=== PATIENT | female | born 1965 | race Caucasian/White ===

== ENCOUNTER 2017-01-28 21:10 | Emergency (ER) | payer BC, MEDICAID ==
--- NOTE | 2017-01-29 01:15 | EDM.PDOC ---
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 The pain radiated through to her left scapular area. It was not modifiable with breathing or position. She had no associated symptoms, such as dyspnea, nausea, diaphoresis, or sense of impending doom. The symptoms resolved on their own, without treatment, about 5 or 10 minutes later. They have not recurred. No prior similar symptoms. The patient's PCP is Dr. Moreau. Left Upper Arm Pain Score (Numeric/FACES): 5 - Related Data Allergies Allergy/AdvReac Type Severity Reaction Status Date / Time Tetanus Vaccines and Toxoid Allergy Cannot Verified 01/28/17 21:37 [Tetanus Vaccines & Toxoid] Remember Home Meds: Home Meds Gemfibrozil 600 mg PO BID 01/28/17 [History] Hydrochlorothiazide 25 mg PO DAILY 01/28/17 [History] Levothyroxine Sodium [Levoxyl] 137 mcg PO DAILY 01/28/17 [History] glipiZIDE [Glucotrol XL] 5 mg PO BID 01/28/17 [History] metFORMIN [Glucophage XR] 1,000 mg PO BID 01/28/17 [History] Past Medical History Cardiovascular History: Reports: Blood Clots/VTE/DVT, High Cholesterol, Hypertension Gastrointestinal History: Reports: Cholelithiasis Musculoskeletal History: Reports: Arthritis (neck) Endocrine/Metabolic History: Reports: Diabetes, Type II, Hypothyroidism, Obesity /BMI 30+ - Past Surgical History HEENT Surgical History: Reports: Adenoidectomy, Tonsillectomy GI Surgical History: Reports: Cholecystectomy Social & Family History - Tobacco Use Smoking Status *Q: Current Every Day Smoker Years of Tobacco use: 25 Packs/Tins Daily: 1 - Caffeine Use Caffeine Use: Reports: Tea - Alcohol Use Alcohol Use History: Yes Alcohol Use Frequency: Rarely - Recreational Drug Use Recreational Drug Use: No - Living Situation & Occupation Living situation: Reports: Single, Other (Roommate) 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[employer]) ED ROS GENERAL - Review of Systems Review Of Systems: See Below Constitutional: Reports: No Symptoms HEENT: Reports: No Symptoms Respiratory: Reports: No Symptoms Cardiovascular: Reports: No Symptoms Endocrine: Reports: No Symptoms GI/Abdominal: Reports: No Symptoms : Reports: No Symptoms Musculoskeletal: Reports: No Symptoms Skin: Reports: No Symptoms Neurological: Reports: No Symptoms Psychiatric: Reports: No Symptoms Hematologic/Lymphatic: Reports: No Symptoms Immunologic: Reports: No Symptoms ED EXAM, GENERAL - Physical Exam Exam: See Below Exam Limited By: No Limitations General Appearance: Alert, WD/WN, No Apparent Distress Eye Exam: Bilateral Eye: Normal Inspection Ears: Normal External Exam, Hearing Grossly Normal Nose: Normal Inspection, No Blood Throat/Mouth: Normal Inspection, Normal Lips, Normal Voice, No Airway Compromise Head: Atraumatic, Normocephalic Neck: Normal Inspection, Full Range of Motion Respiratory/Chest: No Respiratory Distress, Lungs Clear, Normal Breath Sounds, No Accessory Muscle Use, Chest Non-Tender Cardiovascular: Normal Peripheral Pulses, Regular Rate, Rhythm, No Gallop, No JVD, No Murmur, No Rub Peripheral Pulses: 4+: Radial (L), Radial (R) GI/Abdominal: Normal Bowel Sounds, Soft, Non-Tender, No Organomegaly, No Distention, No Abnormal Bruit, No Mass, Other (Obese) (Female) Exam: Deferred Rectal (Female) Exam: Deferred Back Exam: Normal Inspection, Full Range of Motion, Other (No tenderness to palpation of the left parascapular area, where the patient indicates that she had pain earlier) Extremities: Normal Inspection, Normal Range of Motion, No Pedal Edema, Normal Capillary Refill Neurological: Alert, Oriented, Normal Cognition, No Motor/Sensory Deficits Psychiatric: Normal Affect Skin Exam: Warm, Dry, Intact, Normal Color, No Rash Lymphatic: No Adenopathy Course - Vital Signs Last Recorded V/S: Last Vital Signs Temp 35.9 C 01/28/17 21:32 Pulse 80 01/29/17 01:29 Resp 18 01/29/17 01:29 BP 128/79 01/29/17 01:29 Pulse Ox 98 01/29/17 01:29 - Orders/Labs/Meds Orders: Active Orders 24 hr Category Date Time Status Chest 2V [CR] Stat Exams 01/29/17 00:20 Taken Labs: Laboratory Tests 01/29/17 01/29/17 Range/Units 00:33 00:33 D-Dimer, Quantitative 0.38 (0.19-0.59) mg/L Sodium 139 (136-145) mEq/L Potassium 4.3 (3.5-5.1) mEq/L Chloride 103 (98-107) mEq/L Carbon Dioxide 29 (21-32) mEq/L Anion Gap 11.3 (5-15) BUN 27 H (7-18) mg/dL Creatinine 1.6 H (0.55-1.02) mg/dL Est Cr Clr Drug Dosing 39.82 mL/min Estimated GFR (MDRD) 34 (>60) mL/min BUN/Creatinine Ratio 16.9 (14-18) Glucose 162 H (74-106) mg/dL Calcium 9.9 (8.5-10.1) mg/dL - Re-Assessments/Exams Free Text/Narrative Re-Assessment/Exam: 01/29/17 01:14 Two-view chest radiograph appears to be grossly normal. Cardiac silhouette is within normal limits. No pulmonary vascular congestion. No pleural effusions. No focal infiltrate. No pneumothorax. Formal read per the Radiologist pending. The patient's BMP reveals an elevated BUN/Cr of 27/1.6, along with modest hyperglycemia 162. No prior labs available for comparison. Tonight's workup essentially excludes a pulmonary embolus, pneumothorax, and pneumonia. The patient's pain was most likely caused by muscle spasm. Departure - Departure Time of Disposition: 01:20 Disposition: Home, Self-Care 01 Condition: Good Clinical Impression: Muscle spasm, Renal insufficiency, Hyperglycemia due to type 2 diabetes mellitus - Discharge Information Instructions: Muscle Cramps and Spasms, [id number] Referrals: John Moreau MD [Primary Care Provider] - Forms: ED Department Discharge Additional Instructions: You were seen in the emergency room for left-sided chest pain that radiated through to your left back. Workup in the ER included blood work and a chest x-ray. Your workup showed that you do not have a blood clot in your lungs, a collapsed lung, or pneumonia. Your workup showed that your kidneys are not functioning optimally. Your BUN/Cr were 27/1.6, and your blood sugar was modestly elevated at 162. We do not have prior labs to compare, therefore we cannot say if your kidney dysfunction is a new or chronic problem. We recommend you follow-up with Dr. Moreau in this regard. Your chest pain was MOST LIKELY due to a muscle spasm. If any other problems, please do not hesitate to return to the ER. - My Orders Last 24 Hours: My Active Orders 01/29/17 00:20 Chest 2V [CR] Stat - Assessment/Plan Last 24 Hours: My Active Orders 01/29/17 00:20 Chest 2V [CR] Stat
[2017-01-29 01:52] VITALS: BP 128/79
--- NOTE | 2017-01-29 10:41 | CR ---
Chest: Two views of the chest were obtained. Comparison: No previous chest x-ray. Heart size and mediastinum are normal. Lungs are clear. Slight degenerative change is scattered within the spine. Minimal scoliosis is noted. Impression: 1. Incidental findings. Nothing acute is identified on two-view chest x-ray. Diagnostic code #2
== END 2017-01-29 01:29 | disposition home or self-care (01) ==
LOC: JD.ED 21:10
DX: M62.838 Other muscle spasm (principal); N28.9 Disorder of kidney and ureter, unspecified; E11.65 Type 2 diabetes mellitus with hyperglycemia; E78.00 Pure hypercholesterolemia, unspecified; I10 Essential (primary) hypertension; E03.9 Hypothyroidism, unspecified; F17.210 Nicotine dependence, cigarettes, uncomplicated; E66.9 Obesity, unspecified; Z68.41 Body mass index [BMI] 40.0-44.9, adult; Z90.49 Acquired absence of other specified parts of digestive tract; Z98.890 Other specified postprocedural states; Z86.718 Personal history of other venous thrombosis and embolism; Z79.84 Long term (current) use of oral hypoglycemic drugs; Z79.899 Other long term (current) drug therapy; Z88.8 Allergy status to other drugs, medicaments and biological substances
CPT/HCPCS: 36415; 71020; 71020-26; 80048; 85379; 99283; 99284

== ENCOUNTER 2017-07-20 09:59 | Inpatient (IN) | payer MEDICAID ==
[2017-07-20] MEDS ORDERED: Ampicillin/Sulbactam Na 3 GM in Sodium Chloride 0.9% 100 ML IV ONE (10:44)
--- NOTE | 2017-07-20 10:51 | EDM.PDOC ---
ED HPI GENERAL MEDICAL PROBLEM - General Chief Complaint: Lower Extremity Injury/Pain Stated Complaint: LEFT LEG SWELLING Time Seen by Provider: 07/20/17 10:07 Source of Information: Reports: Patient, Family, RN Notes Reviewed History Limitations: Reports: No Limitations - History of Present Illness INITIAL COMMENTS - FREE TEXT/NARRATIVE: The patient states she has had swelling, erythema, and pain to her left leg for the past 2-3 days. No recent fever. The patient is diabetic, but has not checked her sugar in about one month. The patient denies prior similar symptoms. She states that she has a history of pulmonary embolus about 20 years ago, but was told at the time that the blood clots formed in her lungs. There are ulcerations on the dorsal aspect of her left second and fourth toes - the patient states that these are about 2 years old. The patient states that she uses antibacterial soap at home. The patient's PCP is Dr. Moreau. Left Lower Leg Pain Score (Numeric/FACES): 9 - Related Data Allergies Allergy/AdvReac Type Severity Reaction Status Date / Time Tetanus Vaccines and Toxoid Allergy Cannot Verified 01/28/17 21:37 [Tetanus Vaccines & Toxoid] Remember Home Meds: Home Meds Gemfibrozil 600 mg PO BID 01/28/17 [History] Hydrochlorothiazide 25 mg PO DAILY 01/28/17 [History] Levothyroxine Sodium [Levoxyl] 137 mcg PO DAILY 01/28/17 [History] glipiZIDE [Glucotrol XL] 5 mg PO BID 01/28/17 [History] metFORMIN [Glucophage XR] 1,000 mg PO BID 01/28/17 [History] Aspirin 325 mg PO DAILY 07/20/17 [History] Past Medical History Cardiovascular History: Reports: Blood Clots/VTE/DVT, High Cholesterol, Hypertension Gastrointestinal History: Reports: Cholelithiasis Musculoskeletal History: Reports: Arthritis Endocrine/Metabolic History: Reports: Diabetes, Type II, Hypothyroidism, Obesity /BMI 30+ - Past Surgical History HEENT Surgical History: Reports: Adenoidectomy, Tonsillectomy GI Surgical History: Reports: Cholecystectomy Social & Family History - Tobacco Use Smoking Status *Q: Current Every Day Smoker Years of Tobacco use: 30 Packs/Tins Daily: 0.5 - Caffeine Use Caffeine Use: Reports: Soda - Recreational Drug Use Recreational Drug Use: No - Living Situation & Occupation Living situation: Reports: Single, Other (Roommate) 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 ED EXAM, GENERAL - Physical Exam Exam: See Below Exam Limited By: No Limitations General Appearance: Alert, WD/WN, No Apparent Distress Eye Exam: Bilateral Eye: Normal Inspection Ears: Normal External Exam, Hearing Grossly Normal Nose: Normal Inspection, No Blood Throat/Mouth: Normal Inspection, Normal Lips, Normal Voice, No Airway Compromise Head: Atraumatic, Normocephalic Neck: Normal Inspection, Full Range of Motion Respiratory/Chest: No Respiratory Distress, Lungs Clear, Normal Breath Sounds, No Accessory Muscle Use Cardiovascular: Normal Peripheral Pulses, Regular Rate, Rhythm, No Gallop, No JVD, No Murmur, No Rub Peripheral Pulses: 4+: Radial (L), Radial (R) GI/Abdominal: Normal Bowel Sounds, Soft, Non-Tender, No Organomegaly, No Distention, No Abnormal Bruit, No Mass, Other (Obese) (Female) Exam: Deferred Rectal (Female) Exam: Deferred Extremities: Other (There is significant swelling and erythema to the left leg, up to the knee. The skin is dry and flaky. The patient reports tenderness to palpation. There is calor to palpation.) Neurological: Alert, Oriented, Normal Cognition, No Motor/Sensory Deficits Psychiatric: Normal Affect Skin Exam: Warm, Dry, Intact, Normal Color, No Rash Course - Vital Signs Last Recorded V/S: Last Vital Signs Temp 36.3 C 07/20/17 10:07 Pulse 92 07/20/17 10:07 Resp 20 07/20/17 10:07 BP 104/65 07/20/17 10:07 Pulse Ox 99 07/20/17 10:07 - Orders/Labs/Meds Orders: Active Orders 24 hr Category Date Time Status Accu Check [Blood Glucose Check, Bedside] [RC] ONETIME Care 07/20/17 10:46 Active Labs: Laboratory Tests 07/20/17 07/20/17 07/20/17 Range/Units 10:44 10:44 10:44 WBC 14.10 H (3.98-10.04) K/mm3 RBC 4.02 (3.98-5.22) M/mm3 Hgb 12.8 (11.2-15.7) gm/L Hct 37.9 (34.1-44.9) % MCV 94.3 (79.4-94.8) fl MCH 31.8 (25.6-32.2) pg MCHC 33.8 (32.2-35.5) g/dl RDW Std Deviation 53.5 H (36.4-46.3) fL Plt Count 183 (182-369) K/mm3 MPV 11.2 (9.4-12.3) fl Neutrophils % (Manual) 85 H (40-60) % Band Neutrophils % 0 (0-10) % Lymphocytes % (Manual) 10 L (20-40) % Atypical Lymphs % 0 % Monocytes % (Manual) 4 (2-10) % Eosinophils % (Manual) 1 (0.7-5.8) % Basophils % (Manual) 0 L (0.1-1.2) Platelet Estimate Adequate Microcytosis 1+ slight RBC Morph Comment abnormal PT 12.7 (8.0-13.0) SECONDS INR 1.15 APTT 30 (22-36) SECONDS Sodium 130 L (136-145) mEq/L Potassium 4.0 (3.5-5.1) mEq/L Chloride 95 L (98-107) mEq/L Carbon Dioxide 22 (21-32) mEq/L Anion Gap 17.0 H (5-15) BUN 50 H (7-18) mg/dL Creatinine 2.0 H (0.55-1.02) mg/dL Est Cr Clr Drug Dosing 31.50 mL/min Estimated GFR (MDRD) 26 (>60) mL/min BUN/Creatinine Ratio 25.0 H (14-18) Glucose 108 H (74-106) mg/dL POC Glucose (70-105) mg/dL Calcium 9.6 (8.5-10.1) mg/dL Magnesium 1.8 (1.8-2.4) mg/dl Total Bilirubin 0.4 (0.2-1.0) mg/dL AST 37 (15-37) U/L ALT 25 (14-59) U/L Alkaline Phosphatase 82 (46-116) U/L Total Protein 8.3 H (6.4-8.2) g/dl Albumin 2.8 L (3.4-5.0) g/dl Globulin 5.5 gm/dL Albumin/Globulin Ratio 0.5 L (1-2) MRSA (PCR) 07/20/17 07/20/17 Range/Units 10:45 10:49 WBC (3.98-10.04) K/mm3 RBC (3.98-5.22) M/mm3 Hgb (11.2-15.7) gm/L Hct (34.1-44.9) % MCV (79.4-94.8) fl MCH (25.6-32.2) pg MCHC (32.2-35.5) g/dl RDW Std Deviation (36.4-46.3) fL Plt Count (182-369) K/mm3 MPV (9.4-12.3) fl Neutrophils % (Manual) (40-60) % Band Neutrophils % (0-10) % Lymphocytes % (Manual) (20-40) % Atypical Lymphs % % Monocytes % (Manual) (2-10) % Eosinophils % (Manual) (0.7-5.8) % Basophils % (Manual) (0.1-1.2) Platelet Estimate Microcytosis RBC Morph Comment PT (8.0-13.0) SECONDS INR APTT (22-36) SECONDS Sodium (136-145) mEq/L Potassium (3.5-5.1) mEq/L Chloride (98-107) mEq/L Carbon Dioxide (21-32) mEq/L Anion Gap (5-15) BUN (7-18) mg/dL Creatinine (0.55-1.02) mg/dL Est Cr Clr Drug Dosing mL/min Estimated GFR (MDRD) (>60) mL/min BUN/Creatinine Ratio (14-18) Glucose (74-106) mg/dL POC Glucose 115 H (70-105) mg/dL Calcium (8.5-10.1) mg/dL Magnesium (1.8-2.4) mg/dl Total Bilirubin (0.2-1.0) mg/dL AST (15-37) U/L ALT (14-59) U/L Alkaline Phosphatase (46-116) U/L Total Protein (6.4-8.2) g/dl Albumin (3.4-5.0) g/dl Globulin gm/dL Albumin/Globulin Ratio (1-2) MRSA (PCR) Negative Meds: Medications Discontinued Medications Generic Name Dose Route Start Last Admin Trade Name Meng PRN Reason Stop Dose Admin Hydromorphone HCl 1 mg 07/20/17 12:33 07/20/17 12:39 Dilaudid IVPUSH 07/20/17 12:34 1 mg ONETIME ONE Administration Ampicillin Sodium/Sulbactam 100 mls @ 200 mls/hr 07/20/17 10:44 07/20/17 12: 22 Sodium 3 gm/ Sodium Chloride IV 07/20/17 11:13 200 mls/hr ONETIME ONE Administration Vancomycin HCl 2 gm/ Sodium 250 mls @ 250 mls/hr 07/20/17 10:44 07/20/17 11: 02 Chloride IV 07/20/17 11:43 250 mls/hr ONETIME STA Administration - Re-Assessments/Exams Free Text/Narrative Re-Assessment/Exam: 07/20/17 10:46 The patient appears to have significant cellulitis involving her entire left leg. The source could be one of the lesions on the dorsal aspect of her second or fourth toe, although she states that these are about 2 years old. I will order blood work, including an Accu-Chek, as the patient acknowledges that she has not checked her blood sugar in about one month, and an ultrasound of the left lower extremity to evaluate for a DVT. I will start the patient on empiric Unasyn and vancomycin, and I have ordered a MRSA screen. A pen demarcation of the superior aspect of the erythema on the left leg, just distal to the left knee, has been made. The patient will need to be hospitalized for IV antibiotics until improvement of her cellulitis is demonstrated, at which time she can be switched to oral antibiotics. 07/20/17 10:55 The patient's Accu-Chek returned 115. No immediate treatment is required. 07/20/17 13:00 Notified by the laboratory that the patient's MRSA screen has returned negative. 07/20/17 13:45 Venous Doppler of the left lower extremity is read by Dr. Horan as: 1. Popliteal cyst. Subcutaneous edema. 2. No definite findings of deep venous thrombosis seen within the left lower extremity right common femoral vein. 3. Slightly limited study as noted above. 07/20/17 13:[address] Lewis at 13:46. She agrees to admit the patient to Med Surg. The patient meets full admission criterion. Departure - Departure Time of Disposition: 13:51 Disposition: Admitted As Inpatient 68 Condition: Fair Clinical Impression: Cellulitis of left leg, Chronic kidney disease - Discharge Information - My Orders Last 24 Hours: My Active Orders 07/20/17 10:46 Accu Check [Blood Glucose Check, Bedside] [RC] ONETIME - Assessment/Plan Last 24 Hours: My Active Orders 07/20/17 10:46 Accu Check [Blood Glucose Check, Bedside] [RC] ONETIME
[2017-07-20] MEDS ORDERED: HYDROmorphone 1 MG/ML Syringe IVPUSH ONE (12:33)
--- NOTE | 2017-07-20 13:40 | US ---
No diagnostic code was given for this report. Following is the corrected diagnostic code: Diagnostic code #2 --- Addendum1 above dictated on [07/28/2017 10:11] by [Pastora Horan Hilton J.] --- --- Addendum1 above signed on [07/28/2017 10:13] by [Pastora Horan Hilton J.] --- --- Original report below dictated on [07/20/2017 13:36] by [Pastora Horan Hilton J.] --- --- Original report below signed on [07/20/2017 13:37] by [Pastora Horan Hilton J.] --- Left lower extremity deep venous ultrasound: Duplex and color flow imaging was obtained of the left common femoral, proximal greater saphenous, superficial femoral, popliteal, posterior tibial and peroneal veins. Technologist's note: Limited below-knee due to large body habitus and swelling Popliteal cyst is identified. Subcutaneous edema is noted within the lower extremity. No definite findings of deep venous thrombosis is seen. Impression: 1. Popliteal cyst. Subcutaneous edema. 2. No definite findings of deep venous thrombosis seen within the left lower extremity right common femoral vein. 3. Slightly limited study as noted above. If patient continues to be symptomatic recommend follow-up venous ultrasound and 48 hours. --- Addendum1 signed ---
[2017-07-20] MEDS: Sodium Chloride 0.45% 1,000 ML IV SCH (16:04)
[2017-07-20] MEDS: Insulin Aspart 100 Units/ML 3 ML Pen SUBCUT SCH ×2 (17:01→23:42)
[2017-07-20] MEDS ORDERED: Ibuprofen 600 MG Tab PO PRN (17:03)
[2017-07-20] MEDS ORDERED: 50% Dextrose in Water 50 ML Syringe IVPUSH PRN (17:12)
--- NOTE | 2017-07-20 17:15 | PCM.HP ---
H&P History of Present Illness - General Date of Service: 07/20/17 Admit Problem/Dx: Admission Diagnosis/Problem Admission Diagnosis/Problem Cellulitis Source of Information: Family, Provider History Limitations: Reports: No Limitations - History of Present Illness Initial Comments - Free Text/Narative: The patient is a 52 year old middle aged diabetic who has not checked her bloood sugar in at least a month. She states that it normally runs less than 180. She reports persistent foot ulcerations on the dorsum of each foot involving the 2 and 4 metatarsals. She stated that her feet have had ulcers for at least a year because of her shoes. The LE requiring attention on this admission is the left, the erythema extends to the knee. The leg is swollen and painful. The patient has received Unasyn, and Vancomycin in the ED. The patient reports a history of PE reportedly over 20 years ago. She has not had any recent change in her medication. She does not wish to use insulin if needed for BS control. The patient will be admitted to [facility] telemetry. Onset of Symptoms: Reports: Gradual Symptom Onset Date: 07/17/17 Duration of Symptoms: Reports: Day(s):, Getting Worse Location: Reports: Lower Extremity, Left Quality: Reports: Same as Previous Episode Improves with: Reports: Medication Worsens with: Reports: None Associated Symptoms: Reports: No Other Symptoms Left Lower Leg Pain Score (Numeric/FACES): 9 - Related Data Allergies/Adverse Reactions: Allergies Allergy/AdvReac Type Severity Reaction Status Date / Time Tetanus Vaccines and Toxoid Allergy Cannot Verified 07/20/17 15:25 [Tetanus Vaccines & Toxoid] Remember Home Medications: Home Meds Gemfibrozil 600 mg PO BID 01/28/17 [History] Hydrochlorothiazide 25 mg PO DAILY 01/28/17 [History] Levothyroxine Sodium [Levoxyl] 137 mcg PO DAILY 01/28/17 [History] glipiZIDE [Glucotrol XL] 5 mg PO BID 01/28/17 [History] metFORMIN [Glucophage XR] 1,000 mg PO BID 01/28/17 [History] Aspirin 325 mg PO DAILY 07/20/17 [History] Past Medical History Cardiovascular History: Reports: Blood Clots/VTE/DVT, High Cholesterol, Hypertension Gastrointestinal History: Reports: Cholelithiasis Musculoskeletal History: Reports: Arthritis Endocrine/Metabolic History: Reports: Diabetes, Type II, Hypothyroidism, Obesity /BMI 30+ Dermatologic History: Reports: Cellulitis - Past Surgical History HEENT Surgical History: Reports: Adenoidectomy, Tonsillectomy GI Surgical History: Reports: Cholecystectomy Social & Family History - Tobacco Use Smoking Status *Q: Current Every Day Smoker Years of Tobacco use: 30 Packs/Tins Daily: 1 - Caffeine Use Caffeine Use: Reports: Soda - Recreational Drug Use Recreational Drug Use: No - Living Situation & Occupation Living situation: Reports: Single, Other (Roommate) 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[employer]) H&P Review of Systems - Review of Systems: Review Of Systems: See Below General: Reports: Malaise, Weakness HEENT: Reports: No Symptoms Pulmonary: Reports: No Symptoms Cardiovascular: Reports: No Symptoms Gastrointestinal: Reports: No Symptoms Genitourinary: Reports: No Symptoms Musculoskeletal: Reports: Leg Pain Psychiatric: Reports: No Symptoms Neurological: Reports: No Symptoms Hematologic/Lymphatic: Reports: No Symptoms Immunologic: Reports: No Symptoms Exam - Exam Exam: See Below - Vital Signs Vital Signs: Last Vital Signs Temp 36.6 C 07/20/17 14:52 Pulse 88 07/20/17 14:52 Resp 20 07/20/17 14:52 BP 91/54 L 07/20/17 14:52 Pulse Ox 96 07/20/17 14:52 Weight: 136.123 kg - Exam Quality Assessment: DVT Prophylaxis General: Alert, Oriented, Cooperative HEENT: Pupils Equal, Pupils Reactive, PERRLA Neck: Trachea Midline Lungs: Normal Respiratory Effort, Decreased Breath Sounds Cardiovascular: Regular Rate, Regular Rhythm GI/Abdominal Exam: Normal Bowel Sounds, Soft, Non-Tender, No Organomegaly, No Distention (Female) Exam: Deferred Rectal (Female) Exam: Deferred Back Exam: Normal Inspection Extremities: Pedal Edema, Increased Warmth, Redness Skin: Warm Neurological: Cranial Nerves Intact, Normal Speech Neuro Extensive - Mental Status: Alert, Oriented x3, Normal Mood/Affect, Normal Cognition, Memory Intact Neuro Extensive - Motor, Sensory, Reflexes: CN II-XII Intact Psychiatric: Alert, Normal Affect, Normal Mood - Patient Data Lab Results Last 24 hrs: Laboratory Results - last 24 hr 07/20/17 Range/Units 16:45 POC Glucose 248 H (70-105) mg/dL Result Diagrams: 07/20/17 10:44 07/20/17 10:44 *Q Meaningful Use (ADM) - VTE *Q VTE Criteria *Q: - Stroke *Q Stroke Criteria *Q: - AMI *Q AMI Criteria *Q: Problem List Initiated/Reviewed/Updated: Yes Orders Last 24hrs: Active Orders 24 hr Category Date Time Status Activity as Tolerated [RC] .Routine Care 07/20/17 17:04 Ordered Blood Glucose Check, Bedside [RC] QIDACANDBED Care 07/20/17 17:00 Active Notify Provider Consults [RC] ASDIRECTED Care 07/20/17 17:01 Ordered Consult to Case Management [CONS] Routine Cons 07/20/17 17:02 Ordered Consult to Dietary Service Aide [Consult to Diabetic Nurse Cons 07/20/17 15:59 Active Specialist] [CONS] Routine Consult to Dietary [Consult to Slip Operator] [CONS] Cons 07/20/17 16:00 Active Routine Consult to Occupational Therapy [OT Evaluation and Cons 07/21/17 10:00 Ordered Treatment] [CONS] Routine Consult to Physical Therapy [PT Evaluation and Cons 07/21/17 10:00 Ordered Treatment] [CONS] Routine Consult to Physician [CONS] Routine Cons 07/20/17 17:00 Ordered ADA Diabetic [[employer] Diet] [DIET Diet 07/20/17 Dinner Active ] Heart Healthy Diet [DIET] Diet 07/20/17 Dinner Active CV Lower Ext Arterial Duplex [US] Routine Exams 07/21/17 16:00 Ordered Foot w wo Cont Lt [MR] Routine Exams 07/21/17 13:00 Ordered CBC W/O DIFF,HEMOGRAM [HEME] MOTH@0700 Lab 07/21/17 07:00 Ordered CBC W/O DIFF,HEMOGRAM [HEME] MOTH@0700 Lab 07/24/17 07:00 Ordered CBC W/O DIFF,HEMOGRAM [HEME] MOTH@0700 Lab 07/28/17 07:00 Ordered CBC W/O DIFF,HEMOGRAM [HEME] MOTH@0700 Lab 07/31/17 07:00 Ordered CBC W/O DIFF,HEMOGRAM [HEME] MOTH@0700 Lab 08/04/17 07:00 Ordered CBC W/O DIFF,HEMOGRAM [HEME] MOTH@0700 Lab 08/07/17 07:00 Ordered GLYCOSYLATED HEMOGLOBIN,HGBA1C [CHEM] Routine Lab 07/21/17 05:00 Ordered LIPID PANEL [CHEM] Routine Lab 07/21/17 05:00 Ordered VANCOMYCIN TROUGH [CHEM] Timed Lab 07/23/17 10:30 Ordered Ampicillin/Sulbactam Na [Unasyn] 3 gm Med 07/20/17 18:00 Active Sodium Chloride 0.9% [Normal Saline] 100 ml IV Q6H Aspirin Med 07/21/17 09:00 Ordered 325 mg PO DAILY Dextrose 50% in Water Med 07/20/17 17:12 Ordered 50 ml IVPUSH ASDIRECTED PRN Enoxaparin [Lovenox] Med 07/21/17 09:00 Ordered 30 mg SUBCUT DAILY Gemfibrozil [Lopid] Med 07/20/17 21:00 Ordered 600 mg PO BID Heparin Sodium Med 07/20/17 17:15 Ordered 5,000 units SUBCUT Q8H Ibuprofen [Motrin] Med 07/20/17 17:03 Ordered 600 mg PO Q8H PRN Insulin Aspart [NovoLOG] Med 07/20/17 17:00 Active See Protocol SUBCUT QIDACANDBED Levothyroxine [Levothroid] Med 07/21/17 09:00 Ordered 137 mcg PO DAILY Sodium Chloride 0.45% 1,000 ml Med 07/20/17 16:00 Active IV ASDIRECTED Vancomycin 1 gm Med 07/21/17 11:00 Active Vancomycin 500 mg Sodium Chloride 0.9% [Normal Saline] 500 ml IV Q24H Vancomycin Pharmacy to Dose [Pharmacy to Dose - Med 07/20/17 16:15 Pending Vancomycin] 1 dose .XX ASDIRECTED glipiZIDE [Glucotrol XL] Med 07/20/17 21:00 Ordered 5 mg PO BID metFORMIN Med 07/20/17 21:00 Ordered 1,000 mg PO BID Resuscitation Status Routine Resus Stat 07/20/17 14:56 Ordered Medication Orders Aspirin (Ecotrin) 325 mg PO DAILY [facility] Dextrose/Water (Dextrose 50% In Water) 50 ml IVPUSH ASDIRECTED PRN PRN Reason: Hypoglycemia Enoxaparin Sodium (Lovenox) 30 mg SUBCUT DAILY [facility] Gemfibrozil (Lopid) 600 mg PO BIDAC [facility] Glipizide (Glucotrol Xl) 5 mg PO BID [facility] Heparin Sodium (Porcine) (Heparin Sodium) 5,000 units SUBCUT Q8H [facility] Sodium Chloride (Sodium Chloride 0.45%) 1,000 mls @ 150 mls/hr IV ASDIRECTED [facility] Stop: 07/21/17 02:01 Last Admin: 07/20/17 16:04 Dose: 150 mls/hr Ampicillin Sodium/Sulbactam (Sodium 3 gm/ Sodium Chloride) 100 mls @ 200 mls/ hr IV Q6H [facility] Vancomycin HCl 1 gm/Vancomycin HCl 500 mg/ Sodium Chloride 500 mls @ 333 mls/ hr IV Q24H [facility] Ibuprofen (Motrin) 600 mg PO Q8H PRN PRN Reason: Pain Insulin Aspart (Novolog) 0 unit SUBCUT QIDACANDBED [facility] PRN Reason: Protocol Last Admin: 07/20/17 17:01 Dose: Not Given Levothyroxine Sodium (Levothroid) 137 mcg PO DAILY@0600 [facility] Non-Formulary Medication (Metformin) 1,000 mg PO BID [facility] Vancomycin HCl (Pharmacy To Dose - Vancomycin) 1 dose .XX ASDIRECTED [facility] Assessment/Plan Comment:: Impression: LLE diabetic foot ulcer LLE cellulitis Venous doppler is umremarkable for DVT; popliteal cyst noted. History of reportedly PE Diabetes Mellitus type II Morbid obesity Chronic HLD CKD Plan: IVF IV antibiotics Pain management Home meds Daily Labs Gen surg consult PT/OT consult CM consult DVT/GI prophylaxis Weight loss consult with dietary DM consult for review of pathophysiology. DM secondary prevention Elevated LLE as tolerated.
[2017-07-20] MEDS: metFORMIN 500 MG Tab PO SCH (18:09)
[2017-07-20] MEDS: Heparin Sodium 5,000 Units/ML Vial SUBCUT SCH (18:10)
[2017-07-20] MEDS: Ampicillin/Sulbactam Na 3 GM in Sodium Chloride 0.9% 100 ML IV SCH (18:10)
[2017-07-20] MEDS: Gabapentin 300 MG Cap PO SCH (20:30)
[2017-07-20] MEDS: Gemfibrozil 600 MG Tab PO SCH (20:30)
[2017-07-20] MEDS: glipiZIDE 5 MG Tab.ER PO SCH (20:30)
[2017-07-21] MEDS: Ampicillin/Sulbactam Na 3 GM in Sodium Chloride 0.9% 100 ML IV SCH ×2 (00:34→06:21)
[2017-07-21] MEDS: Sodium Chloride 0.45% 1,000 ML IV SCH (00:35)
[2017-07-21] MEDS: Heparin Sodium 5,000 Units/ML Vial SUBCUT SCH ×3 (01:32→17:44)
[2017-07-21] MEDS ORDERED: Levothyroxine 25 MCG Tab PO SCH (06:00)
[2017-07-21] MEDS ORDERED: Levothyroxine 125 MCG Tab PO SCH (06:00)
[2017-07-21] MEDS: Gemfibrozil 600 MG Tab PO SCH ×2 (06:26→17:44)
[2017-07-21] MEDS: metFORMIN 500 MG Tab PO SCH ×2 (06:26→18:36)
[2017-07-21] MEDS: Insulin Aspart 100 Units/ML 3 ML Pen SUBCUT SCH ×4 (07:53→23:49)
[2017-07-21] MEDS: glipiZIDE 5 MG Tab.ER PO SCH ×2 (08:54→20:48)
[2017-07-21] MEDS: Aspirin 325 MG Tab.EC PO SCH (08:54)
[2017-07-21] MEDS ORDERED: Enoxaparin 30 MG/0.3 ML Syringe SUBCUT SCH (09:00)
[2017-07-21] MEDS: Vancomycin 1500 MG in Sodium Chloride 0.9% 500 ML IV SCH ×3 (10:31)
[2017-07-21] MEDS: Saccharomyces Boulardii (Probiotic) 250 MG Cap PO SCH ×2 (10:31→20:41)
[2017-07-21] MEDS ORDERED: ceFAZolin 2 GM in Premix Bag 1 BAG IV SCH (11:00)
[2017-07-21] MEDS ORDERED: LORazepam 2 MG/ML MDV IVPUSH ONE (11:05)
[2017-07-21] MEDS ORDERED: Sodium Chloride 0.45% 1,000 ML IV SCH (11:15)
--- NOTE | 2017-07-21 11:46 | PCM.PN ---
- General Info Date of Service: 07/21/17 Subjective Update: Patient makes numerous complaints about the quality of care, and has changed her story of the injury of her foot each time she is interviewed. Functional Status: Reports: Tolerating Diet - Review of Systems General: Reports: No Symptoms HEENT: Reports: No Symptoms Pulmonary: Reports: No Symptoms Cardiovascular: Reports: No Symptoms Gastrointestinal: Reports: No Symptoms Genitourinary: Reports: No Symptoms Musculoskeletal: Reports: No Symptoms Skin: Reports: No Symptoms Neurological: Reports: No Symptoms Psychiatric: Reports: No Symptoms - Patient Data Vitals - Most Recent: Last Vital Signs Temp 36.9 C 07/21/17 08:14 Pulse 87 07/21/17 08:14 Resp 19 07/21/17 08:14 BP 87/45 L 07/21/17 08:14 Pulse Ox 91 L 07/21/17 08:14 Weight - Most Recent: 136.758 kg I&O - Last 24 Hours: Intake & Output 07/20/17 07/21/17 07/21/17 22:59 06:59 14:59 Intake Total 323 116 5220 Output Total 1450 Balance 120 -650 1063 Lab Results Last 24 Hours: Laboratory Results - last 24 hr 07/20/17 07/20/17 07/21/17 Range/Units 16:45 20:28 06:22 WBC (3.98-10.04) K/mm3 RBC (3.98-5.22) M/mm3 Hgb (11.2-15.7) gm/L Hct (34.1-44.9) % MCV (79.4-94.8) fl MCH (25.6-32.2) pg MCHC (32.2-35.5) g/dl RDW Std Deviation (36.4-46.3) fL Plt Count (182-369) K/mm3 MPV (9.4-12.3) fl Sodium (136-145) mEq/L Potassium (3.5-5.1) mEq/L Chloride (98-107) mEq/L Carbon Dioxide (21-32) mEq/L Anion Gap (5-15) BUN (7-18) mg/dL Creatinine (0.55-1.02) mg/dL Est Cr Clr Drug Dosing mL/min Estimated GFR (MDRD) (>60) mL/min BUN/Creatinine Ratio (14-18) Glucose (74-106) mg/dL POC Glucose 248 H 214 H 101 (70-105) mg/dL Hemoglobin A1c (4.50-6.20) % Lactic Acid (0.4-2.0) mmol/L Calcium (8.5-10.1) mg/dL C-Reactive Protein (<1.0) mg/dL Triglycerides (<150) mg/dL Cholesterol (<200) mg/dL LDL Cholesterol Direct (<100) mg/dL HDL Cholesterol (40-59) mg/dL 07/21/17 07/21/17 07/21/17 Range/Units 06:23 06:23 06:23 WBC 10.01 (3.98-10.04) K/mm3 RBC 3.42 L (3.98-5.22) M/mm3 Hgb 10.8 L (11.2-15.7) gm/L Hct 32.4 L (34.1-44.9) % MCV 94.7 (79.4-94.8) fl MCH 31.6 (25.6-32.2) pg MCHC 33.3 (32.2-35.5) g/dl RDW Std Deviation 53.0 H (36.4-46.3) fL Plt Count 155 L (182-369) K/mm3 MPV 11.0 (9.4-12.3) fl Sodium (136-145) mEq/L Potassium (3.5-5.1) mEq/L Chloride (98-107) mEq/L Carbon Dioxide (21-32) mEq/L Anion Gap (5-15) BUN (7-18) mg/dL Creatinine (0.55-1.02) mg/dL Est Cr Clr Drug Dosing mL/min Estimated GFR (MDRD) (>60) mL/min BUN/Creatinine Ratio (14-18) Glucose (74-106) mg/dL POC Glucose (70-105) mg/dL Hemoglobin A1c 7.10 H (4.50-6.20) % Lactic Acid (0.4-2.0) mmol/L Calcium (8.5-10.1) mg/dL C-Reactive Protein (<1.0) mg/dL Triglycerides 228 H (<150) mg/dL Cholesterol 141 (<200) mg/dL LDL Cholesterol Direct 92 (<100) mg/dL HDL Cholesterol 18.0 L (40-59) mg/dL 07/21/17 07/21/17 Range/Units 06:23 10:15 WBC (3.98-10.04) K/mm3 RBC (3.98-5.22) M/mm3 Hgb (11.2-15.7) gm/L Hct (34.1-44.9) % MCV (79.4-94.8) fl MCH (25.6-32.2) pg MCHC (32.2-35.5) g/dl RDW Std Deviation (36.4-46.3) fL Plt Count (182-369) K/mm3 MPV (9.4-12.3) fl Sodium 134 L (136-145) mEq/L Potassium 3.5 (3.5-5.1) mEq/L Chloride 99 (98-107) mEq/L Carbon Dioxide 22 (21-32) mEq/L Anion Gap 16.5 H (5-15) BUN 53 H (7-18) mg/dL Creatinine 1.7 H (0.55-1.02) mg/dL Est Cr Clr Drug Dosing 35.62 mL/min Estimated GFR (MDRD) 32 (>60) mL/min BUN/Creatinine Ratio 31.2 H (14-18) Glucose 86 (74-106) mg/dL POC Glucose (70-105) mg/dL Hemoglobin A1c (4.50-6.20) % Lactic Acid 1.0 (0.4-2.0) mmol/L Calcium 8.7 (8.5-10.1) mg/dL C-Reactive Protein 34.2 H* (<1.0) mg/dL Triglycerides (<150) mg/dL Cholesterol (<200) mg/dL LDL Cholesterol Direct (<100) mg/dL HDL Cholesterol (40-59) mg/dL Med Orders - Current: Current Medications Aspirin (Ecotrin) 325 mg PO DAILY [facility] Last Admin: 07/21/17 08:54 Dose: Not Given Dextrose/Water (Dextrose 50% In Water) 50 ml IVPUSH ASDIRECTED PRN PRN Reason: Hypoglycemia Gabapentin (Neurontin) 300 mg PO BEDTIME [facility] Last Admin: 07/20/17 20:30 Dose: 300 mg Gemfibrozil (Lopid) 600 mg PO BIDAC [facility] Last Admin: 07/21/17 06:26 Dose: 600 mg Glipizide (Glucotrol Xl) 5 mg PO BID [facility] Last Admin: 07/21/17 08:54 Dose: 5 mg Heparin Sodium (Porcine) (Heparin Sodium) 5,000 units SUBCUT Q8H [facility] Last Admin: 07/21/17 09:31 Dose: Not Given Vancomycin HCl 1 gm/Vancomycin HCl 500 mg/ Sodium Chloride 500 mls @ 333 mls/ hr IV Q24H [facility] Last Admin: 07/21/17 10:31 Dose: 333 mls/hr Clindamycin Phosphate 600 mg/ (Sodium Chloride) 104 mls @ 208 mls/hr IV Q12H [facility] Sodium Chloride (Sodium Chloride 0.45%) 1,000 mls @ 150 mls/hr IV ASDIRECTED [facility] Ibuprofen (Motrin) 600 mg PO Q8H PRN PRN Reason: Pain Insulin Aspart (Novolog) 0 unit SUBCUT QIDACANDBED [facility] PRN Reason: Protocol Last Admin: 07/21/17 07:53 Dose: Not Given Levothyroxine Sodium (Levothroid) 137 mcg PO DAILY@0600 [facility] Metformin HCl (Glucophage) 1,000 mg PO BIDMEALS [facility] Rosuvastatin Calcium (Crestor) 5 mg PO BEDTIME [facility] Saccharomyces Boulardii (Florastor) 250 mg PO BID [facility] Last Admin: 07/21/17 10:31 Dose: 250 mg Discontinued Medications Enoxaparin Sodium (Lovenox) 30 mg SUBCUT DAILY [facility] Hydromorphone HCl (Dilaudid) 1 mg IVPUSH ONETIME ONE Stop: 07/20/17 12:34 Last Admin: 07/20/17 12:39 Dose: 1 mg Ampicillin Sodium/Sulbactam (Sodium 3 gm/ Sodium Chloride) 100 mls @ 200 mls/ hr IV ONETIME ONE Stop: 07/20/17 11:13 Last Admin: 07/20/17 12:22 Dose: 200 mls/hr Vancomycin HCl 2 gm/ Sodium (Chloride) 250 mls @ 250 mls/hr IV ONETIME STA Stop: 07/20/17 11:43 Last Admin: 07/20/17 11:02 Dose: 250 mls/hr Sodium Chloride (Sodium Chloride 0.45%) 1,000 mls @ 150 mls/hr IV ASDIRECTED [facility] Stop: 07/21/17 02:01 Last Admin: 07/21/17 00:35 Dose: 150 mls/hr Ampicillin Sodium/Sulbactam (Sodium 3 gm/ Sodium Chloride) 100 mls @ 200 mls/ hr IV Q6H [facility] Last Admin: 07/21/17 06:21 Dose: 200 mls/hr Piperacillin Sod/Tazobactam (Sod 4.5 gm/ Sodium Chloride) 100 mls @ 200 mls/hr IV ONETIME ONE Stop: 07/21/17 12:29 Piperacillin Sod/Tazobactam (Sod 4.5 gm/ Sodium Chloride) 100 mls @ 25 mls/hr IV Q8H [facility] Cefazolin Sodium/Dextrose 2 gm (/ Premix) 50 mls @ 100 mls/hr IV Q8H [facility] Ibuprofen (Motrin) 600 mg PO Q8H PRN PRN Reason: Pain Last Admin: 07/21/17 06:26 Dose: 600 mg Levothyroxine Sodium (Levothroid) 137 mcg PO DAILY@0600 [facility] Last Admin: 07/21/17 07:54 Dose: Not Given Levothyroxine Sodium (Levothyroxine) 0 mcg PO DAILY@0600 [facility] Last Admin: 07/21/17 06:25 Dose: 125 mcg Levothyroxine Sodium (Levothyroxine) 0 mcg PO DAILY@0600 [facility] Levothyroxine Sodium (Levothyroxine) 0 mcg PO DAILY@0600 [facility] Last Admin: 07/21/17 06:25 Dose: 25 mcg Lorazepam (Ativan) 1 mg IVPUSH ONETIME ONE Stop: 07/21/17 11:06 Metformin HCl (Glucophage) 1,000 mg PO BIDMEALS [facility] Last Admin: 07/21/17 06:26 Dose: 1,000 mg Vancomycin HCl (Pharmacy To Dose - Vancomycin) 1 dose .XX ASDIRECTED [facility] - Exam Quality Assessment: Supplemental Oxygen, DVT Prophylaxis (refusing DVT prophylaxis) General: Alert, Oriented, No Acute Distress HEENT: Pupils Equal, Pupils Reactive, EOMI Neck: No JVD Lungs: Normal Respiratory Effort, Decreased Breath Sounds Cardiovascular: Regular Rate, Regular Rhythm GI/Abdominal Exam: Normal Bowel Sounds, Soft, Non-Tender, No Organomegaly, No Distention (Female) Exam: Deferred Back Exam: Normal Inspection Extremities: Pedal Edema (3-4+, L>R), Leg Pain, Increased Warmth, Redness Neurological: No New Focal Deficit, Normal Speech Psy/Mental Status: Alert - Problem List Review Problem List Initiated/Reviewed/Updated: Yes - My Orders Last 24 Hours: My Active Orders 07/20/17 14:56 Resuscitation Status Routine 07/20/17 15:59 Consult to Philosophy Instructor [Consult to Diabetic Nurse Specialist] [CONS] Routine 07/20/17 16:00 Consult to Dietary [Consult to Ice Cream Vendor] [CONS] Routine 07/20/17 17:00 Blood Glucose Check, Bedside [RC] QIDACANDBED Consult to Physician [CONS] Routine Insulin Aspart [NovoLOG] See Protocol SUBCUT QIDACANDBED 07/20/17 17:01 Notify Provider Consults [RC] ASDIRECTED 07/20/17 17:02 Consult to Case Management [CONS] Routine 07/20/17 17:04 Activity as Tolerated [RC] .Routine 07/20/17 17:12 Dextrose 50% in Water 50 ml IVPUSH ASDIRECTED PRN 07/20/17 18:00 Heparin Sodium 5,000 units SUBCUT Q8H 07/20/17 18:31 PT Evaluation and Treatment [CONS] Routine 07/20/17 21:00 Gabapentin [Neurontin] 300 mg PO BEDTIME Gemfibrozil [Lopid] 600 mg PO BIDAC glipiZIDE [Glucotrol XL] 5 mg PO BID 07/20/17 Dinner ADA Diabetic [[place] [employer] Diet] [DIET] Heart Healthy Diet [DIET] 07/21/17 09:00 Aspirin [Ecotrin] 325 mg PO DAILY 07/21/17 10:00 Consult to Occupational Therapy [OT Evaluation and Treatment] [CONS] Routine Consult to Physical Therapy [PT Evaluation and Treatment] [CONS] Routine 07/21/17 11:00 Vancomycin 1 gm Vancomycin 500 mg Sodium Chloride 0.9% [Normal Saline] 500 ml IV Q24H 07/21/17 11:15 Sodium Chloride 0.45% 1,000 ml IV ASDIRECTED 07/21/17 12:00 Clindamycin Phosphate [Cleocin] 600 mg Sodium Chloride 0.9% [Normal Saline] 100 ml IV Q12H 07/21/17 13:00 Foot w wo Cont Lt [MR] Routine 07/21/17 16:00 CV Ankle Brachial Index (KHOA) [US] Routine 07/21/17 21:00 Rosuvastatin [Crestor] 5 mg PO BEDTIME 07/22/17 05:00 BMP [BASIC METABOLIC PANEL,BMP] [CHEM] DAILY CBC WITH AUTO DIFF [HEME] DAILY CRP [C-REACTIVE PROTEIN] [CHEM] DAILY LACTIC ACID [CHEM] DAILY MAGNESIUM [CHEM] DAILY 07/22/17 06:00 Levothyroxine [Levothroid] 137 mcg PO DAILY@0600 07/23/17 05:00 BMP [BASIC METABOLIC PANEL,BMP] [CHEM] DAILY CBC WITH AUTO DIFF [HEME] DAILY CRP [C-REACTIVE PROTEIN] [CHEM] DAILY LACTIC ACID [CHEM] DAILY MAGNESIUM [CHEM] DAILY 07/23/17 09:00 Ibuprofen [Motrin] 600 mg PO Q8H PRN metFORMIN [Glucophage] 1,000 mg PO BIDMEALS 07/24/17 05:00 BMP [BASIC METABOLIC PANEL,BMP] [CHEM] DAILY CBC WITH AUTO DIFF [HEME] DAILY CRP [C-REACTIVE PROTEIN] [CHEM] DAILY LACTIC ACID [CHEM] DAILY MAGNESIUM [CHEM] DAILY 07/25/17 05:00 BMP [BASIC METABOLIC PANEL,BMP] [CHEM] DAILY CBC WITH AUTO DIFF [HEME] DAILY CRP [C-REACTIVE PROTEIN] [CHEM] DAILY LACTIC ACID [CHEM] DAILY MAGNESIUM [CHEM] DAILY - Plan Plan:: Impression: LLE diabetic foot ulcer--->MRI inconclusive; nondisplaced navicular bone noted DID NOT USE CONTRAST WITHOUT CONFIRMING CHANGE IN STUDY WITH PRIMARY SERVICE LLE cellulitis Venous doppler is unremarkable for DVT; popliteal cyst noted. History of reportedly PE---REFUSING DVT PROPHYLAXIS; MARKEDLY HIGH RISK WITH PREVIOUS DVT! Diabetes Mellitus type II--REFUSING SLIDING SCALE COVERAGE Morbid obesity-------------------------------------------->>>>>>>>>BMI 50.2 Chronic HLD---REQUIRES FIBRATE, HDL<<<<<<<<<<20! CKD Plan: IVF IV antibiotics Pain management Home meds Daily Labs Gen surg consult PT/OT consult CM consult DVT/GI prophylaxis Weight loss consult with dietary DM consult for review of pathophysiology. DM secondary prevention Elevated LLE as tolerated.
[2017-07-21] MEDS ORDERED: Piperacillin/Tazobactam 4.5 GM in Sodium Chloride 0.9% 100 ML IV ONE (12:00)
--- NOTE | 2017-07-21 13:44 | MR ---
MRI left foot Technique: T1, fat-suppressed inversion recovery sagittal; T2 fat-suppressed and T1-weighted axial; proton, T2 fat-suppressed and T2-weighted coronal images were obtained of the left foot. Findings: Fracture is identified within the lateral side of the navicular bone. This is best noted on the axial and coronal images. Small amount of fluid is identified along the fifth toe. Subcutaneous edema seen along the dorsum of the foot as well as around the ankle. I do not see any definite erosions within the bony structures. No bone marrow edema is seen Impression: 1. Nondisplaced fracture within the lateral aspect of the navicular bone. No significant displacement is seen. 2. Diffuse subcutaneous edema within the dorsum of the foot as well as additional subcutaneous edema around the ankle. Small amount of fluid seen along the fifth toe. 3. No definite findings of osteomyelitis are seen. Study slightly limited for osteomyelitis as contrast could not be administered. Diagnostic code #3
[2017-07-21] MEDS: Clindamycin Phosphate 600 MG in Sodium Chloride 0.9% 100 ML IV SCH ×2 (14:25→23:51)
[2017-07-21] MEDS ORDERED: Piperacillin/Tazobactam 4.5 GM in Sodium Chloride 0.9% 100 ML IV SCH (18:00)
--- NOTE | 2017-07-21 19:13 | PCM.CONSN ---
- Patient Data Vitals - Most Recent: Last Vital Signs Temp 97.7 F 07/21/17 16:11 Pulse 83 07/21/17 16:11 Resp 18 07/21/17 16:11 BP 104/53 L 07/21/17 16:11 Pulse Ox 96 07/21/17 16:11 Weight - Most Recent: 136.758 kg I&O - Last 24 Hours: Intake & Output 07/21/17 07/21/17 07/21/17 07:59 15:59 23:59 Intake Total 1623 720 800 Output Total 1450 Balance 173 720 800 Lab Results Last 24 Hours: Laboratory Results - last 24 hr 07/20/17 07/21/17 07/21/17 Range/Units 20:28 06:22 06:23 WBC (3.98-10.04) K/mm3 RBC (3.98-5.22) M/mm3 Hgb (11.2-15.7) gm/L Hct (34.1-44.9) % MCV (79.4-94.8) fl MCH (25.6-32.2) pg MCHC (32.2-35.5) g/dl RDW Std Deviation (36.4-46.3) fL Plt Count (182-369) K/mm3 MPV (9.4-12.3) fl Sodium (136-145) mEq/L Potassium (3.5-5.1) mEq/L Chloride (98-107) mEq/L Carbon Dioxide (21-32) mEq/L Anion Gap (5-15) BUN (7-18) mg/dL Creatinine (0.55-1.02) mg/dL Est Cr Clr Drug Dosing mL/min Estimated GFR (MDRD) (>60) mL/min BUN/Creatinine Ratio (14-18) Glucose (74-106) mg/dL POC Glucose 214 H 101 (70-105) mg/dL Hemoglobin A1c (4.50-6.20) % Lactic Acid (0.4-2.0) mmol/L Calcium (8.5-10.1) mg/dL C-Reactive Protein (<1.0) mg/dL Triglycerides 228 H (<150) mg/dL Cholesterol 141 (<200) mg/dL LDL Cholesterol Direct 92 (<100) mg/dL HDL Cholesterol 18.0 L (40-59) mg/dL 07/21/17 07/21/17 07/21/17 Range/Units 06:23 06:23 06:23 WBC 10.01 (3.98-10.04) K/mm3 RBC 3.42 L (3.98-5.22) M/mm3 Hgb 10.8 L (11.2-15.7) gm/L Hct 32.4 L (34.1-44.9) % MCV 94.7 (79.4-94.8) fl MCH 31.6 (25.6-32.2) pg MCHC 33.3 (32.2-35.5) g/dl RDW Std Deviation 53.0 H (36.4-46.3) fL Plt Count 155 L (182-369) K/mm3 MPV 11.0 (9.4-12.3) fl Sodium 134 L (136-145) mEq/L Potassium 3.5 (3.5-5.1) mEq/L Chloride 99 (98-107) mEq/L Carbon Dioxide 22 (21-32) mEq/L Anion Gap 16.5 H (5-15) BUN 53 H (7-18) mg/dL Creatinine 1.7 H (0.55-1.02) mg/dL Est Cr Clr Drug Dosing 35.62 mL/min Estimated GFR (MDRD) 32 (>60) mL/min BUN/Creatinine Ratio 31.2 H (14-18) Glucose 86 (74-106) mg/dL POC Glucose (70-105) mg/dL Hemoglobin A1c 7.10 H (4.50-6.20) % Lactic Acid (0.4-2.0) mmol/L Calcium 8.7 (8.5-10.1) mg/dL C-Reactive Protein 34.2 H* (<1.0) mg/dL Triglycerides (<150) mg/dL Cholesterol (<200) mg/dL LDL Cholesterol Direct (<100) mg/dL HDL Cholesterol (40-59) mg/dL 07/21/17 07/21/17 07/21/17 Range/Units 10:15 12:51 17:38 WBC (3.98-10.04) K/mm3 RBC (3.98-5.22) M/mm3 Hgb (11.2-15.7) gm/L Hct (34.1-44.9) % MCV (79.4-94.8) fl MCH (25.6-32.2) pg MCHC (32.2-35.5) g/dl RDW Std Deviation (36.4-46.3) fL Plt Count (182-369) K/mm3 MPV (9.4-12.3) fl Sodium (136-145) mEq/L Potassium (3.5-5.1) mEq/L Chloride (98-107) mEq/L Carbon Dioxide (21-32) mEq/L Anion Gap (5-15) BUN (7-18) mg/dL Creatinine (0.55-1.02) mg/dL Est Cr Clr Drug Dosing mL/min Estimated GFR (MDRD) (>60) mL/min BUN/Creatinine Ratio (14-18) Glucose (74-106) mg/dL POC Glucose 69 L 74 (70-105) mg/dL Hemoglobin A1c (4.50-6.20) % Lactic Acid 1.0 (0.4-2.0) mmol/L Calcium (8.5-10.1) mg/dL C-Reactive Protein (<1.0) mg/dL Triglycerides (<150) mg/dL Cholesterol (<200) mg/dL LDL Cholesterol Direct (<100) mg/dL HDL Cholesterol (40-59) mg/dL Med Orders - Current: Current Medications Aspirin (Ecotrin) 325 mg PO DAILY [facility] Last Admin: 07/21/17 08:54 Dose: Not Given Dextrose/Water (Dextrose 50% In Water) 50 ml IVPUSH ASDIRECTED PRN PRN Reason: Hypoglycemia Gabapentin (Neurontin) 300 mg PO BEDTIME [facility] Last Admin: 07/20/17 20:30 Dose: 300 mg Gemfibrozil (Lopid) 600 mg PO BIDAC [facility] Last Admin: 07/21/17 17:44 Dose: 600 mg Glipizide (Glucotrol Xl) 5 mg PO BID [facility] Last Admin: 07/21/17 08:54 Dose: 5 mg Heparin Sodium (Porcine) (Heparin Sodium) 5,000 units SUBCUT Q8H [facility] Last Admin: 07/21/17 17:44 Dose: Not Given Vancomycin HCl 1 gm/Vancomycin HCl 500 mg/ Sodium Chloride 500 mls @ 333 mls/ hr IV Q24H [facility] Last Admin: 07/21/17 10:31 Dose: 333 mls/hr Clindamycin Phosphate 600 mg/ (Sodium Chloride) 104 mls @ 208 mls/hr IV Q12H [facility] Last Admin: 07/21/17 14:25 Dose: 208 mls/hr Sodium Chloride (Sodium Chloride 0.45%) 1,000 mls @ 150 mls/hr IV ASDIRECTED [facility] Last Admin: 07/21/17 14:25 Dose: 150 mls/hr Ibuprofen (Motrin) 600 mg PO Q8H PRN PRN Reason: Pain Insulin Aspart (Novolog) 0 unit SUBCUT QIDACANDBED [facility] PRN Reason: Protocol Last Admin: 07/21/17 17:44 Dose: Not Given Levothyroxine Sodium (Levothroid) 137 mcg PO DAILY@0600 [facility] Metformin HCl (Glucophage) 1,000 mg PO BIDMEALS [facility] Last Admin: 07/21/17 18:36 Dose: 1,000 mg Rosuvastatin Calcium (Crestor) 5 mg PO BEDTIME [facility] Saccharomyces Boulardii (Florastor) 250 mg PO BID [facility] Last Admin: 07/21/17 10:31 Dose: 250 mg Discontinued Medications Enoxaparin Sodium (Lovenox) 30 mg SUBCUT DAILY [facility] Hydromorphone HCl (Dilaudid) 1 mg IVPUSH ONETIME ONE Stop: 07/20/17 12:34 Last Admin: 07/20/17 12:39 Dose: 1 mg Ampicillin Sodium/Sulbactam (Sodium 3 gm/ Sodium Chloride) 100 mls @ 200 mls/ hr IV ONETIME ONE Stop: 07/20/17 11:13 Last Admin: 07/20/17 12:22 Dose: 200 mls/hr Vancomycin HCl 2 gm/ Sodium (Chloride) 250 mls @ 250 mls/hr IV ONETIME STA Stop: 07/20/17 11:43 Last Admin: 07/20/17 11:02 Dose: 250 mls/hr Sodium Chloride (Sodium Chloride 0.45%) 1,000 mls @ 150 mls/hr IV ASDIRECTED [facility] Stop: 07/21/17 02:01 Last Admin: 07/21/17 00:35 Dose: 150 mls/hr Ampicillin Sodium/Sulbactam (Sodium 3 gm/ Sodium Chloride) 100 mls @ 200 mls/ hr IV Q6H [facility] Last Admin: 07/21/17 06:21 Dose: 200 mls/hr Piperacillin Sod/Tazobactam (Sod 4.5 gm/ Sodium Chloride) 100 mls @ 200 mls/hr IV ONETIME ONE Stop: 07/21/17 12:29 Piperacillin Sod/Tazobactam (Sod 4.5 gm/ Sodium Chloride) 100 mls @ 25 mls/hr IV Q8H [facility] Cefazolin Sodium/Dextrose 2 gm (/ Premix) 50 mls @ 100 mls/hr IV Q8H [facility] Ibuprofen (Motrin) 600 mg PO Q8H PRN PRN Reason: Pain Last Admin: 07/21/17 06:26 Dose: 600 mg Levothyroxine Sodium (Levothroid) 137 mcg PO DAILY@0600 [facility] Last Admin: 07/21/17 07:54 Dose: Not Given Levothyroxine Sodium (Levothyroxine) 0 mcg PO DAILY@0600 [facility] Last Admin: 07/21/17 06:25 Dose: 125 mcg Levothyroxine Sodium (Levothyroxine) 0 mcg PO DAILY@0600 [facility] Levothyroxine Sodium (Levothyroxine) 0 mcg PO DAILY@0600 [facility] Last Admin: 07/21/17 06:25 Dose: 25 mcg Lorazepam (Ativan) 1 mg IVPUSH ONETIME ONE Stop: 07/21/17 11:06 Last Admin: 07/21/17 12:34 Dose: Not Given Metformin HCl (Glucophage) 1,000 mg PO BIDMEALS [facility] Last Admin: 07/21/17 06:26 Dose: 1,000 mg Metformin HCl (Glucophage) 1,000 mg PO BIDMEALS [facility] Vancomycin HCl (Pharmacy To Dose - Vancomycin) 1 dose .XX ASDIRECTED [facility] Consult PN Assessment/Plan Procedures: Procedures CHEST X-RAY 2VW FRONTAL&LATL (01/28/17) ELECTROCARDIOGRAM TRACING (06/19/15) EMERGENCY DEPT VISIT (01/28/17) EMERGENCY DEPT VISIT (07/08/15) FIBRIN DEGRADATION QUANT (01/28/17) METABOLIC PANEL TOTAL CA (01/28/17) MRI NECK SPINE W/O DYE (07/10/15) ROUTINE VENIPUNCTURE (01/28/17) Problem List Initiated/Reviewed/Updated: Yes Plan: surgical consult dictated VERNA
[2017-07-21] MEDS: Rosuvastatin 10 MG Tab PO SCH (20:46)
[2017-07-21] MEDS: Gabapentin 300 MG Cap PO SCH (20:48)
[2017-07-22] MEDS: Heparin Sodium 5,000 Units/ML Vial SUBCUT SCH ×3 (01:07→17:30)
[2017-07-22] MEDS: Gemfibrozil 600 MG Tab PO SCH ×2 (05:59→15:10)
[2017-07-22] MEDS ORDERED: Levothyroxine 25 MCG Tab PO SCH (06:00)
[2017-07-22] MEDS: Insulin Aspart 100 Units/ML 3 ML Pen SUBCUT SCH ×4 (06:01→22:46)
--- NOTE | 2017-07-22 09:48 | PCM.PN ---
- General Info Date of Service: 07/22/17 Admission Dx/Problem (Free Text): Admission Diagnosis/Problem Admission Diagnosis/Problem Cellulitis Subjective Update: Follow Up Functional Status: Reports: Pain Controlled, Tolerating Diet, Urinating. Denies : New Symptoms Pain Score: 7 - Review of Systems General: Denies: Fever, Weakness, Fatigue, Chills, Night Sweats HEENT: Reports: No Symptoms Pulmonary: Denies: Shortness of Breath Cardiovascular: Denies: Chest Pain, Palpitations, Dyspnea on Exertion, Orthopnea , Lightheadedness Gastrointestinal: Reports: Flatus. Denies: Abdominal Pain, Diarrhea, Difficulty Swallowing, Nausea, Vomiting Genitourinary: Reports: No Symptoms Musculoskeletal: Reports: No Symptoms Skin: Reports: Rash. Denies: Cyanosis, Mottled, Pallor, Bruising, Pruritis Neurological: Reports: Gait Disturbance. Denies: Confusion, Trouble Speaking, Weakness Psychiatric: Denies: Mood Lability, Anxiety, Agitation, Cravings, Hallucinations Systems Review Comment:: No overnight or acute issues. She slept okay. She feels about the same. She has been having low blood sugar but asymptomatic. Her blood pressures are also in the hypotension range. She is afebrile with no leukocytosis. She has no new complaints. - Patient Data Vitals - Most Recent: Last Vital Signs Temp 36.7 C 07/22/17 07:44 Pulse 73 07/22/17 07:44 Resp 24 H 07/22/17 07:44 BP 101/41 L 07/22/17 07:44 Pulse Ox 94 L 07/22/17 07:44 Weight - Most Recent: 136.486 kg I&O - Last 24 Hours: Intake & Output 07/21/17 07/22/17 07/22/17 22:59 06:59 14:59 Intake Total 1040 200 Output Total 2800 Balance 1040 -2600 Lab Results Last 24 Hours: Laboratory Results - last 24 hr 07/21/17 07/21/17 07/21/17 Range/Units 06:23 10:15 12:51 WBC (3.98-10.04) K/mm3 RBC (3.98-5.22) M/mm3 Hgb (11.2-15.7) gm/L Hct (34.1-44.9) % MCV (79.4-94.8) fl MCH (25.6-32.2) pg MCHC (32.2-35.5) g/dl RDW Std Deviation (36.4-46.3) fL Plt Count (182-369) K/mm3 MPV (9.4-12.3) fl Neut % (Auto) (34.0-71.1) % Lymph % (Auto) (19.3-51.7) % [place] % (Auto) (4.7-12.5) % Eos % (Auto) (0.7-5.8) Baso % (Auto) (0.1-1.2) % Neut # (Auto) (1.56-6.13) K/mm3 Lymph # (Auto) (1.18-3.74) K/mm3 [place] # (Auto) (0.24-0.36) K/mm3 Eos # (Auto) (0.04-0.36) K/mm3 Baso # (Auto) (0.01-0.08) K/mm3 Sodium 134 L (136-145) mEq/L Potassium 3.5 (3.5-5.1) mEq/L Chloride 99 (98-107) mEq/L Carbon Dioxide 22 (21-32) mEq/L Anion Gap 16.5 H (5-15) BUN 53 H (7-18) mg/dL Creatinine 1.7 H (0.55-1.02) mg/dL Est Cr Clr Drug Dosing 35.62 mL/min Estimated GFR (MDRD) 32 (>60) mL/min BUN/Creatinine Ratio 31.2 H (14-18) Glucose 86 (74-106) mg/dL POC Glucose 69 L (70-105) mg/dL Lactic Acid 1.0 (0.4-2.0) mmol/L Calcium 8.7 (8.5-10.1) mg/dL Magnesium (1.8-2.4) mg/dl C-Reactive Protein 34.2 H* (<1.0) mg/dL 07/21/17 07/21/17 07/22/17 Range/Units 17:38 22:01 04:45 WBC 8.72 (3.98-10.04) K/mm3 RBC 3.29 L (3.98-5.22) M/mm3 Hgb 10.4 L (11.2-15.7) gm/L Hct 31.5 L (34.1-44.9) % MCV 95.7 H (79.4-94.8) fl MCH 31.6 (25.6-32.2) pg MCHC 33.0 (32.2-35.5) g/dl RDW Std Deviation 52.4 H (36.4-46.3) fL Plt Count 149 L (182-369) K/mm3 MPV 11.1 (9.4-12.3) fl Neut % (Auto) 78.0 H (34.0-71.1) % Lymph % (Auto) 12.4 L (19.3-51.7) % [place] % (Auto) 6.7 (4.7-12.5) % Eos % (Auto) 2.3 (0.7-5.8) Baso % (Auto) 0.1 (0.1-1.2) % Neut # (Auto) 6.81 H (1.56-6.13) K/mm3 Lymph # (Auto) 1.08 L (1.18-3.74) K/mm3 [place] # (Auto) 0.58 H (0.24-0.36) K/mm3 Eos # (Auto) 0.20 (0.04-0.36) K/mm3 Baso # (Auto) 0.01 (0.01-0.08) K/mm3 Sodium (136-145) mEq/L Potassium (3.5-5.1) mEq/L Chloride (98-107) mEq/L Carbon Dioxide (21-32) mEq/L Anion Gap (5-15) BUN (7-18) mg/dL Creatinine (0.55-1.02) mg/dL Est Cr Clr Drug Dosing mL/min Estimated GFR (MDRD) (>60) mL/min BUN/Creatinine Ratio (14-18) Glucose (74-106) mg/dL POC Glucose 74 66 L (70-105) mg/dL Lactic Acid (0.4-2.0) mmol/L Calcium (8.5-10.1) mg/dL Magnesium (1.8-2.4) mg/dl C-Reactive Protein (<1.0) mg/dL 07/22/17 07/22/17 07/22/17 Range/Units 04:45 04:45 05:45 WBC (3.98-10.04) K/mm3 RBC (3.98-5.22) M/mm3 Hgb (11.2-15.7) gm/L Hct (34.1-44.9) % MCV (79.4-94.8) fl MCH (25.6-32.2) pg MCHC (32.2-35.5) g/dl RDW Std Deviation (36.4-46.3) fL Plt Count (182-369) K/mm3 MPV (9.4-12.3) fl Neut % (Auto) (34.0-71.1) % Lymph % (Auto) (19.3-51.7) % [place] % (Auto) (4.7-12.5) % Eos % (Auto) (0.7-5.8) Baso % (Auto) (0.1-1.2) % Neut # (Auto) (1.56-6.13) K/mm3 Lymph # (Auto) (1.18-3.74) K/mm3 [place] # (Auto) (0.24-0.36) K/mm3 Eos # (Auto) (0.04-0.36) K/mm3 Baso # (Auto) (0.01-0.08) K/mm3 Sodium 140 (136-145) mEq/L Potassium 4.1 (3.5-5.1) mEq/L Chloride 105 (98-107) mEq/L Carbon Dioxide 23 (21-32) mEq/L Anion Gap 16.1 H (5-15) BUN 49 H (7-18) mg/dL Creatinine 1.6 H (0.55-1.02) mg/dL Est Cr Clr Drug Dosing 37.85 mL/min Estimated GFR (MDRD) 34 (>60) mL/min BUN/Creatinine Ratio 30.6 H (14-18) Glucose 58 L (74-106) mg/dL POC Glucose 62 L (70-105) mg/dL Lactic Acid 0.5 (0.4-2.0) mmol/L Calcium 8.9 (8.5-10.1) mg/dL Magnesium 2.1 (1.8-2.4) mg/dl C-Reactive Protein 23.9 H* (<1.0) mg/dL Med Orders - Current: Current Medications Aspirin (Ecotrin) 325 mg PO DAILY [facility] Last Admin: 07/21/17 08:54 Dose: Not Given Dextrose/Water (Dextrose 50% In Water) 50 ml IVPUSH ASDIRECTED PRN PRN Reason: Hypoglycemia Gabapentin (Neurontin) 300 mg PO BEDTIME [facility] Last Admin: 07/21/17 20:48 Dose: 300 mg Gemfibrozil (Lopid) 600 mg PO BIDAC [facility] Last Admin: 07/22/17 05:59 Dose: 600 mg Glipizide (Glucotrol Xl) 5 mg PO BID [facility] Last Admin: 07/21/17 20:48 Dose: 5 mg Heparin Sodium (Porcine) (Heparin Sodium) 5,000 units SUBCUT Q8H [facility] Last Admin: 07/22/17 01:07 Dose: Not Given Vancomycin HCl 1 gm/Vancomycin HCl 500 mg/ Sodium Chloride 500 mls @ 333 mls/ hr IV Q24H [facility] Last Admin: 07/21/17 10:31 Dose: 333 mls/hr Clindamycin Phosphate 600 mg/ (Sodium Chloride) 104 mls @ 208 mls/hr IV Q12H [facility] Last Admin: 07/21/17 23:51 Dose: 208 mls/hr Ibuprofen (Motrin) 600 mg PO Q8H PRN PRN Reason: Pain Insulin Aspart (Novolog) 0 unit SUBCUT QIDACANDBED [facility] PRN Reason: Protocol Last Admin: 07/22/17 06:01 Dose: Not Given Levothyroxine Sodium (Levothroid) 137 mcg PO DAILY@0600 [facility] Last Admin: 07/22/17 05:59 Dose: 137 mcg Metformin HCl (Glucophage) 1,000 mg PO BIDMEALS [facility] Last Admin: 07/21/17 18:36 Dose: 1,000 mg Rosuvastatin Calcium (Crestor) 5 mg PO BEDTIME [facility] Last Admin: 07/21/17 20:46 Dose: 5 mg Saccharomyces Boulardii (Florastor) 250 mg PO BID [facility] Last Admin: 07/21/17 20:41 Dose: 250 mg Discontinued Medications Enoxaparin Sodium (Lovenox) 30 mg SUBCUT DAILY [facility] Hydromorphone HCl (Dilaudid) 1 mg IVPUSH ONETIME ONE Stop: 07/20/17 12:34 Last Admin: 07/20/17 12:39 Dose: 1 mg Ampicillin Sodium/Sulbactam (Sodium 3 gm/ Sodium Chloride) 100 mls @ 200 mls/ hr IV ONETIME ONE Stop: 07/20/17 11:13 Last Admin: 07/20/17 12:22 Dose: 200 mls/hr Vancomycin HCl 2 gm/ Sodium (Chloride) 250 mls @ 250 mls/hr IV ONETIME STA Stop: 07/20/17 11:43 Last Admin: 07/20/17 11:02 Dose: 250 mls/hr Sodium Chloride (Sodium Chloride 0.45%) 1,000 mls @ 150 mls/hr IV ASDIRECTED [facility] Stop: 07/21/17 02:01 Last Admin: 07/21/17 00:35 Dose: 150 mls/hr Ampicillin Sodium/Sulbactam (Sodium 3 gm/ Sodium Chloride) 100 mls @ 200 mls/ hr IV Q6H [facility] Last Admin: 07/21/17 06:21 Dose: 200 mls/hr Piperacillin Sod/Tazobactam (Sod 4.5 gm/ Sodium Chloride) 100 mls @ 200 mls/hr IV ONETIME ONE Stop: 07/21/17 12:29 Piperacillin Sod/Tazobactam (Sod 4.5 gm/ Sodium Chloride) 100 mls @ 25 mls/hr IV Q8H [facility] Cefazolin Sodium/Dextrose 2 gm (/ Premix) 50 mls @ 100 mls/hr IV Q8H [facility] Sodium Chloride (Sodium Chloride 0.45%) 1,000 mls @ 150 mls/hr IV ASDIRECTED [facility] Last Admin: 07/21/17 14:25 Dose: 150 mls/hr Ibuprofen (Motrin) 600 mg PO Q8H PRN PRN Reason: Pain Last Admin: 07/21/17 06:26 Dose: 600 mg Levothyroxine Sodium (Levothroid) 137 mcg PO DAILY@0600 [facility] Last Admin: 07/21/17 07:54 Dose: Not Given Levothyroxine Sodium (Levothyroxine) 0 mcg PO DAILY@0600 [facility] Last Admin: 07/21/17 06:25 Dose: 125 mcg Levothyroxine Sodium (Levothyroxine) 0 mcg PO DAILY@0600 [facility] Levothyroxine Sodium (Levothyroxine) 0 mcg PO DAILY@0600 [facility] Last Admin: 07/21/17 06:25 Dose: 25 mcg Lorazepam (Ativan) 1 mg IVPUSH ONETIME ONE Stop: 07/21/17 11:06 Last Admin: 07/21/17 12:34 Dose: Not Given Metformin HCl (Glucophage) 1,000 mg PO BIDMEALS [facility] Last Admin: 07/21/17 06:26 Dose: 1,000 mg Metformin HCl (Glucophage) 1,000 mg PO BIDMEALS [facility] Vancomycin HCl (Pharmacy To Dose - Vancomycin) 1 dose .XX ASDIRECTED [facility] - Exam General: Alert, Oriented, Cooperative, No Acute Distress, Other (Morbidly Obese) HEENT: Pupils Equal, Pupils Reactive, EOMI, Mucous Membr. Moist/[place], Other ( poor dendition) Neck: Supple, Trachea Midline, No JVD, No Thyromegaly, +2 Carotid Pulse wo Bruit Lungs: Clear to Auscultation, Normal Respiratory Effort Cardiovascular: Regular Rate, Regular Rhythm GI/Abdominal Exam: Normal Bowel Sounds, Soft, Non-Tender, No Organomegaly, No Distention, No Abnormal Bruit, No Mass (Female) Exam: Deferred Back Exam: Normal Inspection, Decreased Range of Motion Extremities: Normal Range of Motion (right lower extremity and bilateral upper extremity), Pedal Edema, Leg Pain (left lower extremity), Limited Range of Motion (left lower extremity), Increased Warmth, Redness Peripheral Pulses: 1+: Posterior Tibial (L), Dorsalis Pedis (L), 2+: Posterior Tibial (R), Dorsalis Pedis (R) Skin: Warm, Dry, Intact, Rash Neurological: No New Focal Deficit. No: Normal Gait Psy/Mental Status: Alert, Normal Affect, Normal Mood - Problem List Review Problem List Initiated/Reviewed/Updated: Yes - Plan Plan:: Assessment: Acute: LLE Diabetic Cellulitis with Foot Ulcer - Risk Factor: DM2 and Home Hygiene Status - No worsening of leg infection - A1C 7.0 - Currently on IV Vancomycin/Clindamycin; d/c Vancomycin - Continue oral Clindamycin and will resume IV Zosyn (only given once) for pharmacy to dose - Dr. Snowden is following Non-Displaced Left Navicular Fracture - MRI findings - Conservative management - Venous Doppler is unremarkable for DVT; popliteal cyst noted - [facility] - Podiatry eval after discharge Hypoglycemia - BS: 62-74 range - Asymptomatic - On ISS and Glipizide 5 mg po BIP - Metformin on hold due to renal function Hypotension - She is not on BP Meds - Possible relatively hypotension; isolated case - She is not on any BP meds; Home HCTZ is currently on hold - Will continue to monitor Chronic: HLD on Fibrate and Statin CKD Stage 3 History of Reportedly PE---> REFUSING DVT PROPHYLAXIS; MARKEDLY HIGH RISK WITH PREVIOUS DVT! Morbid obesity with BMI of 50.2 Plan: She is otherwise clinically stable Continue current treatment Routine Daily Labs Gen Surg consult PT/OT consult CM/SW for d/c planning DVT/GI prophylaxis Weight loss consult with dietary Elevate LLE as tolerated Additional orders as above Code status: 1
[2017-07-22] MEDS: glipiZIDE 5 MG Tab.ER PO SCH ×2 (10:08→20:39)
[2017-07-22] MEDS: Saccharomyces Boulardii (Probiotic) 250 MG Cap PO SCH ×2 (10:08→20:38)
[2017-07-22] MEDS: Vancomycin 1500 MG in Sodium Chloride 0.9% 500 ML IV SCH ×3 (10:10)
[2017-07-22] MEDS: Aspirin 325 MG Tab.EC PO SCH (10:10)
--- NOTE | 2017-07-22 10:17 | CONS ---
CONSULTING PHYSICIAN: Travon Snowden MD DATE OF CONSULTATION: 07/21/2017 HISTORY OF PRESENT ILLNESS: This is a 52-year-old who last 3 days developed swelling and redness, pain and there is right leg swelling extending up to the around the knee. She is diabetic and has not really followed her blood sugars, which have been running about 180. She is on metformin. She has some ulcers in the lower extremities. Denies any problems with neuropathy. She does report PE some 20 years ago, but ultrasound at the moment is negative for pulmonary the emboli. The patient has been admitted to the hospital for cellulitis. Consultation was obtained. The patient does have a history of cholecystectomy and she does smoke. REVIEW OF SYSTEMS: No chest pain or shortness of breath, cough, hoarseness, wheezing, fainting, weakness, numbness, convulsions. Denies any weakness, neurological symptoms, but does have pain. FAMILY HISTORY: Negative for family medical problems. MEDICATIONS: Per medication reconciliation form and reviewed. PAST MEDICAL HISTORY: DVT, cholelithiasis, status post removal of the gallbladder, diabetes type 2. PHYSICAL EXAMINATION: GENERAL: Exam shows alert, cooperative female. VITAL SIGNS: Temperature 36, pulse 88, blood pressure 91/54. EYES: Sclerae white extraocular muscle motion normal. Oral cavity healthy mucous membrane with mouth tongue. NECK: Supple. No nodes. LUNGS: Clear. No rales, rhonchi, fremitus, dullness heart tones regular rate. ABDOMEN: Soft. EXTREMITIES: Upper extremities, no angulation deformities. Lower extremities show right leg normal size. No tenderness with dry skin flaking with some ulcerations over the extensor surface of the metacarpal joint. The left leg shows edema and swelling and redness very painful even to slight touch. Some dry ulcers over the top of the feet. NEUROLOGIC: III through XII intact. PSYCHIATRIC: Normal. No sensorineural deficit. Oriented x4. ASSESSMENT: Cellulitis. RECOMMENDATION: Elevation, IV fluids. Calcium is normal. PLAN: Agree with your present treatment. MMODAL /[id number]
[2017-07-22] MEDS: Clindamycin Phosphate 600 MG in Sodium Chloride 0.9% 100 ML IV SCH (13:52)
[2017-07-22] MEDS ORDERED: Piperacillin/Tazobactam 4.5 GM in Sodium Chloride 0.9% 100 ML IV ONE (20:15)
[2017-07-22] MEDS ORDERED: Piperacillin/Tazobactam 4.5 GM in Sodium Chloride 0.9% 100 ML IV SCH (20:15)
[2017-07-22] MEDS: Rosuvastatin 10 MG Tab PO SCH (20:39)
[2017-07-22] MEDS: Gabapentin 300 MG Cap PO SCH (20:39)
[2017-07-23] MEDS: Clindamycin Phosphate 600 MG in Sodium Chloride 0.9% 100 ML IV SCH ×2 (00:08→11:13)
[2017-07-23] MEDS: Heparin Sodium 5,000 Units/ML Vial SUBCUT SCH ×3 (03:40→17:54)
[2017-07-23] MEDS: Piperacillin/Tazobactam 4.5 GM in Sodium Chloride 0.9% 100 ML IV SCH ×3 (04:10→20:58)
[2017-07-23] MEDS: Gemfibrozil 600 MG Tab PO SCH ×2 (06:25→16:18)
[2017-07-23] MEDS: Insulin Aspart 100 Units/ML 3 ML Pen SUBCUT SCH ×4 (06:27→21:03)
[2017-07-23] MEDS: glipiZIDE 5 MG Tab.ER PO SCH ×2 (08:37→21:01)
[2017-07-23] MEDS: Aspirin 325 MG Tab.EC PO SCH (08:37)
[2017-07-23] MEDS: Saccharomyces Boulardii (Probiotic) 250 MG Cap PO SCH ×2 (08:38→21:02)
[2017-07-23] MEDS ORDERED: metFORMIN 500 MG Tab PO SCH (09:00)
--- NOTE | 2017-07-23 09:27 | PCM.PN ---
- General Info Date of Service: 07/23/17 Admission Dx/Problem (Free Text): Admission Diagnosis/Problem Admission Diagnosis/Problem Cellulitis Subjective Update: Follow Up Functional Status: Reports: Pain Controlled, Tolerating Diet, Urinating - Review of Systems General: Denies: Fever, Weakness, Fatigue, Malaise, Chills HEENT: Denies: Contact Lenses Pulmonary: Denies: Shortness of Breath Cardiovascular: Reports: Edema. Denies: Chest Pain Gastrointestinal: Denies: Abdominal Pain, Diarrhea, Vomiting Genitourinary: Reports: No Symptoms Musculoskeletal: Reports: No Symptoms Skin: Reports: Rash. Denies: Mottled, Pallor, Diaphoresis Neurological: Reports: Gait Disturbance. Denies: Confusion, Difficulty Walking , Weakness Psychiatric: Denies: Depression, Anxiety, Agitation, Hallucinations Systems Review Comment:: No overnight or acute issues. She is doing relatively well. She has no new complaints. - Patient Data Vitals - Most Recent: Last Vital Signs Temp 36.1 C 07/23/17 07:43 Pulse 70 07/23/17 07:43 Resp 22 H 07/23/17 07:43 BP 138/66 07/23/17 07:43 Pulse Ox 96 07/23/17 07:43 Weight - Most Recent: 135.261 kg I&O - Last 24 Hours: Intake & Output 07/22/17 07/23/17 07/23/17 22:59 06:59 14:59 Intake Total 1900 900 Output Total 1800 1650 Balance 100 -750 Lab Results Last 24 Hours: Laboratory Results - last 24 hr 07/22/17 07/22/17 07/22/17 Range/Units 10:57 17:11 21:48 WBC (3.98-10.04) K/mm3 RBC (3.98-5.22) M/mm3 Hgb (11.2-15.7) gm/L Hct (34.1-44.9) % MCV (79.4-94.8) fl MCH (25.6-32.2) pg MCHC (32.2-35.5) g/dl RDW Std Deviation (36.4-46.3) fL Plt Count (182-369) K/mm3 MPV (9.4-12.3) fl Neut % (Auto) (34.0-71.1) % Lymph % (Auto) (19.3-51.7) % [place] % (Auto) (4.7-12.5) % Eos % (Auto) (0.7-5.8) Baso % (Auto) (0.1-1.2) % Neut # (Auto) (1.56-6.13) K/mm3 Lymph # (Auto) (1.18-3.74) K/mm3 [place] # (Auto) (0.24-0.36) K/mm3 Eos # (Auto) (0.04-0.36) K/mm3 Baso # (Auto) (0.01-0.08) K/mm3 Sodium (136-145) mEq/L Potassium (3.5-5.1) mEq/L Chloride (98-107) mEq/L Carbon Dioxide (21-32) mEq/L Anion Gap (5-15) BUN (7-18) mg/dL Creatinine (0.55-1.02) mg/dL Est Cr Clr Drug Dosing mL/min Estimated GFR (MDRD) (>60) mL/min BUN/Creatinine Ratio (14-18) Glucose (74-106) mg/dL POC Glucose 134 H 171 H 183 H (70-105) mg/dL Lactic Acid (0.4-2.0) mmol/L Calcium (8.5-10.1) mg/dL Magnesium (1.8-2.4) mg/dl C-Reactive Protein (<1.0) mg/dL 07/23/17 07/23/17 07/23/17 Range/Units 06:03 06:20 06:20 WBC 9.50 (3.98-10.04) K/mm3 RBC 3.51 L (3.98-5.22) M/mm3 Hgb 11.0 L (11.2-15.7) gm/L Hct 34.0 L (34.1-44.9) % MCV 96.9 H (79.4-94.8) fl MCH 31.3 (25.6-32.2) pg MCHC 32.4 (32.2-35.5) g/dl RDW Std Deviation 53.0 H (36.4-46.3) fL Plt Count 196 (182-369) K/mm3 MPV 11.1 (9.4-12.3) fl Neut % (Auto) 75.1 H (34.0-71.1) % Lymph % (Auto) 12.2 L (19.3-51.7) % [place] % (Auto) 7.8 (4.7-12.5) % Eos % (Auto) 3.6 (0.7-5.8) Baso % (Auto) 0.2 (0.1-1.2) % Neut # (Auto) 7.14 H (1.56-6.13) K/mm3 Lymph # (Auto) 1.16 L (1.18-3.74) K/mm3 [place] # (Auto) 0.74 H (0.24-0.36) K/mm3 Eos # (Auto) 0.34 (0.04-0.36) K/mm3 Baso # (Auto) 0.02 (0.01-0.08) K/mm3 Sodium 141 (136-145) mEq/L Potassium 4.1 (3.5-5.1) mEq/L Chloride 105 (98-107) mEq/L Carbon Dioxide 24 (21-32) mEq/L Anion Gap 16.1 H (5-15) BUN 32 H (7-18) mg/dL Creatinine 1.4 H (0.55-1.02) mg/dL Est Cr Clr Drug Dosing 43.26 mL/min Estimated GFR (MDRD) 40 (>60) mL/min BUN/Creatinine Ratio 22.9 H (14-18) Glucose 162 H (74-106) mg/dL POC Glucose 158 H (70-105) mg/dL Lactic Acid (0.4-2.0) mmol/L Calcium 9.5 (8.5-10.1) mg/dL Magnesium 2.1 (1.8-2.4) mg/dl C-Reactive Protein 15.9 H* (<1.0) mg/dL 07/23/17 Range/Units 06:20 WBC (3.98-10.04) K/mm3 RBC (3.98-5.22) M/mm3 Hgb (11.2-15.7) gm/L Hct (34.1-44.9) % MCV (79.4-94.8) fl MCH (25.6-32.2) pg MCHC (32.2-35.5) g/dl RDW Std Deviation (36.4-46.3) fL Plt Count (182-369) K/mm3 MPV (9.4-12.3) fl Neut % (Auto) (34.0-71.1) % Lymph % (Auto) (19.3-51.7) % [place] % (Auto) (4.7-12.5) % Eos % (Auto) (0.7-5.8) Baso % (Auto) (0.1-1.2) % Neut # (Auto) (1.56-6.13) K/mm3 Lymph # (Auto) (1.18-3.74) K/mm3 [place] # (Auto) (0.24-0.36) K/mm3 Eos # (Auto) (0.04-0.36) K/mm3 Baso # (Auto) (0.01-0.08) K/mm3 Sodium (136-145) mEq/L Potassium (3.5-5.1) mEq/L Chloride (98-107) mEq/L Carbon Dioxide (21-32) mEq/L Anion Gap (5-15) BUN (7-18) mg/dL Creatinine (0.55-1.02) mg/dL Est Cr Clr Drug Dosing mL/min Estimated GFR (MDRD) (>60) mL/min BUN/Creatinine Ratio (14-18) Glucose (74-106) mg/dL POC Glucose (70-105) mg/dL Lactic Acid 0.7 (0.4-2.0) mmol/L Calcium (8.5-10.1) mg/dL Magnesium (1.8-2.4) mg/dl C-Reactive Protein (<1.0) mg/dL Med Orders - Current: Current Medications Aspirin (Ecotrin) 325 mg PO DAILY [facility] Last Admin: 07/23/17 08:37 Dose: 325 mg Dextrose/Water (Dextrose 50% In Water) 50 ml IVPUSH ASDIRECTED PRN PRN Reason: Hypoglycemia Gabapentin (Neurontin) 300 mg PO BEDTIME [facility] Last Admin: 07/22/17 20:39 Dose: 300 mg Gemfibrozil (Lopid) 600 mg PO BIDAC [facility] Last Admin: 07/23/17 06:25 Dose: 600 mg Glipizide (Glucotrol Xl) 5 mg PO BID [facility] Last Admin: 07/23/17 08:37 Dose: 5 mg Heparin Sodium (Porcine) (Heparin Sodium) 5,000 units SUBCUT Q8H [facility] Last Admin: 07/23/17 09:18 Dose: Not Given Clindamycin Phosphate 600 mg/ (Sodium Chloride) 104 mls @ 208 mls/hr IV Q12H [facility] Last Admin: 07/23/17 00:08 Dose: 208 mls/hr Piperacillin Sod/Tazobactam (Sod 4.5 gm/ Sodium Chloride) 100 mls @ 25 mls/hr IV Q8H [facility] Last Admin: 07/23/17 04:10 Dose: 25 mls/hr Ibuprofen (Motrin) 600 mg PO Q8H PRN PRN Reason: Pain Insulin Aspart (Novolog) 0 unit SUBCUT QIDACANDBED [facility] PRN Reason: Protocol Last Admin: 07/23/17 06:27 Dose: Not Given Levothyroxine Sodium (Levothroid) 137 mcg PO DAILY@0600 [facility] Last Admin: 07/23/17 06:25 Dose: 137 mcg Metformin HCl (Glucophage) 1,000 mg PO BIDMEALS [facility] Last Admin: 07/21/17 18:36 Dose: 1,000 mg Rosuvastatin Calcium (Crestor) 5 mg PO BEDTIME [facility] Last Admin: 07/22/17 20:39 Dose: 5 mg Saccharomyces Boulardii (Florastor) 250 mg PO BID [facility] Last Admin: 07/23/17 08:38 Dose: 250 mg Discontinued Medications Enoxaparin Sodium (Lovenox) 30 mg SUBCUT DAILY [facility] Hydromorphone HCl (Dilaudid) 1 mg IVPUSH ONETIME ONE Stop: 07/20/17 12:34 Last Admin: 07/20/17 12:39 Dose: 1 mg Ampicillin Sodium/Sulbactam (Sodium 3 gm/ Sodium Chloride) 100 mls @ 200 mls/ hr IV ONETIME ONE Stop: 07/20/17 11:13 Last Admin: 07/20/17 12:22 Dose: 200 mls/hr Vancomycin HCl 2 gm/ Sodium (Chloride) 250 mls @ 250 mls/hr IV ONETIME STA Stop: 07/20/17 11:43 Last Admin: 07/20/17 11:02 Dose: 250 mls/hr Sodium Chloride (Sodium Chloride 0.45%) 1,000 mls @ 150 mls/hr IV ASDIRECTED [facility] Stop: 07/21/17 02:01 Last Admin: 07/21/17 00:35 Dose: 150 mls/hr Ampicillin Sodium/Sulbactam (Sodium 3 gm/ Sodium Chloride) 100 mls @ 200 mls/ hr IV Q6H [facility] Last Admin: 07/21/17 06:21 Dose: 200 mls/hr Vancomycin HCl 1 gm/Vancomycin HCl 500 mg/ Sodium Chloride 500 mls @ 333 mls/ hr IV Q24H [facility] Last Admin: 07/22/17 10:10 Dose: 333 mls/hr Piperacillin Sod/Tazobactam (Sod 4.5 gm/ Sodium Chloride) 100 mls @ 200 mls/hr IV ONETIME ONE Stop: 07/21/17 12:29 Piperacillin Sod/Tazobactam (Sod 4.5 gm/ Sodium Chloride) 100 mls @ 25 mls/hr IV Q8H [facility] Cefazolin Sodium/Dextrose 2 gm (/ Premix) 50 mls @ 100 mls/hr IV Q8H [facility] Sodium Chloride (Sodium Chloride 0.45%) 1,000 mls @ 150 mls/hr IV ASDIRECTED [facility] Last Admin: 07/21/17 14:25 Dose: 150 mls/hr Piperacillin Sod/Tazobactam (Sod 4.5 gm/ Sodium Chloride) 100 mls @ 33.333 mls/ hr IV Q6H [facility] Piperacillin Sod/Tazobactam (Sod 4.5 gm/ Sodium Chloride) 100 mls @ 200 mls/hr IV ONETIME ONE Stop: 07/22/17 20:44 Last Admin: 07/22/17 20:36 Dose: 200 mls/hr Ibuprofen (Motrin) 600 mg PO Q8H PRN PRN Reason: Pain Last Admin: 07/21/17 06:26 Dose: 600 mg Levothyroxine Sodium (Levothroid) 137 mcg PO DAILY@0600 [facility] Last Admin: 07/21/17 07:54 Dose: Not Given Levothyroxine Sodium (Levothyroxine) 0 mcg PO DAILY@0600 [facility] Last Admin: 07/21/17 06:25 Dose: 125 mcg Levothyroxine Sodium (Levothyroxine) 0 mcg PO DAILY@0600 [facility] Levothyroxine Sodium (Levothyroxine) 0 mcg PO DAILY@0600 [facility] Last Admin: 07/21/17 06:25 Dose: 25 mcg Lorazepam (Ativan) 1 mg IVPUSH ONETIME ONE Stop: 07/21/17 11:06 Last Admin: 07/21/17 12:34 Dose: Not Given Metformin HCl (Glucophage) 1,000 mg PO BIDMEALS [facility] Last Admin: 07/21/17 06:26 Dose: 1,000 mg Metformin HCl (Glucophage) 1,000 mg PO BIDMEALS [facility] Vancomycin HCl (Pharmacy To Dose - Vancomycin) 1 dose .XX ASDIRECTED [facility] - Exam General: Alert, Oriented, Cooperative, No Acute Distress, Other (Morbidly Obese) HEENT: Pupils Equal, Pupils Reactive, EOMI, Mucous Membr. Moist/[place] Neck: Supple, Trachea Midline, No JVD, Other (short and thick) Lungs: Clear to Auscultation, Normal Respiratory Effort, Decreased Breath Sounds Cardiovascular: Regular Rate, Regular Rhythm GI/Abdominal Exam: Normal Bowel Sounds, Soft, Non-Tender, No Organomegaly, No Distention, No Abnormal Bruit, No Mass, Other (Obese) (Female) Exam: Deferred Back Exam: Normal Inspection, Decreased Range of Motion Extremities: Pedal Edema, Leg Pain, Increased Warmth, Other (cellulitis: improving erythema and edema). No: Normal Range of Motion, Normal Capillary Refill, Mottled Peripheral Pulses: 1+: Posterior Tibial (L), Dorsalis Pedis (L), 2+: Posterior Tibial (R), Dorsalis Pedis (R) Skin: Warm, Dry, Intact Wound/Incisions: No Drainage, Erythema Improving Neurological: No New Focal Deficit. No: Normal Gait Psy/Mental Status: Alert, Normal Affect, Normal Mood - Problem List Review Problem List Initiated/Reviewed/Updated: Yes - My Orders Last 24 Hours: My Active Orders 07/22/17 12:44 Blood Culture x2 Reflex Set [OM.PC] Stat 07/22/17 13:05 CULTURE BLOOD [BC] Stat 07/22/17 13:20 CULTURE BLOOD [BC] Stat 07/23/17 04:00 Piperacillin/Tazobactam [Zosyn] 4.5 gm Sodium Chloride 0.9% [Normal Saline] 100 ml IV Q8H - Plan Plan:: Assessment: Acute: LLE Diabetic Cellulitis with Foot Ulcer, Improving - Risk Factor: DM2 and Home Hygiene Status - No worsening of leg infection - A1C 7.0 - Currently on IV Vancomycin/Clindamycin; d/c Vancomycin - Continue oral Clindamycin and will resume IV Zosyn (only given once) for pharmacy to dose - Dr. Snowden is following Non-Displaced Left Navicular Fracture, Stable - MRI findings - Conservative management - Venous Doppler is unremarkable for DVT; popliteal cyst noted - Foot cool consult ([facility]) - Podiatry eval after discharge Resolved: Hypoglycemia - BS: 62-74 range - Asymptomatic - On ISS and Glipizide 5 mg po BIP - Metformin on hold due to renal function Hypotension - She is not on BP Meds - Possible relatively hypotension; isolated case - She is not on any BP meds; Home HCTZ is currently on hold - Will continue to monitor Chronic: HLD on Fibrate and Statin CKD Stage 3 History of Reportedly PE---> REFUSING DVT PROPHYLAXIS; MARKEDLY HIGH RISK WITH PREVIOUS DVT! Morbid obesity with BMI of 50.2 Plan: She remains clinically stable Continue current treatment Routine Daily Labs Gen Surg following Continue PT/OT CM/SW for d/c planning DVT/GI prophylaxis Weight loss consult with dietary Elevate LLE as tolerated Additional orders as above Code status: 1 Consider [facility] for further rehab LOS anticipate > 96hrs due to slow response to treatment.
[2017-07-23] MEDS: metFORMIN 500 MG Tab PO SCH (16:18)
[2017-07-23] MEDS: Gabapentin 300 MG Cap PO SCH (21:01)
[2017-07-23] MEDS: Rosuvastatin 10 MG Tab PO SCH (21:02)
[2017-07-24] MEDS: Clindamycin Phosphate 600 MG in Sodium Chloride 0.9% 100 ML IV SCH ×2 (00:12→12:23)
[2017-07-24] MEDS: Heparin Sodium 5,000 Units/ML Vial SUBCUT SCH ×3 (00:59→20:34)
[2017-07-24] MEDS: Piperacillin/Tazobactam 4.5 GM in Sodium Chloride 0.9% 100 ML IV SCH ×3 (03:36→20:26)
[2017-07-24] MEDS: metFORMIN 500 MG Tab PO SCH ×2 (06:27→20:35)
[2017-07-24] MEDS: Gemfibrozil 600 MG Tab PO SCH ×2 (06:27→20:35)
[2017-07-24] MEDS: Ibuprofen 600 MG Tab PO PRN ×2 (06:31→20:34)
[2017-07-24] MEDS: Insulin Aspart 100 Units/ML 3 ML Pen SUBCUT SCH ×4 (06:32→23:08)
[2017-07-24] MEDS: Saccharomyces Boulardii (Probiotic) 250 MG Cap PO SCH ×2 (10:19→20:38)
[2017-07-24] MEDS: glipiZIDE 5 MG Tab.ER PO SCH ×2 (10:19→20:28)
[2017-07-24] MEDS: Aspirin 325 MG Tab.EC PO SCH (10:19)
--- NOTE | 2017-07-24 14:55 | PCM.PN ---
- General Info Date of Service: 07/24/17 Admission Dx/Problem (Free Text): Admission Diagnosis/Problem Admission Diagnosis/Problem Cellulitis Subjective Update: Follow Up Functional Status: Reports: Pain Controlled, Tolerating Diet, Ambulating, Urinating. Denies: New Symptoms - Review of Systems General: Denies: Fever, Weakness, Fatigue, Malaise, Chills HEENT: Reports: No Symptoms Pulmonary: Denies: Shortness of Breath Cardiovascular: Reports: Edema. Denies: Chest Pain Gastrointestinal: Denies: Abdominal Pain, Nausea, Vomiting Genitourinary: Reports: No Symptoms Musculoskeletal: Reports: No Symptoms Skin: Reports: Rash. Denies: Cyanosis, Jaundice, Mottled, Pallor, Diaphoresis, Pruritis Neurological: Denies: Confusion, Difficulty Walking, Weakness, Gait Disturbance Psychiatric: Denies: Depression, Anxiety, Agitation, Hallucinations Systems Review Comment:: No overnight or acute issues. She is relatively well. She slept pretty good and reports no new complaints. - Patient Data Vitals - Most Recent: Last Vital Signs Temp 36.4 C 07/24/17 11:25 Pulse 64 07/24/17 11:25 Resp 20 07/24/17 11:25 BP 132/89 07/24/17 11:25 Pulse Ox 92 L 07/24/17 11:25 Weight - Most Recent: 136.305 kg I&O - Last 24 Hours: Intake & Output 07/23/17 07/24/17 07/24/17 22:59 06:59 14:59 Intake Total 1840 1500 240 Output Total 750 Balance 1090 1500 240 Lab Results Last 24 Hours: Laboratory Results - last 24 hr 07/23/17 07/23/17 07/24/17 Range/Units 16:16 21:31 06:10 WBC 9.16 (3.98-10.04) K/mm3 RBC 3.42 L (3.98-5.22) M/mm3 Hgb 10.8 L (11.2-15.7) gm/L Hct 33.2 L (34.1-44.9) % MCV 97.1 H (79.4-94.8) fl MCH 31.6 (25.6-32.2) pg MCHC 32.5 (32.2-35.5) g/dl RDW Std Deviation 53.0 H (36.4-46.3) fL Plt Count 228 (182-369) K/mm3 MPV 11.3 (9.4-12.3) fl Neut % (Auto) 69.9 (34.0-71.1) % Lymph % (Auto) 15.4 L (19.3-51.7) % [place] % (Auto) 7.1 (4.7-12.5) % Eos % (Auto) 5.0 (0.7-5.8) Baso % (Auto) 0.4 (0.1-1.2) % Neut # (Auto) 6.40 H (1.56-6.13) K/mm3 Lymph # (Auto) 1.41 (1.18-3.74) K/mm3 [place] # (Auto) 0.65 H (0.24-0.36) K/mm3 Eos # (Auto) 0.46 H (0.04-0.36) K/mm3 Baso # (Auto) 0.04 (0.01-0.08) K/mm3 Manual Slide Review Abnormal smear Sodium (136-145) mEq/L Potassium (3.5-5.1) mEq/L Chloride (98-107) mEq/L Carbon Dioxide (21-32) mEq/L Anion Gap (5-15) BUN (7-18) mg/dL Creatinine (0.55-1.02) mg/dL Est Cr Clr Drug Dosing mL/min Estimated GFR (MDRD) (>60) mL/min BUN/Creatinine Ratio (14-18) Glucose (74-106) mg/dL POC Glucose 195 H 164 H (70-105) mg/dL Lactic Acid (0.4-2.0) mmol/L Calcium (8.5-10.1) mg/dL Magnesium (1.8-2.4) mg/dl C-Reactive Protein (<1.0) mg/dL 07/24/17 07/24/17 07/24/17 Range/Units 06:10 06:10 06:53 WBC (3.98-10.04) K/mm3 RBC (3.98-5.22) M/mm3 Hgb (11.2-15.7) gm/L Hct (34.1-44.9) % MCV (79.4-94.8) fl MCH (25.6-32.2) pg MCHC (32.2-35.5) g/dl RDW Std Deviation (36.4-46.3) fL Plt Count (182-369) K/mm3 MPV (9.4-12.3) fl Neut % (Auto) (34.0-71.1) % Lymph % (Auto) (19.3-51.7) % [place] % (Auto) (4.7-12.5) % Eos % (Auto) (0.7-5.8) Baso % (Auto) (0.1-1.2) % Neut # (Auto) (1.56-6.13) K/mm3 Lymph # (Auto) (1.18-3.74) K/mm3 [place] # (Auto) (0.24-0.36) K/mm3 Eos # (Auto) (0.04-0.36) K/mm3 Baso # (Auto) (0.01-0.08) K/mm3 Manual Slide Review Sodium 140 (136-145) mEq/L Potassium 4.3 (3.5-5.1) mEq/L Chloride 106 (98-107) mEq/L Carbon Dioxide 24 (21-32) mEq/L Anion Gap 14.3 (5-15) BUN 25 H (7-18) mg/dL Creatinine 1.3 H (0.55-1.02) mg/dL Est Cr Clr Drug Dosing 46.59 mL/min Estimated GFR (MDRD) 43 (>60) mL/min BUN/Creatinine Ratio 19.2 H (14-18) Glucose 183 H (74-106) mg/dL POC Glucose 174 H (70-105) mg/dL Lactic Acid 0.7 (0.4-2.0) mmol/L Calcium 9.1 (8.5-10.1) mg/dL Magnesium 1.9 (1.8-2.4) mg/dl C-Reactive Protein 11.5 H* (<1.0) mg/dL 07/24/17 Range/Units 10:30 WBC (3.98-10.04) K/mm3 RBC (3.98-5.22) M/mm3 Hgb (11.2-15.7) gm/L Hct (34.1-44.9) % MCV (79.4-94.8) fl MCH (25.6-32.2) pg MCHC (32.2-35.5) g/dl RDW Std Deviation (36.4-46.3) fL Plt Count (182-369) K/mm3 MPV (9.4-12.3) fl Neut % (Auto) (34.0-71.1) % Lymph % (Auto) (19.3-51.7) % [place] % (Auto) (4.7-12.5) % Eos % (Auto) (0.7-5.8) Baso % (Auto) (0.1-1.2) % Neut # (Auto) (1.56-6.13) K/mm3 Lymph # (Auto) (1.18-3.74) K/mm3 [place] # (Auto) (0.24-0.36) K/mm3 Eos # (Auto) (0.04-0.36) K/mm3 Baso # (Auto) (0.01-0.08) K/mm3 Manual Slide Review Sodium (136-145) mEq/L Potassium (3.5-5.1) mEq/L Chloride (98-107) mEq/L Carbon Dioxide (21-32) mEq/L Anion Gap (5-15) BUN (7-18) mg/dL Creatinine (0.55-1.02) mg/dL Est Cr Clr Drug Dosing mL/min Estimated GFR (MDRD) (>60) mL/min BUN/Creatinine Ratio (14-18) Glucose (74-106) mg/dL POC Glucose 180 H (70-105) mg/dL Lactic Acid (0.4-2.0) mmol/L Calcium (8.5-10.1) mg/dL Magnesium (1.8-2.4) mg/dl C-Reactive Protein (<1.0) mg/dL [place] Results Last 24 Hours: Microbiology 07/22/17 13:20 Aerobic Blood Culture - Preliminary Blood - Venous - Lab Draw NO GROWTH AFTER 2 DAYS Anaerobic Blood Culture - Preliminary NO GROWTH AFTER 2 DAYS 07/22/17 13:05 Aerobic Blood Culture - Preliminary Blood - Venous NO GROWTH AFTER 2 DAYS Anaerobic Blood Culture - Preliminary NO GROWTH AFTER 2 DAYS Med Orders - Current: Current Medications Aspirin (Ecotrin) 325 mg PO DAILY [facility] Last Admin: 07/24/17 10:19 Dose: 325 mg Dextrose/Water (Dextrose 50% In Water) 50 ml IVPUSH ASDIRECTED PRN PRN Reason: Hypoglycemia Gabapentin (Neurontin) 300 mg PO BEDTIME [facility] Last Admin: 07/23/17 21:01 Dose: 300 mg Gemfibrozil (Lopid) 600 mg PO BIDAC [facility] Last Admin: 07/24/17 06:27 Dose: 600 mg Glipizide (Glucotrol Xl) 5 mg PO BID [facility] Last Admin: 07/24/17 10:19 Dose: 5 mg Heparin Sodium (Porcine) (Heparin Sodium) 5,000 units SUBCUT Q8H [facility] Last Admin: 07/24/17 14:23 Dose: Not Given Clindamycin Phosphate 600 mg/ (Sodium Chloride) 104 mls @ 208 mls/hr IV Q12H [facility] Last Admin: 07/24/17 12:23 Dose: 208 mls/hr Piperacillin Sod/Tazobactam (Sod 4.5 gm/ Sodium Chloride) 100 mls @ 25 mls/hr IV Q8H [facility] Last Admin: 07/24/17 12:23 Dose: 25 mls/hr Ibuprofen (Motrin) 600 mg PO Q8H PRN PRN Reason: Pain Last Admin: 07/24/17 06:31 Dose: 600 mg Insulin Aspart (Novolog) 0 unit SUBCUT QIDACANDBED [facility] PRN Reason: Protocol Last Admin: 07/24/17 14:22 Dose: Not Given Levothyroxine Sodium (Levothroid) 137 mcg PO DAILY@0600 [facility] Last Admin: 07/24/17 06:27 Dose: 137 mcg Metformin HCl (Glucophage) 1,000 mg PO BIDMEALS [facility] Last Admin: 07/24/17 06:27 Dose: 1,000 mg Rosuvastatin Calcium (Crestor) 5 mg PO BEDTIME [facility] Last Admin: 07/23/17 21:02 Dose: 5 mg Saccharomyces Boulardii (Florastor) 250 mg PO BID [facility] Last Admin: 07/24/17 10:19 Dose: 250 mg Discontinued Medications Enoxaparin Sodium (Lovenox) 30 mg SUBCUT DAILY [facility] Hydromorphone HCl (Dilaudid) 1 mg IVPUSH ONETIME ONE Stop: 07/20/17 12:34 Last Admin: 07/20/17 12:39 Dose: 1 mg Ampicillin Sodium/Sulbactam (Sodium 3 gm/ Sodium Chloride) 100 mls @ 200 mls/ hr IV ONETIME ONE Stop: 07/20/17 11:13 Last Admin: 07/20/17 12:22 Dose: 200 mls/hr Vancomycin HCl 2 gm/ Sodium (Chloride) 250 mls @ 250 mls/hr IV ONETIME [facility] Stop: 07/20/17 11:43 Last Admin: 07/20/17 11:02 Dose: 250 mls/hr Sodium Chloride (Sodium Chloride 0.45%) 1,000 mls @ 150 mls/hr IV ASDIRECTED [facility] Stop: 07/21/17 02:01 Last Admin: 07/21/17 00:35 Dose: 150 mls/hr Ampicillin Sodium/Sulbactam (Sodium 3 gm/ Sodium Chloride) 100 mls @ 200 mls/ hr IV Q6H [facility] Last Admin: 07/21/17 06:21 Dose: 200 mls/hr Vancomycin HCl 1 gm/Vancomycin HCl 500 mg/ Sodium Chloride 500 mls @ 333 mls/ hr IV Q24H [facility] Last Admin: 07/22/17 10:10 Dose: 333 mls/hr Piperacillin Sod/Tazobactam (Sod 4.5 gm/ Sodium Chloride) 100 mls @ 200 mls/hr IV ONETIME ONE Stop: 07/21/17 12:29 Piperacillin Sod/Tazobactam (Sod 4.5 gm/ Sodium Chloride) 100 mls @ 25 mls/hr IV Q8H [facility] Cefazolin Sodium/Dextrose 2 gm (/ Premix) 50 mls @ 100 mls/hr IV Q8H [facility] Sodium Chloride (Sodium Chloride 0.45%) 1,000 mls @ 150 mls/hr IV ASDIRECTED [facility] Last Admin: 07/21/17 14:25 Dose: 150 mls/hr Piperacillin Sod/Tazobactam (Sod 4.5 gm/ Sodium Chloride) 100 mls @ 33.333 mls/ hr IV Q6H [facility] Piperacillin Sod/Tazobactam (Sod 4.5 gm/ Sodium Chloride) 100 mls @ 200 mls/hr IV ONETIME ONE Stop: 07/22/17 20:44 Last Admin: 07/22/17 20:36 Dose: 200 mls/hr Ibuprofen (Motrin) 600 mg PO Q8H PRN PRN Reason: Pain Last Admin: 07/21/17 06:26 Dose: 600 mg Levothyroxine Sodium (Levothroid) 137 mcg PO DAILY@0600 [facility] Last Admin: 07/21/17 07:54 Dose: Not Given Levothyroxine Sodium (Levothyroxine) 0 mcg PO DAILY@0600 [facility] Last Admin: 07/21/17 06:25 Dose: 125 mcg Levothyroxine Sodium (Levothyroxine) 0 mcg PO DAILY@0600 [facility] Levothyroxine Sodium (Levothyroxine) 0 mcg PO DAILY@0600 [facility] Last Admin: 07/21/17 06:25 Dose: 25 mcg Lorazepam (Ativan) 1 mg IVPUSH ONETIME ONE Stop: 07/21/17 11:06 Last Admin: 07/21/17 12:34 Dose: Not Given Metformin HCl (Glucophage) 1,000 mg PO BIDMEALS [facility] Last Admin: 07/21/17 06:26 Dose: 1,000 mg Metformin HCl (Glucophage) 1,000 mg PO BIDMEALS [facility] Vancomycin HCl (Pharmacy To Dose - Vancomycin) 1 dose .XX ASDIRECTED [facility] - Exam General: Alert, Oriented, Cooperative, No Acute Distress, Other (Morbidly Obese) HEENT: Pupils Equal, Pupils Reactive, EOMI, Mucous Membr. Moist/[place] Neck: Supple, Trachea Midline, No JVD Lungs: Clear to Auscultation, Normal Respiratory Effort Cardiovascular: Regular Rate, Regular Rhythm GI/Abdominal Exam: Normal Bowel Sounds, Soft, Non-Tender, No Organomegaly, No Distention, No Abnormal Bruit, No Mass (Female) Exam: Deferred Back Exam: Normal Inspection, Decreased Range of Motion Extremities: Normal Inspection, Normal Range of Motion, Non-Tender, No Pedal Edema, Normal Capillary Refill Peripheral Pulses: 2+: Dorsalis Pedis (L), Dorsalis Pedis (R) Skin: Warm, Dry, Intact Neurological: No New Focal Deficit Psy/Mental Status: Alert, Normal Affect, Normal Mood - Problem List Review Problem List Initiated/Reviewed/Updated: Yes - Plan Plan:: Assessment: Acute: LLE Diabetic Cellulitis with Foot Ulcer, Continue Improves - Risk Factor: DM2 and Home Hygiene Status - No worsening of leg infection - A1C 7.0 - Continue Clindamycin and IV Zosyn for pharmacy to dose - Dr. Snowden is following Non-Displaced Left Navicular Fracture, Stable - MRI findings - Conservative management - Venous Doppler is unremarkable for DVT; popliteal cyst noted - Foot cool consult ([facility]) - Podiatry eval after discharge Resolved: Hypoglycemia - BS: 62-74 range - Asymptomatic - On ISS and Glipizide 5 mg po BIP - Metformin on hold due to renal function Hypotension - She is not on BP Meds - Possible relatively hypotension; isolated case - She is not on any BP meds; Home HCTZ is currently on hold - Will continue to monitor Chronic: HLD on Fibrate and Statin CKD Stage 3 History of Reportedly PE---> REFUSING DVT PROPHYLAXIS; MARKEDLY HIGH RISK WITH PREVIOUS DVT! Morbid obesity with BMI of 50.2 Plan: She is essentially the same Continue current treatment Routine Daily Labs Gen Surg following Continue PT/OT CM/SW for d/c planning DVT/GI prophylaxis Additional orders as above Code status: 1 Consider [facility] or SNF/NH for continuation of IV Abx treatment LOS > 96hrs due pending placement
[2017-07-24] MEDS: Rosuvastatin 10 MG Tab PO SCH (20:28)
[2017-07-24] MEDS: Gabapentin 300 MG Cap PO SCH (20:28)
[2017-07-25] MEDS: Clindamycin Phosphate 600 MG in Sodium Chloride 0.9% 100 ML IV SCH ×3 (00:14→23:55)
[2017-07-25] MEDS: Heparin Sodium 5,000 Units/ML Vial SUBCUT SCH ×3 (04:35→18:00)
[2017-07-25] MEDS: Piperacillin/Tazobactam 4.5 GM in Sodium Chloride 0.9% 100 ML IV SCH ×3 (04:41→22:14)
[2017-07-25] MEDS: metFORMIN 500 MG Tab PO SCH ×2 (06:57→16:38)
[2017-07-25] MEDS: Gemfibrozil 600 MG Tab PO SCH ×2 (06:58→16:38)
--- NOTE | 2017-07-25 08:23 | PCM.PN ---
- General Info Date of Service: 07/25/17 Admission Dx/Problem (Free Text): Admission Diagnosis/Problem Admission Diagnosis/Problem Cellulitis Subjective Update: Follow Up Functional Status: Reports: Pain Controlled, Tolerating Diet, Ambulating, Urinating. Denies: New Symptoms - Review of Systems General: Denies: Fever, Weakness, Fatigue, Malaise, Chills HEENT: Reports: No Symptoms Pulmonary: Denies: Shortness of Breath Cardiovascular: Reports: Edema. Denies: Chest Pain, Dyspnea on Exertion Gastrointestinal: Denies: Abdominal Pain, Diarrhea, Difficulty Swallowing, Nausea Genitourinary: Reports: No Symptoms Musculoskeletal: Reports: No Symptoms Skin: Reports: Rash Neurological: Denies: Confusion, Difficulty Walking, Weakness, Gait Disturbance Psychiatric: Denies: Depression, Anxiety, Agitation, Hallucinations Systems Review Comment:: No overnight or acute issues. She remains relatively well. No new complaints. - Patient Data Vitals - Most Recent: Last Vital Signs Temp 36.7 C 07/25/17 02:22 Pulse 63 07/25/17 02:22 Resp 16 07/25/17 02:22 BP 105/64 07/25/17 02:22 Pulse Ox 99 07/25/17 02:22 Weight - Most Recent: 137.484 kg I&O - Last 24 Hours: Intake & Output 07/24/17 07/25/17 07/25/17 22:59 06:59 14:59 Intake Total 1920 1250 Balance 1920 1250 Lab Results Last 24 Hours: Laboratory Results - last 24 hr 07/24/17 07/24/17 07/25/17 Range/Units 10:30 16:50 06:12 WBC 8.75 (3.98-10.04) K/mm3 RBC 3.47 L (3.98-5.22) M/mm3 Hgb 10.9 L (11.2-15.7) gm/L Hct 34.0 L (34.1-44.9) % MCV 98.0 H (79.4-94.8) fl MCH 31.4 (25.6-32.2) pg MCHC 32.1 L (32.2-35.5) g/dl RDW Std Deviation 55.0 H (36.4-46.3) fL Plt Count 285 (182-369) K/mm3 MPV 11.0 (9.4-12.3) fl Neut % (Auto) 64.9 (34.0-71.1) % Lymph % (Auto) 18.5 L (19.3-51.7) % Douglas % (Auto) 7.1 (4.7-12.5) % Eos % (Auto) 5.3 (0.7-5.8) Baso % (Auto) 0.3 (0.1-1.2) % Neut # (Auto) 5.68 (1.56-6.13) K/mm3 Lymph # (Auto) 1.62 (1.18-3.74) K/mm3 Douglas # (Auto) 0.62 H (0.24-0.36) K/mm3 Eos # (Auto) 0.46 H (0.04-0.36) K/mm3 Baso # (Auto) 0.03 (0.01-0.08) K/mm3 Manual Slide Review Abnormal smear Sodium (136-145) mEq/L Potassium (3.5-5.1) mEq/L Chloride (98-107) mEq/L Carbon Dioxide (21-32) mEq/L Anion Gap (5-15) BUN (7-18) mg/dL Creatinine (0.55-1.02) mg/dL Est Cr Clr Drug Dosing mL/min Estimated GFR (MDRD) (>60) mL/min BUN/Creatinine Ratio (14-18) Glucose (74-106) mg/dL POC Glucose 180 H 232 H (70-105) mg/dL Lactic Acid (0.4-2.0) mmol/L Calcium (8.5-10.1) mg/dL Magnesium (1.8-2.4) mg/dl C-Reactive Protein (<1.0) mg/dL 07/25/17 07/25/17 07/25/17 Range/Units 06:12 06:12 07:10 WBC (3.98-10.04) K/mm3 RBC (3.98-5.22) M/mm3 Hgb (11.2-15.7) gm/L Hct (34.1-44.9) % MCV (79.4-94.8) fl MCH (25.6-32.2) pg MCHC (32.2-35.5) g/dl RDW Std Deviation (36.4-46.3) fL Plt Count (182-369) K/mm3 MPV (9.4-12.3) fl Neut % (Auto) (34.0-71.1) % Lymph % (Auto) (19.3-51.7) % Douglas % (Auto) (4.7-12.5) % Eos % (Auto) (0.7-5.8) Baso % (Auto) (0.1-1.2) % Neut # (Auto) (1.56-6.13) K/mm3 Lymph # (Auto) (1.18-3.74) K/mm3 Douglas # (Auto) (0.24-0.36) K/mm3 Eos # (Auto) (0.04-0.36) K/mm3 Baso # (Auto) (0.01-0.08) K/mm3 Manual Slide Review Sodium 142 (136-145) mEq/L Potassium 4.3 (3.5-5.1) mEq/L Chloride 108 H (98-107) mEq/L Carbon Dioxide 24 (21-32) mEq/L Anion Gap 14.3 (5-15) BUN 24 H (7-18) mg/dL Creatinine 1.3 H (0.55-1.02) mg/dL Est Cr Clr Drug Dosing 46.59 mL/min Estimated GFR (MDRD) 43 (>60) mL/min BUN/Creatinine Ratio 18.5 H (14-18) Glucose 139 H (74-106) mg/dL POC Glucose 138 H (70-105) mg/dL Lactic Acid 0.5 (0.4-2.0) mmol/L Calcium 9.1 (8.5-10.1) mg/dL Magnesium 1.8 (1.8-2.4) mg/dl C-Reactive Protein 7.9 H* (<1.0) mg/dL Frandy Results Last 24 Hours: Microbiology 07/22/17 13:20 Aerobic Blood Culture - Preliminary Blood - Venous - Lab Draw NO GROWTH AFTER 2 DAYS Anaerobic Blood Culture - Preliminary NO GROWTH AFTER 2 DAYS 07/22/17 13:05 Aerobic Blood Culture - Preliminary Blood - Venous NO GROWTH AFTER 2 DAYS Anaerobic Blood Culture - Preliminary NO GROWTH AFTER 2 DAYS Med Orders - Current: Current Medications Aspirin (Ecotrin) 325 mg PO DAILY [facility] Last Admin: 07/24/17 10:19 Dose: 325 mg Dextrose/Water (Dextrose 50% In Water) 50 ml IVPUSH ASDIRECTED PRN PRN Reason: Hypoglycemia Gabapentin (Neurontin) 300 mg PO BEDTIME [facility] Last Admin: 07/24/17 20:28 Dose: 300 mg Gemfibrozil (Lopid) 600 mg PO BIDAC [facility] Last Admin: 07/25/17 06:58 Dose: 600 mg Glipizide (Glucotrol Xl) 5 mg PO BID [facility] Last Admin: 07/24/17 20:28 Dose: 5 mg Heparin Sodium (Porcine) (Heparin Sodium) 5,000 units SUBCUT Q8H [facility] Last Admin: 07/25/17 04:35 Dose: Not Given Clindamycin Phosphate 600 mg/ (Sodium Chloride) 104 mls @ 208 mls/hr IV Q12H [facility] Last Admin: 07/25/17 00:14 Dose: 208 mls/hr Piperacillin Sod/Tazobactam (Sod 4.5 gm/ Sodium Chloride) 100 mls @ 25 mls/hr IV Q8H [facility] Last Admin: 07/25/17 04:41 Dose: 25 mls/hr Ibuprofen (Motrin) 600 mg PO Q8H PRN PRN Reason: Pain Last Admin: 07/24/17 20:34 Dose: 600 mg Insulin Aspart (Novolog) 0 unit SUBCUT QIDACANDBED [facility] PRN Reason: Protocol Last Admin: 07/24/17 23:08 Dose: Not Given Levothyroxine Sodium (Levothroid) 137 mcg PO DAILY@0600 [facility] Last Admin: 07/25/17 06:57 Dose: 137 mcg Metformin HCl (Glucophage) 1,000 mg PO BIDMEALS [facility] Last Admin: 07/25/17 06:57 Dose: 1,000 mg Rosuvastatin Calcium (Crestor) 5 mg PO BEDTIME [facility] Last Admin: 07/24/17 20:28 Dose: 5 mg Saccharomyces Boulardii (Florastor) 250 mg PO BID [facility] Last Admin: 07/24/17 20:38 Dose: 250 mg Discontinued Medications Enoxaparin Sodium (Lovenox) 30 mg SUBCUT DAILY [facility] Hydromorphone HCl (Dilaudid) 1 mg IVPUSH ONETIME ONE Stop: 07/20/17 12:34 Last Admin: 07/20/17 12:39 Dose: 1 mg Ampicillin Sodium/Sulbactam (Sodium 3 gm/ Sodium Chloride) 100 mls @ 200 mls/ hr IV ONETIME ONE Stop: 07/20/17 11:13 Last Admin: 07/20/17 12:22 Dose: 200 mls/hr Vancomycin HCl 2 gm/ Sodium (Chloride) 250 mls @ 250 mls/hr IV ONETIME STA Stop: 07/20/17 11:43 Last Admin: 07/20/17 11:02 Dose: 250 mls/hr Sodium Chloride (Sodium Chloride 0.45%) 1,000 mls @ 150 mls/hr IV ASDIRECTED [facility] Stop: 07/21/17 02:01 Last Admin: 07/21/17 00:35 Dose: 150 mls/hr Ampicillin Sodium/Sulbactam (Sodium 3 gm/ Sodium Chloride) 100 mls @ 200 mls/ hr IV Q6H [facility] Last Admin: 07/21/17 06:21 Dose: 200 mls/hr Vancomycin HCl 1 gm/Vancomycin HCl 500 mg/ Sodium Chloride 500 mls @ 333 mls/ hr IV Q24H [facility] Last Admin: 07/22/17 10:10 Dose: 333 mls/hr Piperacillin Sod/Tazobactam (Sod 4.5 gm/ Sodium Chloride) 100 mls @ 200 mls/hr IV ONETIME ONE Stop: 07/21/17 12:29 Piperacillin Sod/Tazobactam (Sod 4.5 gm/ Sodium Chloride) 100 mls @ 25 mls/hr IV Q8H [facility] Cefazolin Sodium/Dextrose 2 gm (/ Premix) 50 mls @ 100 mls/hr IV Q8H [facility] Sodium Chloride (Sodium Chloride 0.45%) 1,000 mls @ 150 mls/hr IV ASDIRECTED [facility] Last Admin: 07/21/17 14:25 Dose: 150 mls/hr Piperacillin Sod/Tazobactam (Sod 4.5 gm/ Sodium Chloride) 100 mls @ 33.333 mls/ hr IV Q6H [facility] Piperacillin Sod/Tazobactam (Sod 4.5 gm/ Sodium Chloride) 100 mls @ 200 mls/hr IV ONETIME ONE Stop: 07/22/17 20:44 Last Admin: 07/22/17 20:36 Dose: 200 mls/hr Ibuprofen (Motrin) 600 mg PO Q8H PRN PRN Reason: Pain Last Admin: 07/21/17 06:26 Dose: 600 mg Levothyroxine Sodium (Levothroid) 137 mcg PO DAILY@0600 [facility] Last Admin: 07/21/17 07:54 Dose: Not Given Levothyroxine Sodium (Levothyroxine) 0 mcg PO DAILY@0600 [facility] Last Admin: 07/21/17 06:25 Dose: 125 mcg Levothyroxine Sodium (Levothyroxine) 0 mcg PO DAILY@0600 [facility] Levothyroxine Sodium (Levothyroxine) 0 mcg PO DAILY@0600 [facility] Last Admin: 07/21/17 06:25 Dose: 25 mcg Lorazepam (Ativan) 1 mg IVPUSH ONETIME ONE Stop: 07/21/17 11:06 Last Admin: 07/21/17 12:34 Dose: Not Given Metformin HCl (Glucophage) 1,000 mg PO BIDMEALS [facility] Last Admin: 07/21/17 06:26 Dose: 1,000 mg Metformin HCl (Glucophage) 1,000 mg PO BIDMEALS [facility] Vancomycin HCl (Pharmacy To Dose - Vancomycin) 1 dose .XX ASDIRECTED [facility] - Exam General: Alert, Oriented, Cooperative, No Acute Distress, Other (Morbdily Obese) HEENT: Pupils Equal, Pupils Reactive, EOMI, Mucous Membr. Moist/[place] Neck: Supple, Trachea Midline, No JVD, Other (short and thick) Lungs: Clear to Auscultation, Normal Respiratory Effort Cardiovascular: Regular Rate, Regular Rhythm GI/Abdominal Exam: Normal Bowel Sounds, Soft, Non-Tender, No Organomegaly, No Distention, No Abnormal Bruit, Other (Obese) (Female) Exam: Deferred Back Exam: Normal Inspection, Decreased Range of Motion Extremities: Non-Tender, Pedal Edema, Limited Range of Motion, Redness. No: Amparo's Sign Peripheral Pulses: 2+: Dorsalis Pedis (L), Dorsalis Pedis (R) Skin: Warm, Dry, Intact Neurological: No New Focal Deficit Psy/Mental Status: Alert, Normal Affect, Normal Mood - Problem List Review Problem List Initiated/Reviewed/Updated: Yes - Plan Plan:: Assessment: Acute: LLE Diabetic Cellulitis with Foot Ulcer, Continue Improves - Risk Factor: DM2 and Home Hygiene Status - No worsening of leg infection - A1C 7.0 - Continue Clindamycin and IV Zosyn for pharmacy to dose 5th day - Dr. Snowden is following Non-Displaced Left Navicular Fracture, Stable - MRI findings - Conservative management - Venous Doppler is unremarkable for DVT; popliteal cyst noted - [facility] - Podiatry eval after discharge Medical Non-compliance - She continues to refuse Lovenox SubQ and ISS Resolved: Hypoglycemia - BS: 62-74 range - Asymptomatic - On ISS and Glipizide 5 mg po BIP - Metformin on hold due to renal function Hypotension - She is not on BP Meds - Possible relatively hypotension; isolated case - She is not on any BP meds; Home HCTZ is currently on hold - Will continue to monitor Chronic: HLD on Fibrate and Statin CKD Stage 3 History of Reportedly PE---> REFUSING DVT PROPHYLAXIS; MARKEDLY HIGH RISK WITH PREVIOUS DVT! Morbid obesity with BMI of 50.2 Plan: No change in her current clinical stable status Continue current treatment Routine Daily Labs Gen Surg following Continue PT/OT CM/SW for d/c planning DVT: has been refusing lovenox subQ; SCDs CI due to cellulitis GI prophylaxis Additional orders as above Code status: 1 D/c pending placement
[2017-07-25] MEDS: Insulin Aspart 100 Units/ML 3 ML Pen SUBCUT SCH ×4 (08:52→22:17)
[2017-07-25] MEDS: Saccharomyces Boulardii (Probiotic) 250 MG Cap PO SCH ×2 (08:59→22:15)
[2017-07-25] MEDS: Aspirin 325 MG Tab.EC PO SCH (08:59)
[2017-07-25] MEDS: glipiZIDE 5 MG Tab.ER PO SCH ×2 (08:59→22:16)
[2017-07-25] MEDS: Rosuvastatin 10 MG Tab PO SCH (22:15)
[2017-07-25] MEDS: Gabapentin 300 MG Cap PO SCH (22:16)
[2017-07-26] MEDS: Heparin Sodium 5,000 Units/ML Vial SUBCUT SCH ×3 (04:10→17:34)
[2017-07-26] MEDS: Piperacillin/Tazobactam 4.5 GM in Sodium Chloride 0.9% 100 ML IV SCH ×3 (05:25→20:28)
[2017-07-26] MEDS: Gemfibrozil 600 MG Tab PO SCH ×2 (05:25→17:28)
[2017-07-26] MEDS: metFORMIN 500 MG Tab PO SCH ×2 (06:49→17:28)
[2017-07-26] MEDS: Insulin Aspart 100 Units/ML 3 ML Pen SUBCUT SCH ×4 (06:49→22:45)
--- NOTE | 2017-07-26 07:00 | PCM.PN ---
- General Info Date of Service: 07/26/17 Admission Dx/Problem (Free Text): Admission Diagnosis/Problem Admission Diagnosis/Problem Cellulitis Subjective Update: Follow Up Functional Status: Reports: Pain Controlled, Tolerating Diet, Ambulating, Urinating. Denies: New Symptoms - Review of Systems General: Denies: Fever, Weakness, Fatigue, Malaise, Chills HEENT: Reports: No Symptoms Pulmonary: Denies: Shortness of Breath Cardiovascular: Denies: Chest Pain Gastrointestinal: Denies: Abdominal Pain, Nausea, Vomiting Genitourinary: Reports: No Symptoms Musculoskeletal: Reports: No Symptoms Skin: Reports: Rash Neurological: Denies: Confusion, Difficulty Walking, Weakness, Gait Disturbance Psychiatric: Denies: Depression, Mood Lability, Anxiety, Agitation Systems Review Comment:: No overnight or acute issues. She remains relatively well. She reports no new complaints. - Patient Data Vitals - Most Recent: Last Vital Signs Temp 36.9 C 07/26/17 02:50 Pulse 73 07/26/17 02:50 Resp 19 07/26/17 02:50 BP 110/61 07/26/17 02:50 Pulse Ox 98 07/26/17 02:50 Weight - Most Recent: 135.443 kg I&O - Last 24 Hours: Intake & Output 07/25/17 07/26/17 07/26/17 22:59 06:59 14:59 Intake Total 3340 1200 Balance 3340 1200 Lab Results Last 24 Hours: Laboratory Results - last 24 hr 07/25/17 07/25/17 07/25/17 Range/Units 06:12 06:12 07:10 Manual Slide Review Abnormal smear POC Glucose 138 H (70-105) mg/dL Lactic Acid 0.5 (0.4-2.0) mmol/L 07/25/17 07/25/17 07/25/17 Range/Units 11:56 18:06 21:06 Manual Slide Review POC Glucose 178 H 160 H 159 H (70-105) mg/dL Lactic Acid (0.4-2.0) mmol/L 07/26/17 Range/Units 06:15 Manual Slide Review POC Glucose 152 H (70-105) mg/dL Lactic Acid (0.4-2.0) mmol/L Frandy Results Last 24 Hours: Microbiology 07/22/17 13:20 Aerobic Blood Culture - Preliminary Blood - Venous - Lab Draw NO GROWTH AFTER 3 DAYS Anaerobic Blood Culture - Preliminary NO GROWTH AFTER 3 DAYS 07/22/17 13:05 Aerobic Blood Culture - Preliminary Blood - Venous NO GROWTH AFTER 3 DAYS Anaerobic Blood Culture - Preliminary NO GROWTH AFTER 3 DAYS Med Orders - Current: Current Medications Aspirin (Ecotrin) 325 mg PO DAILY [facility] Last Admin: 07/25/17 08:59 Dose: 325 mg Dextrose/Water (Dextrose 50% In Water) 50 ml IVPUSH ASDIRECTED PRN PRN Reason: Hypoglycemia Gabapentin (Neurontin) 300 mg PO BEDTIME [facility] Last Admin: 07/25/17 22:16 Dose: 300 mg Gemfibrozil (Lopid) 600 mg PO BIDAC [facility] Last Admin: 07/26/17 05:25 Dose: 600 mg Glipizide (Glucotrol Xl) 5 mg PO BID [facility] Last Admin: 07/25/17 22:16 Dose: 5 mg Heparin Sodium (Porcine) (Heparin Sodium) 5,000 units SUBCUT Q8H [facility] Last Admin: 07/26/17 04:10 Dose: Not Given Clindamycin Phosphate 600 mg/ (Sodium Chloride) 104 mls @ 208 mls/hr IV Q12H [facility] Last Admin: 07/25/17 23:55 Dose: 208 mls/hr Piperacillin Sod/Tazobactam (Sod 4.5 gm/ Sodium Chloride) 100 mls @ 25 mls/hr IV Q8H [facility] Last Admin: 07/26/17 05:25 Dose: 25 mls/hr Ibuprofen (Motrin) 600 mg PO Q8H PRN PRN Reason: Pain Last Admin: 07/24/17 20:34 Dose: 600 mg Insulin Aspart (Novolog) 0 unit SUBCUT QIDACANDBED [facility] PRN Reason: Protocol Last Admin: 07/26/17 06:49 Dose: Not Given Levothyroxine Sodium (Levothroid) 137 mcg PO DAILY@0600 [facility] Last Admin: 07/26/17 05:25 Dose: 137 mcg Metformin HCl (Glucophage) 1,000 mg PO BIDMEALS [facility] Last Admin: 07/26/17 06:49 Dose: 1,000 mg Rosuvastatin Calcium (Crestor) 5 mg PO BEDTIME [facility] Last Admin: 07/25/17 22:15 Dose: 5 mg Saccharomyces Boulardii (Florastor) 250 mg PO BID [facility] Last Admin: 07/25/17 22:15 Dose: 250 mg Discontinued Medications Enoxaparin Sodium (Lovenox) 30 mg SUBCUT DAILY [facility] Hydromorphone HCl (Dilaudid) 1 mg IVPUSH ONETIME ONE Stop: 07/20/17 12:34 Last Admin: 07/20/17 12:39 Dose: 1 mg Ampicillin Sodium/Sulbactam (Sodium 3 gm/ Sodium Chloride) 100 mls @ 200 mls/ hr IV ONETIME ONE Stop: 07/20/17 11:13 Last Admin: 07/20/17 12:22 Dose: 200 mls/hr Vancomycin HCl 2 gm/ Sodium (Chloride) 250 mls @ 250 mls/hr IV ONETIME STA Stop: 07/20/17 11:43 Last Admin: 07/20/17 11:02 Dose: 250 mls/hr Sodium Chloride (Sodium Chloride 0.45%) 1,000 mls @ 150 mls/hr IV ASDIRECTED [facility] Stop: 07/21/17 02:01 Last Admin: 07/21/17 00:35 Dose: 150 mls/hr Ampicillin Sodium/Sulbactam (Sodium 3 gm/ Sodium Chloride) 100 mls @ 200 mls/ hr IV Q6H [facility] Last Admin: 07/21/17 06:21 Dose: 200 mls/hr Vancomycin HCl 1 gm/Vancomycin HCl 500 mg/ Sodium Chloride 500 mls @ 333 mls/ hr IV Q24H [facility] Last Admin: 07/22/17 10:10 Dose: 333 mls/hr Piperacillin Sod/Tazobactam (Sod 4.5 gm/ Sodium Chloride) 100 mls @ 200 mls/hr IV ONETIME ONE Stop: 07/21/17 12:29 Piperacillin Sod/Tazobactam (Sod 4.5 gm/ Sodium Chloride) 100 mls @ 25 mls/hr IV Q8H [facility] Cefazolin Sodium/Dextrose 2 gm (/ Premix) 50 mls @ 100 mls/hr IV Q8H [facility] Sodium Chloride (Sodium Chloride 0.45%) 1,000 mls @ 150 mls/hr IV ASDIRECTED [facility] Last Admin: 07/21/17 14:25 Dose: 150 mls/hr Piperacillin Sod/Tazobactam (Sod 4.5 gm/ Sodium Chloride) 100 mls @ 33.333 mls/ hr IV Q6H [facility] Piperacillin Sod/Tazobactam (Sod 4.5 gm/ Sodium Chloride) 100 mls @ 200 mls/hr IV ONETIME ONE Stop: 07/22/17 20:44 Last Admin: 07/22/17 20:36 Dose: 200 mls/hr Ibuprofen (Motrin) 600 mg PO Q8H PRN PRN Reason: Pain Last Admin: 07/21/17 06:26 Dose: 600 mg Levothyroxine Sodium (Levothroid) 137 mcg PO DAILY@0600 [facility] Last Admin: 07/21/17 07:54 Dose: Not Given Levothyroxine Sodium (Levothyroxine) 0 mcg PO DAILY@0600 [facility] Last Admin: 07/21/17 06:25 Dose: 125 mcg Levothyroxine Sodium (Levothyroxine) 0 mcg PO DAILY@0600 [facility] Levothyroxine Sodium (Levothyroxine) 0 mcg PO DAILY@0600 [facility] Last Admin: 07/21/17 06:25 Dose: 25 mcg Lorazepam (Ativan) 1 mg IVPUSH ONETIME ONE Stop: 07/21/17 11:06 Last Admin: 07/21/17 12:34 Dose: Not Given Metformin HCl (Glucophage) 1,000 mg PO BIDMEALS [facility] Last Admin: 07/21/17 06:26 Dose: 1,000 mg Metformin HCl (Glucophage) 1,000 mg PO BIDMEALS [facility] Vancomycin HCl (Pharmacy To Dose - Vancomycin) 1 dose .XX ASDIRECTED [facility] - Exam General: Alert, Oriented, Cooperative, No Acute Distress, Other (Morbidly Obese) HEENT: Pupils Equal, Pupils Reactive, EOMI, Mucous Membr. Moist/[place], Other ( left neck: palpable mass) Neck: Supple, Trachea Midline Lungs: Clear to Auscultation, Normal Respiratory Effort Cardiovascular: Regular Rate, Regular Rhythm GI/Abdominal Exam: Normal Bowel Sounds, Soft, Non-Tender, No Organomegaly, No Distention, No Abnormal Bruit, No Mass, Other (Obese) (Female) Exam: Deferred Back Exam: Normal Inspection, Decreased Range of Motion Extremities: Normal Range of Motion, No Pedal Edema, Normal Capillary Refill, Redness, Other (left lower extremity erythema and edema improving). No: Leg Pain, Increased Warmth Peripheral Pulses: 1+: Dorsalis Pedis (L), Dorsalis Pedis (R) Skin: Warm, Dry, Intact, Rash Wound/Incisions: No Drainage, Erythema Improving Neurological: No New Focal Deficit Psy/Mental Status: Alert, Normal Affect, Normal Mood - Problem List Review Problem List Initiated/Reviewed/Updated: Yes - Plan Plan:: Assessment: Acute: LLE Diabetic Cellulitis with Foot Ulcer, Continue Improves - Risk Factor: DM2 and Home Hygiene Status - No worsening of leg infection - A1C 7.0 - Continue Clindamycin and IV Zosyn for pharmacy to dose 5th day - Dr. Snowden is following Non-Displaced Left Navicular Fracture, Stable - MRI findings - Conservative management - Venous Doppler is unremarkable for DVT; popliteal cyst noted - Foot cool consult ([facility]) - Podiatry eval after discharge Medical Non-compliance - She continues to refuse Lovenox SubQ and ISS Resolved: Hypoglycemia - BS: 62-74 range - Asymptomatic - On ISS and Glipizide 5 mg po BIP - Metformin on hold due to renal function Hypotension - She is not on BP Meds - Possible relatively hypotension; isolated case - She is not on any BP meds; Home HCTZ is currently on hold - Will continue to monitor Chronic: HLD on Fibrate and Statin CKD Stage 3 History of Reportedly PE---> REFUSING DVT PROPHYLAXIS; MARKEDLY HIGH RISK WITH PREVIOUS DVT! Morbid obesity with BMI of 50.2 Plan: No change in her current clinical stable status Continue current treatment Routine Daily Labs CM/SW for d/c planning DVT: has been refusing lovenox subQ; SCDs CI due to cellulitis GI prophylaxis Encourage to ambulate down the [place] as tolerated Additional orders as above Code status: 1 D/c pending placement
[2017-07-26] MEDS: Aspirin 325 MG Tab.EC PO SCH (08:33)
[2017-07-26] MEDS: glipiZIDE 5 MG Tab.ER PO SCH ×2 (08:33→20:29)
[2017-07-26] MEDS: Saccharomyces Boulardii (Probiotic) 250 MG Cap PO SCH ×2 (08:33→20:28)
[2017-07-26] MEDS: Clindamycin Phosphate 600 MG in Sodium Chloride 0.9% 100 ML IV SCH (11:05)
[2017-07-26] MEDS: Rosuvastatin 10 MG Tab PO SCH (20:28)
[2017-07-26] MEDS: Gabapentin 300 MG Cap PO SCH (20:29)
[2017-07-27] MEDS: Clindamycin Phosphate 600 MG in Sodium Chloride 0.9% 100 ML IV SCH ×2 (00:45→11:20)
[2017-07-27] MEDS: Heparin Sodium 5,000 Units/ML Vial SUBCUT SCH ×3 (02:42→17:50)
[2017-07-27] MEDS: Piperacillin/Tazobactam 4.5 GM in Sodium Chloride 0.9% 100 ML IV SCH ×3 (04:40→20:30)
[2017-07-27] MEDS: metFORMIN 500 MG Tab PO SCH ×2 (06:09→16:59)
[2017-07-27] MEDS: Gemfibrozil 600 MG Tab PO SCH ×2 (06:09→17:00)
--- NOTE | 2017-07-27 06:34 | PCM.PN ---
- General Info Date of Service: 07/27/17 Admission Dx/Problem (Free Text): Admission Diagnosis/Problem Admission Diagnosis/Problem Cellulitis Subjective Update: Follow Up Functional Status: Reports: Pain Controlled, Tolerating Diet, Ambulating, Urinating. Denies: New Symptoms - Review of Systems General: Denies: Fever, Weakness, Fatigue, Malaise, Chills HEENT: Reports: No Symptoms Pulmonary: Denies: Shortness of Breath Cardiovascular: Denies: Chest Pain Gastrointestinal: Denies: Abdominal Pain, Nausea, Vomiting Genitourinary: Reports: No Symptoms Musculoskeletal: Reports: No Symptoms Skin: Reports: Rash. Denies: Cyanosis, Mottled, Pallor, Diaphoresis Neurological: Reports: Gait Disturbance. Denies: Confusion, Difficulty Walking , Weakness Psychiatric: Denies: Depression, Anxiety, Agitation, Hallucinations - Patient Data Vitals - Most Recent: Last Vital Signs Temp 36.2 C 07/27/17 03:31 Pulse 64 07/27/17 03:31 Resp 18 07/27/17 03:31 BP 105/70 07/27/17 03:31 Pulse Ox 96 07/27/17 03:31 Weight - Most Recent: 138.346 kg I&O - Last 24 Hours: Intake & Output 07/26/17 07/26/17 07/27/17 14:59 22:59 06:59 Intake Total 620 2040 800 Balance 620 2040 800 Lab Results Last 24 Hours: Laboratory Results - last 24 hr 07/26/17 07/26/17 07/26/17 Range/Units 11:14 16:26 21:37 WBC (3.98-10.04) K/mm3 RBC (3.98-5.22) M/mm3 Hgb (11.2-15.7) gm/L Hct (34.1-44.9) % MCV (79.4-94.8) fl MCH (25.6-32.2) pg MCHC (32.2-35.5) g/dl RDW Std Deviation (36.4-46.3) fL Plt Count (182-369) K/mm3 MPV (9.4-12.3) fl Neut % (Auto) (34.0-71.1) % Lymph % (Auto) (19.3-51.7) % Ocean % (Auto) (4.7-12.5) % Eos % (Auto) (0.7-5.8) Baso % (Auto) (0.1-1.2) % Neut # (Auto) (1.56-6.13) K/mm3 Lymph # (Auto) (1.18-3.74) K/mm3 [place] # (Auto) (0.24-0.36) K/mm3 Eos # (Auto) (0.04-0.36) K/mm3 Baso # (Auto) (0.01-0.08) K/mm3 POC Glucose 157 H 162 H 144 H (70-105) mg/dL 07/27/17 Range/Units 05:14 WBC 10.03 (3.98-10.04) K/mm3 RBC 3.36 L (3.98-5.22) M/mm3 Hgb 10.5 L (11.2-15.7) gm/L Hct 33.2 L (34.1-44.9) % MCV 98.8 H (79.4-94.8) fl MCH 31.3 (25.6-32.2) pg MCHC 31.6 L (32.2-35.5) g/dl RDW Std Deviation 54.1 H (36.4-46.3) fL Plt Count 397 H (182-369) K/mm3 MPV 10.8 (9.4-12.3) fl Neut % (Auto) 72.6 H (34.0-71.1) % Lymph % (Auto) 15.9 L (19.3-51.7) % [place] % (Auto) 5.5 (4.7-12.5) % Eos % (Auto) 3.3 (0.7-5.8) Baso % (Auto) 0.3 (0.1-1.2) % Neut # (Auto) 7.29 H (1.56-6.13) K/mm3 Lymph # (Auto) 1.59 (1.18-3.74) K/mm3 [place] # (Auto) 0.55 H (0.24-0.36) K/mm3 Eos # (Auto) 0.33 (0.04-0.36) K/mm3 Baso # (Auto) 0.03 (0.01-0.08) K/mm3 POC Glucose (70-105) mg/dL Frandy Results Last 24 Hours: Microbiology 07/22/17 13:20 Aerobic Blood Culture - Preliminary Blood - Venous - Lab Draw NO GROWTH AFTER 4 DAYS Anaerobic Blood Culture - Preliminary NO GROWTH AFTER 4 DAYS 07/22/17 13:05 Aerobic Blood Culture - Preliminary Blood - Venous NO GROWTH AFTER 4 DAYS Anaerobic Blood Culture - Preliminary NO GROWTH AFTER 4 DAYS Med Orders - Current: Current Medications Aspirin (Ecotrin) 325 mg PO DAILY [facility] Last Admin: 07/26/17 08:33 Dose: 325 mg Dextrose/Water (Dextrose 50% In Water) 50 ml IVPUSH ASDIRECTED PRN PRN Reason: Hypoglycemia Gabapentin (Neurontin) 300 mg PO BEDTIME [facility] Last Admin: 07/26/17 20:29 Dose: 300 mg Gemfibrozil (Lopid) 600 mg PO BIDAC [facility] Last Admin: 07/27/17 06:09 Dose: 600 mg Glipizide (Glucotrol Xl) 5 mg PO BID [facility] Last Admin: 07/26/17 20:29 Dose: 5 mg Heparin Sodium (Porcine) (Heparin Sodium) 5,000 units SUBCUT Q8H [facility] Last Admin: 07/27/17 02:42 Dose: Not Given Clindamycin Phosphate 600 mg/ (Sodium Chloride) 104 mls @ 208 mls/hr IV Q12H [facility] Last Admin: 07/27/17 00:45 Dose: 208 mls/hr Piperacillin Sod/Tazobactam (Sod 4.5 gm/ Sodium Chloride) 100 mls @ 25 mls/hr IV Q8H [facility] Last Admin: 07/27/17 04:40 Dose: 25 mls/hr Ibuprofen (Motrin) 600 mg PO Q8H PRN PRN Reason: Pain Last Admin: 07/24/17 20:34 Dose: 600 mg Insulin Aspart (Novolog) 0 unit SUBCUT QIDACANDBED [facility] PRN Reason: Protocol Last Admin: 07/26/17 22:45 Dose: Not Given Levothyroxine Sodium (Levothroid) 137 mcg PO DAILY@0600 [facility] Last Admin: 07/27/17 06:09 Dose: 137 mcg Metformin HCl (Glucophage) 1,000 mg PO BIDMEALS [facility] Last Admin: 07/27/17 06:09 Dose: 1,000 mg Rosuvastatin Calcium (Crestor) 5 mg PO BEDTIME [facility] Last Admin: 07/26/17 20:28 Dose: 5 mg Saccharomyces Boulardii (Florastor) 250 mg PO BID [facility] Last Admin: 07/26/17 20:28 Dose: 250 mg Discontinued Medications Enoxaparin Sodium (Lovenox) 30 mg SUBCUT DAILY [facility] Hydromorphone HCl (Dilaudid) 1 mg IVPUSH ONETIME ONE Stop: 07/20/17 12:34 Last Admin: 07/20/17 12:39 Dose: 1 mg Ampicillin Sodium/Sulbactam (Sodium 3 gm/ Sodium Chloride) 100 mls @ 200 mls/ hr IV ONETIME ONE Stop: 07/20/17 11:13 Last Admin: 07/20/17 12:22 Dose: 200 mls/hr Vancomycin HCl 2 gm/ Sodium (Chloride) 250 mls @ 250 mls/hr IV ONETIME STA Stop: 07/20/17 11:43 Last Admin: 07/20/17 11:02 Dose: 250 mls/hr Sodium Chloride (Sodium Chloride 0.45%) 1,000 mls @ 150 mls/hr IV ASDIRECTED [facility] Stop: 07/21/17 02:01 Last Admin: 07/21/17 00:35 Dose: 150 mls/hr Ampicillin Sodium/Sulbactam (Sodium 3 gm/ Sodium Chloride) 100 mls @ 200 mls/ hr IV Q6H [facility] Last Admin: 07/21/17 06:21 Dose: 200 mls/hr Vancomycin HCl 1 gm/Vancomycin HCl 500 mg/ Sodium Chloride 500 mls @ 333 mls/ hr IV Q24H [facility] Last Admin: 07/22/17 10:10 Dose: 333 mls/hr Piperacillin Sod/Tazobactam (Sod 4.5 gm/ Sodium Chloride) 100 mls @ 200 mls/hr IV ONETIME ONE Stop: 07/21/17 12:29 Piperacillin Sod/Tazobactam (Sod 4.5 gm/ Sodium Chloride) 100 mls @ 25 mls/hr IV Q8H [facility] Cefazolin Sodium/Dextrose 2 gm (/ Premix) 50 mls @ 100 mls/hr IV Q8H [facility] Sodium Chloride (Sodium Chloride 0.45%) 1,000 mls @ 150 mls/hr IV ASDIRECTED [facility] Last Admin: 07/21/17 14:25 Dose: 150 mls/hr Piperacillin Sod/Tazobactam (Sod 4.5 gm/ Sodium Chloride) 100 mls @ 33.333 mls/ hr IV Q6H [facility] Piperacillin Sod/Tazobactam (Sod 4.5 gm/ Sodium Chloride) 100 mls @ 200 mls/hr IV ONETIME ONE Stop: 07/22/17 20:44 Last Admin: 07/22/17 20:36 Dose: 200 mls/hr Ibuprofen (Motrin) 600 mg PO Q8H PRN PRN Reason: Pain Last Admin: 07/21/17 06:26 Dose: 600 mg Levothyroxine Sodium (Levothroid) 137 mcg PO DAILY@0600 [facility] Last Admin: 07/21/17 07:54 Dose: Not Given Levothyroxine Sodium (Levothyroxine) 0 mcg PO DAILY@0600 [facility] Last Admin: 07/21/17 06:25 Dose: 125 mcg Levothyroxine Sodium (Levothyroxine) 0 mcg PO DAILY@0600 [facility] Levothyroxine Sodium (Levothyroxine) 0 mcg PO DAILY@0600 [facility] Last Admin: 07/21/17 06:25 Dose: 25 mcg Lorazepam (Ativan) 1 mg IVPUSH ONETIME ONE Stop: 07/21/17 11:06 Last Admin: 07/21/17 12:34 Dose: Not Given Metformin HCl (Glucophage) 1,000 mg PO BIDMEALS [facility] Last Admin: 07/21/17 06:26 Dose: 1,000 mg Metformin HCl (Glucophage) 1,000 mg PO BIDMEALS [facility] Vancomycin HCl (Pharmacy To Dose - Vancomycin) 1 dose .XX ASDIRECTED [facility] - Exam General: Alert, Oriented, Cooperative, No Acute Distress, Other (Morbidly Obese) HEENT: Pupils Equal, Pupils Reactive, EOMI, Mucous Membr. Moist/[place] Neck: Supple, Trachea Midline, No JVD, Other (short and thick) Lungs: Clear to Auscultation, Normal Respiratory Effort Cardiovascular: Regular Rate, Regular Rhythm GI/Abdominal Exam: Normal Bowel Sounds, Soft, Non-Tender, No Organomegaly, No Distention, No Abnormal Bruit, Other (Obese) (Female) Exam: Deferred Back Exam: Normal Inspection, Decreased Range of Motion Extremities: Normal Inspection (left leg), Normal Range of Motion (left leg), Non-Tender, No Pedal Edema (right leg), Normal Capillary Refill (left leg), Pedal Edema (left leg), Limited Range of Motion (left leg), Increased Warmth ( left leg), Redness (left leg: improving). No: Amparo's Sign Peripheral Pulses: 1+: Posterior Tibial (L), Dorsalis Pedis (L), 2+: Posterior Tibial (R), Dorsalis Pedis (R) Skin: Warm, Dry, Intact Wound/Incisions: No Drainage, Erythema Improving Neurological: No New Focal Deficit Psy/Mental Status: Alert, Normal Affect, Normal Mood - Problem List Review Problem List Initiated/Reviewed/Updated: Yes - My Orders Last 24 Hours: My Active Orders 07/27/17 05:14 BMP [BASIC METABOLIC PANEL,BMP] [CHEM] AM CBC WITH AUTO DIFF [HEME] AM MG [MAGNESIUM] [CHEM] AM 07/28/17 05:11 BMP [BASIC METABOLIC PANEL,BMP] [CHEM] AM CBC WITH AUTO DIFF [HEME] AM MG [MAGNESIUM] [CHEM] AM 07/29/17 05:11 MG [MAGNESIUM] [CHEM] AM - Plan Plan:: Assessment: Acute: LLE Diabetic Cellulitis with Foot Ulcer, Continue Improves - Risk Factor: DM2 and Home Hygiene Status - No worsening of leg infection - A1C 7.0 - Continue Clindamycin and IV Zosyn for pharmacy to dose 5th day - Dr. Snowden is following Non-Displaced Left Navicular Fracture, Stable - MRI findings - Conservative management - Venous Doppler is unremarkable for DVT; popliteal cyst noted - [facility] [place] - Podiatry eval after discharge DM2 - BS on average stable - Has refused ISS - Continue oral regimen Medical Non-compliance - She continues to refuse Lovenox SubQ and ISS Resolved: Hypoglycemia - BS: 62-74 range - Asymptomatic - On ISS and Glipizide 5 mg po BIP - Metformin on hold due to renal function Hypotension - She is not on BP Meds - Possible relatively hypotension; isolated case - She is not on any BP meds; Home HCTZ is currently on hold - Will continue to monitor Chronic: HLD on Fibrate and Statin CKD Stage 3 History of Reportedly PE---> REFUSING DVT PROPHYLAXIS; MARKEDLY HIGH RISK WITH PREVIOUS DVT! Morbid obesity with BMI of 50.2 Plan: She remains stable Continue current treatment Routine Daily Labs CM/SW for d/c planning DVT:continues to refuse lovenox subQ; SCDs CI due to cellulitis GI prophylaxis Encourage to ambulate down the [place] as tolerated Additional orders as above Code status: 1 D/c pending placement
[2017-07-27] MEDS: Insulin Aspart 100 Units/ML 3 ML Pen SUBCUT SCH ×4 (07:38→22:21)
[2017-07-27] MEDS: Aspirin 325 MG Tab.EC PO SCH (08:24)
[2017-07-27] MEDS: glipiZIDE 5 MG Tab.ER PO SCH ×2 (08:24→20:47)
[2017-07-27] MEDS: Saccharomyces Boulardii (Probiotic) 250 MG Cap PO SCH ×2 (08:24→20:45)
[2017-07-27] MEDS: Rosuvastatin 10 MG Tab PO SCH (20:46)
[2017-07-27] MEDS: Gabapentin 300 MG Cap PO SCH (20:47)
[2017-07-28] MEDS: Clindamycin Phosphate 600 MG in Sodium Chloride 0.9% 100 ML IV SCH ×2 (00:23→11:57)
[2017-07-28] MEDS: Heparin Sodium 5,000 Units/ML Vial SUBCUT SCH ×2 (02:00→10:52)
[2017-07-28] MEDS: Piperacillin/Tazobactam 4.5 GM in Sodium Chloride 0.9% 100 ML IV SCH ×2 (03:54→12:24)
[2017-07-28] MEDS: Gemfibrozil 600 MG Tab PO SCH ×2 (06:34→15:48)
[2017-07-28] MEDS: metFORMIN 500 MG Tab PO SCH ×2 (06:34→16:23)
[2017-07-28] MEDS: Aspirin 325 MG Tab.EC PO SCH (08:39)
[2017-07-28] MEDS: glipiZIDE 5 MG Tab.ER PO SCH (08:39)
[2017-07-28] MEDS: Saccharomyces Boulardii (Probiotic) 250 MG Cap PO SCH (08:39)
[2017-07-28] MEDS: Insulin Aspart 100 Units/ML 3 ML Pen SUBCUT SCH ×2 (10:52→12:12)
--- NOTE | 2017-07-28 11:43 | PCM.PN ---
- General Info Date of Service: 07/28/17 Admission Dx/Problem (Free Text): Admission Diagnosis/Problem Admission Diagnosis/Problem Cellulitis Subjective Update: Follow Up Functional Status: Reports: Pain Controlled, Tolerating Diet, Ambulating, Urinating. Denies: New Symptoms - Patient Data Vitals - Most Recent: Last Vital Signs Temp 36.7 C 07/28/17 08:46 Pulse 68 07/28/17 08:46 Resp 14 07/28/17 08:46 BP 106/67 07/28/17 08:46 Pulse Ox 98 07/28/17 08:46 Weight - Most Recent: 138.21 kg I&O - Last 24 Hours: Intake & Output 07/27/17 07/28/17 07/28/17 22:59 06:59 14:59 Intake Total 1300 1804 240 Output Total 2 Balance 1298 1804 240 Lab Results Last 24 Hours: Laboratory Results - last 24 hr 07/27/17 07/27/17 07/28/17 Range/Units 17:04 20:54 06:25 WBC 10.79 H (3.98-10.04) K/mm3 RBC 3.59 L (3.98-5.22) M/mm3 Hgb 11.1 L (11.2-15.7) gm/L Hct 35.5 (34.1-44.9) % MCV 98.9 H (79.4-94.8) fl MCH 30.9 (25.6-32.2) pg MCHC 31.3 L (32.2-35.5) g/dl RDW Std Deviation 54.9 H (36.4-46.3) fL Plt Count 401 H (182-369) K/mm3 MPV 10.0 (9.4-12.3) fl Neut % (Auto) 78.1 H (34.0-71.1) % Lymph % (Auto) 12.5 L (19.3-51.7) % [place] % (Auto) 5.3 (4.7-12.5) % Eos % (Auto) 2.3 (0.7-5.8) Baso % (Auto) 0.2 (0.1-1.2) % Neut # (Auto) 8.43 H (1.56-6.13) K/mm3 Lymph # (Auto) 1.35 (1.18-3.74) K/mm3 [place] # (Auto) 0.57 H (0.24-0.36) K/mm3 Eos # (Auto) 0.25 (0.04-0.36) K/mm3 Baso # (Auto) 0.02 (0.01-0.08) K/mm3 Manual Slide Review Normal smear Sodium (136-145) mEq/L Potassium (3.5-5.1) mEq/L Chloride (98-107) mEq/L Carbon Dioxide (21-32) mEq/L Anion Gap (5-15) BUN (7-18) mg/dL Creatinine (0.55-1.02) mg/dL Est Cr Clr Drug Dosing mL/min Estimated GFR (MDRD) (>60) mL/min BUN/Creatinine Ratio (14-18) Glucose (74-106) mg/dL POC Glucose 142 H 127 H (70-105) mg/dL Calcium (8.5-10.1) mg/dL Magnesium (1.8-2.4) mg/dl 07/28/17 Range/Units 06:25 WBC (3.98-10.04) K/mm3 RBC (3.98-5.22) M/mm3 Hgb (11.2-15.7) gm/L Hct (34.1-44.9) % MCV (79.4-94.8) fl MCH (25.6-32.2) pg MCHC (32.2-35.5) g/dl RDW Std Deviation (36.4-46.3) fL Plt Count (182-369) K/mm3 MPV (9.4-12.3) fl Neut % (Auto) (34.0-71.1) % Lymph % (Auto) (19.3-51.7) % [place] % (Auto) (4.7-12.5) % Eos % (Auto) (0.7-5.8) Baso % (Auto) (0.1-1.2) % Neut # (Auto) (1.56-6.13) K/mm3 Lymph # (Auto) (1.18-3.74) K/mm3 [place] # (Auto) (0.24-0.36) K/mm3 Eos # (Auto) (0.04-0.36) K/mm3 Baso # (Auto) (0.01-0.08) K/mm3 Manual Slide Review Sodium 142 (136-145) mEq/L Potassium 4.7 (3.5-5.1) mEq/L Chloride 107 (98-107) mEq/L Carbon Dioxide 25 (21-32) mEq/L Anion Gap 14.7 (5-15) BUN 14 (7-18) mg/dL Creatinine 1.3 H (0.55-1.02) mg/dL Est Cr Clr Drug Dosing 46.59 mL/min Estimated GFR (MDRD) 43 (>60) mL/min BUN/Creatinine Ratio 10.8 L (14-18) Glucose 156 H (74-106) mg/dL POC Glucose (70-105) mg/dL Calcium 9.3 (8.5-10.1) mg/dL Magnesium 1.9 (1.8-2.4) mg/dl Frandy Results Last 24 Hours: Microbiology 07/22/17 13:20 Aerobic Blood Culture - Preliminary Blood - Venous - Lab Draw NO GROWTH AFTER 5 DAYS Anaerobic Blood Culture - Preliminary NO GROWTH AFTER 5 DAYS 07/22/17 13:05 Aerobic Blood Culture - Preliminary Blood - Venous NO GROWTH AFTER 5 DAYS Anaerobic Blood Culture - Preliminary NO GROWTH AFTER 5 DAYS Med Orders - Current: Current Medications Aspirin (Ecotrin) 325 mg PO DAILY [facility] Last Admin: 07/28/17 08:39 Dose: 325 mg Dextrose/Water (Dextrose 50% In Water) 50 ml IVPUSH ASDIRECTED PRN PRN Reason: Hypoglycemia Gabapentin (Neurontin) 300 mg PO BEDTIME [facility] Last Admin: 07/27/17 20:47 Dose: 300 mg Gemfibrozil (Lopid) 600 mg PO BIDAC [facility] Last Admin: 07/28/17 06:34 Dose: 600 mg Glipizide (Glucotrol Xl) 5 mg PO BID [facility] Last Admin: 07/28/17 08:39 Dose: 5 mg Heparin Sodium (Porcine) (Heparin Sodium) 5,000 units SUBCUT Q8H [facility] Last Admin: 07/28/17 10:52 Dose: Not Given Clindamycin Phosphate 600 mg/ (Sodium Chloride) 104 mls @ 208 mls/hr IV Q12H [facility] Last Admin: 07/28/17 00:23 Dose: 208 mls/hr Piperacillin Sod/Tazobactam (Sod 4.5 gm/ Sodium Chloride) 100 mls @ 25 mls/hr IV Q8H [facility] Last Admin: 07/28/17 03:54 Dose: 25 mls/hr Ibuprofen (Motrin) 600 mg PO Q8H PRN PRN Reason: Pain Last Admin: 07/24/17 20:34 Dose: 600 mg Insulin Aspart (Novolog) 0 unit SUBCUT QIDACANDBED [facility] PRN Reason: Protocol Last Admin: 07/28/17 10:52 Dose: Not Given Levothyroxine Sodium (Levothroid) 137 mcg PO DAILY@0600 [facility] Last Admin: 07/28/17 06:33 Dose: 137 mcg Metformin HCl (Glucophage) 1,000 mg PO BIDMEALS [facility] Last Admin: 07/28/17 06:34 Dose: 1,000 mg Rosuvastatin Calcium (Crestor) 5 mg PO BEDTIME [facility] Last Admin: 07/27/17 20:46 Dose: 5 mg Saccharomyces Boulardii (Florastor) 250 mg PO BID [facility] Last Admin: 07/28/17 08:39 Dose: 250 mg Discontinued Medications Enoxaparin Sodium (Lovenox) 30 mg SUBCUT DAILY [facility] Hydromorphone HCl (Dilaudid) 1 mg IVPUSH ONETIME ONE Stop: 07/20/17 12:34 Last Admin: 07/20/17 12:39 Dose: 1 mg Ampicillin Sodium/Sulbactam (Sodium 3 gm/ Sodium Chloride) 100 mls @ 200 mls/ hr IV ONETIME ONE Stop: 07/20/17 11:13 Last Admin: 07/20/17 12:22 Dose: 200 mls/hr Vancomycin HCl 2 gm/ Sodium (Chloride) 250 mls @ 250 mls/hr IV ONETIME STA Stop: 07/20/17 11:43 Last Admin: 07/20/17 11:02 Dose: 250 mls/hr Sodium Chloride (Sodium Chloride 0.45%) 1,000 mls @ 150 mls/hr IV ASDIRECTED [facility] Stop: 07/21/17 02:01 Last Admin: 07/21/17 00:35 Dose: 150 mls/hr Ampicillin Sodium/Sulbactam (Sodium 3 gm/ Sodium Chloride) 100 mls @ 200 mls/ hr IV Q6H [facility] Last Admin: 07/21/17 06:21 Dose: 200 mls/hr Vancomycin HCl 1 gm/Vancomycin HCl 500 mg/ Sodium Chloride 500 mls @ 333 mls/ hr IV Q24H [facility] Last Admin: 07/22/17 10:10 Dose: 333 mls/hr Piperacillin Sod/Tazobactam (Sod 4.5 gm/ Sodium Chloride) 100 mls @ 200 mls/hr IV ONETIME ONE Stop: 07/21/17 12:29 Piperacillin Sod/Tazobactam (Sod 4.5 gm/ Sodium Chloride) 100 mls @ 25 mls/hr IV Q8H [facility] Cefazolin Sodium/Dextrose 2 gm (/ Premix) 50 mls @ 100 mls/hr IV Q8H [facility] Sodium Chloride (Sodium Chloride 0.45%) 1,000 mls @ 150 mls/hr IV ASDIRECTED [facility] Last Admin: 07/21/17 14:25 Dose: 150 mls/hr Piperacillin Sod/Tazobactam (Sod 4.5 gm/ Sodium Chloride) 100 mls @ 33.333 mls/ hr IV Q6H [facility] Piperacillin Sod/Tazobactam (Sod 4.5 gm/ Sodium Chloride) 100 mls @ 200 mls/hr IV ONETIME ONE Stop: 07/22/17 20:44 Last Admin: 07/22/17 20:36 Dose: 200 mls/hr Ibuprofen (Motrin) 600 mg PO Q8H PRN PRN Reason: Pain Last Admin: 07/21/17 06:26 Dose: 600 mg Levothyroxine Sodium (Levothroid) 137 mcg PO DAILY@0600 [facility] Last Admin: 07/21/17 07:54 Dose: Not Given Levothyroxine Sodium (Levothyroxine) 0 mcg PO DAILY@0600 [facility] Last Admin: 07/21/17 06:25 Dose: 125 mcg Levothyroxine Sodium (Levothyroxine) 0 mcg PO DAILY@0600 [facility] Levothyroxine Sodium (Levothyroxine) 0 mcg PO DAILY@0600 [facility] Last Admin: 07/21/17 06:25 Dose: 25 mcg Lorazepam (Ativan) 1 mg IVPUSH ONETIME ONE Stop: 07/21/17 11:06 Last Admin: 07/21/17 12:34 Dose: Not Given Metformin HCl (Glucophage) 1,000 mg PO BIDMEALS [facility] Last Admin: 07/21/17 06:26 Dose: 1,000 mg Metformin HCl (Glucophage) 1,000 mg PO BIDMEALS [facility] Vancomycin HCl (Pharmacy To Dose - Vancomycin) 1 dose .XX ASDIRECTED [facility] - My Orders Last 24 Hours: My Active Orders 07/29/17 05:11 MG [MAGNESIUM] [CHEM] AM - Plan Plan:: Assessment: Acute: LLE Diabetic Cellulitis with Foot Ulcer, Continue Improves - Risk Factor: DM2 and Home Hygiene Status - No worsening of leg infection - A1C 7.0 - Continue Clindamycin and IV Zosyn for pharmacy to dose 5th day - Dr. Snowden is following Non-Displaced Left Navicular Fracture, Stable - MRI findings - Conservative management - Venous Doppler is unremarkable for DVT; popliteal cyst noted - Foot cool consult ([facility]) - Podiatry eval after discharge DM2 - BS on average stable - Has refused ISS - Continue oral regimen Medical Non-compliance - She continues to refuse Lovenox SubQ and ISS Resolved: Hypoglycemia - BS: 62-74 range - Asymptomatic - On ISS and Glipizide 5 mg po BIP - Metformin on hold due to renal function Hypotension - She is not on BP Meds - Possible relatively hypotension; isolated case - She is not on any BP meds; Home HCTZ is currently on hold - Will continue to monitor Chronic: HLD on Fibrate and Statin CKD Stage 3 History of Reportedly PE---> REFUSING DVT PROPHYLAXIS; MARKEDLY HIGH RISK WITH PREVIOUS DVT! Morbid obesity with BMI of 50.2 Plan: She remains stable Continue current treatment Routine Daily Labs CM/SW for d/c planning DVT:continues to refuse lovenox subQ; SCDs CI due to cellulitis GI prophylaxis Encourage to ambulate down the [place] as tolerated Additional orders as above Code status: 1 D/c pending placement
--- NOTE | 2017-07-28 14:25 | PCM.DCSUM1 ---
Discharge Summary - Hospital Course Brief History: This is a 52 year old middle aged diabetic who has not checked her bloood sugar in at least a month. She states that it normally runs less than 180. She reports persistent foot ulcerations on the dorsum of each foot involving the 2 and 4 metatarsals. She states that her feet have had ulcers for at least a year because of her shoes. Her left leg was edematous, erythematous and painful to the touch. She was admitted for medical treatment for diabetic foot ulcer and cellulitis. - Discharge Data Discharge Date: 07/28/17 Discharge Disposition: DC/Tfer to [facility] Condition: Good - Discharge Diagnosis/Problem(s) (1) Closed navicular fracture of left foot SNOMED Code(s): 70200464 ICD Code: S92.252A - DISP FX OF NAVICULAR OF LEFT FOOT, INIT FOR CLOS FX Status: Acute (2) Diabetic foot ulcer associated with secondary diabetes mellitus SNOMED Code(s): 131856133 ICD Code: E08.621 - DIABETES MELLITUS DUE TO UNDERLYING CONDITION W FOOT ULCER; L97.509 - NON-PRESSURE CHRONIC ULCER OTH PRT UNSP FOOT W UNSP SEVERITY Status: Acute Qualifiers: Diabetic foot ulcer location: toe Laterality: left Non-pressure ulcer stage: with other severity Qualified Code(s): E08.621 - Diabetes mellitus due to underlying condition with foot ulcer; L97.528 - Non-pressure chronic ulcer of other part of left foot with other specified severity; L97.528 - Non- pressure chronic ulcer of other part of left foot with other specified severity (3) Cellulitis of left leg SNOMED Code(s): 338418536 ICD Code: L03.116 - CELLULITIS OF LEFT LOWER LIMB Status: Acute (4) Hyperglycemia due to type 2 diabetes mellitus SNOMED Code(s): 565549726774352 ICD Code: E11.65 - TYPE 2 DIABETES MELLITUS WITH HYPERGLYCEMIA Status: Acute Qualifiers: Diabetes mellitus local 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 truck driver insulin use: without local intermodal truck driver use Qualified Code(s): E11.65 - Type 2 diabetes mellitus with hyperglycemia (5) CKD stage 3 due to type 2 diabetes mellitus SNOMED Code(s): 084707740064 ICD Code: E11.22 - TYPE 2 DIABETES MELLITUS W DIABETIC CHRONIC KIDNEY DISEASE ; N18.3 - CHRONIC KIDNEY DISEASE, STAGE 3 (MODERATE) Status: Chronic (6) HLD (hyperlipidemia) SNOMED Code(s): 00053640 ICD Code: E78.5 - HYPERLIPIDEMIA, UNSPECIFIED Status: Chronic Qualifiers: Hyperlipidemia type: mixed hyperlipidemia Qualified Code(s): E78.2 - Mixed hyperlipidemia (7) Morbid obesity with BMI of 50.0-59.9, adult SNOMED Code(s): 858422805 ICD Code: E66.01 - MORBID (SEVERE) OBESITY DUE TO EXCESS CALORIES; Z68.43 - BODY MASS INDEX (BMI) 50-59.9 , ADULT Status: Chronic - Patient Summary/Data Operative Procedure(s) Performed: None Complications: None Consults: Consultations 07/20/17 15:59 Consult to Water Treatment Plant Mechanic [Consult to Diabetic Nurse Specialist] [CONS] Routine 07/20/17 16:00 Consult to Dietary [Consult to Delivery Architect] [CONS] Routine 07/20/17 17:00 Consult to Physician [CONS] Routine 07/20/17 17:02 Consult to Case Management [CONS] Routine 07/20/17 18:31 PT Evaluation and Treatment [CONS] Routine 07/21/17 10:00 Consult to Occupational Therapy [OT Evaluation and Treatment] [CONS] Routine Consult to Physical Therapy [PT Evaluation and Treatment] [CONS] Routine Labs Pending at D/C: None Recommended Follow-up Testing/Procedures: None Planned Operative Procedure(s) after DC: None Hospital Course: Patient was primarily admitted for medical treatment of diabetic foot ulcer with SSTI. She carried a hx/o long standing diabetes type 2 and morbid obesity with a BMI of 50. Her UA was negative as well as blood cultures. Upon admission, she presented with beefy red left lower extremity. CT scan of her affected leg showed soft tissue edema but noted for peripheral navicular bone fracture. Dr. Snowden was consulted for further evaluation and recommended mainly conservative management. PT/OT worked with her to improved her stability and gait. Her hospital course was uncomplicated but the rest of her chronic medical illness remained stable during this admission. Patient was non-compliant with medical treatment but we worked with her to achieve an acceptable care and medical treatment. Patient was stable upon discharge. She was transferred to [place] Step down unit for further treatment. She was advised to practice lifestyle modifications. She was further advised to follow up with her PCP in 1 week after discharge from rehab. Patient expressed understanding and in agreement with the plans as discussed above. All questions were answered. - Patient Instructions Diet: Heart Healthy Diet, Usual Diet as Tolerated, Diabetic Diet, Weight Loss Diet Activity: As Tolerated Driving: Do Not Drive Showering/Bathing: May Shower Notify Provider of: Fever, Increased Pain, Swelling and Redness, Drainage, Nausea and/or Vomiting Other/Special Instructions: - Transfer to Step Down Unit in [place] under the services of Dr. Barney. - Please follow lifestyle modifications: exercise regularly, eat properly and lose weight. - Recommed you follow up with podiatry after discharge for routine foot care. - Follow up with your PCP 1 week after discharge from [place] - Discharge Plan Prescriptions/Med Rec: Clindamycin Phosphate/D5W [Clindamycin-D5w 600 mg/50 ml] 600 mg IV Q12H #11 ml Piperacillin/Tazobactam [Zosyn 4.5 GM] 4.5 gm IV Q8H #16 vial Saccharomyces Boulardii [Florastor] 250 mg PO TID #16 cap Home Medications: Home Meds Gemfibrozil 600 mg PO BID 01/28/17 [History] Hydrochlorothiazide 25 mg PO DAILY 01/28/17 [History] Levothyroxine Sodium [Levoxyl] 137 mcg PO DAILY 01/28/17 [History] glipiZIDE [Glucotrol XL] 5 mg PO BID 01/28/17 [History] metFORMIN [Glucophage XR] 1,000 mg PO BID 01/28/17 [History] Aspirin 325 mg PO DAILY 07/20/17 [History] Gabapentin [Neurontin] 300 mg PO BEDTIME 07/20/17 [History] Clindamycin Phosphate/D5W [Clindamycin-D5w 600 mg/50 ml] 600 mg IV Q12H #11 ml 07/28/17 [Rx] Piperacillin/Tazobactam [Zosyn 4.5 GM] 4.5 gm IV Q8H #16 vial 07/28/17 [Rx] Saccharomyces Boulardii [Florastor] 250 mg PO TID #16 cap 07/28/17 [Rx] Patient Handouts: Smoking Cessation, Tips for Success, [id number], Diabetes and Foot Care, Diabetes and Sick Day Management, How to Avoid Diabetes Problems - Discharge Summary/Plan Comment DC Time >30 min.: Yes (45 mins) Discharge Summary/Plan Comment: Transfer to [place] Step down unit for further treatment. She will be under the services under Dr. Barney, attending. - General Info Date of Service: 07/28/17 Admission Dx/Problem (Free Text: Diabetic Cellulitis and Foot Ulcer Subjective Update: Follow Up Functional Status: Reports: Pain Controlled, Tolerating Diet, Ambulating, Urinating. Denies: New Symptoms - Review of Systems General: Denies: Fever, Weakness, Fatigue, Malaise HEENT: Reports: No Symptoms Pulmonary: Denies: Shortness of Breath Cardiovascular: Denies: Chest Pain Gastrointestinal: Denies: Abdominal Pain, Diarrhea, Vomiting Genitourinary: Reports: No Symptoms Musculoskeletal: Reports: No Symptoms Skin: Reports: Rash Neurological: Denies: Confusion, Dizziness, Difficulty Walking, Weakness, Gait Disturbance Psychiatric: Denies: Depression, Anxiety, Agitation, Hallucinations Systems Review Comment: No significant overnight or acute issues. She had a pretty good night. She is comfortable and in no distress. She reports no new complaints. - Patient Data Vitals - Most Recent: Last Vital Signs Temp 36.7 C 07/28/17 08:46 Pulse 68 07/28/17 08:46 Resp 14 07/28/17 08:46 BP 106/67 07/28/17 08:46 Pulse Ox 98 07/28/17 08:46 Weight - Most Recent: 138.21 kg I&O - Last 24 hours: Intake & Output 07/27/17 07/28/17 07/28/17 22:59 06:59 14:59 Intake Total 1300 1804 240 Output Total 2 Balance 1298 1804 240 Lab Results - Last 24 hrs: Laboratory Results - last 24 hr 07/27/17 07/27/17 07/28/17 Range/Units 17:04 20:54 06:25 WBC 10.79 H (3.98-10.04) K/mm3 RBC 3.59 L (3.98-5.22) M/mm3 Hgb 11.1 L (11.2-15.7) gm/L Hct 35.5 (34.1-44.9) % MCV 98.9 H (79.4-94.8) fl MCH 30.9 (25.6-32.2) pg MCHC 31.3 L (32.2-35.5) g/dl RDW Std Deviation 54.9 H (36.4-46.3) fL Plt Count 401 H (182-369) K/mm3 MPV 10.0 (9.4-12.3) fl Neut % (Auto) 78.1 H (34.0-71.1) % Lymph % (Auto) 12.5 L (19.3-51.7) % [place] % (Auto) 5.3 (4.7-12.5) % Eos % (Auto) 2.3 (0.7-5.8) Baso % (Auto) 0.2 (0.1-1.2) % Neut # (Auto) 8.43 H (1.56-6.13) K/mm3 Lymph # (Auto) 1.35 (1.18-3.74) K/mm3 [place] # (Auto) 0.57 H (0.24-0.36) K/mm3 Eos # (Auto) 0.25 (0.04-0.36) K/mm3 Baso # (Auto) 0.02 (0.01-0.08) K/mm3 Manual Slide Review Normal smear Sodium (136-145) mEq/L Potassium (3.5-5.1) mEq/L Chloride (98-107) mEq/L Carbon Dioxide (21-32) mEq/L Anion Gap (5-15) BUN (7-18) mg/dL Creatinine (0.55-1.02) mg/dL Est Cr Clr Drug Dosing mL/min Estimated GFR (MDRD) (>60) mL/min BUN/Creatinine Ratio (14-18) Glucose (74-106) mg/dL POC Glucose 142 H 127 H (70-105) mg/dL Calcium (8.5-10.1) mg/dL Magnesium (1.8-2.4) mg/dl 07/28/17 07/28/17 Range/Units 06:25 12:01 WBC (3.98-10.04) K/mm3 RBC (3.98-5.22) M/mm3 Hgb (11.2-15.7) gm/L Hct (34.1-44.9) % MCV (79.4-94.8) fl MCH (25.6-32.2) pg MCHC (32.2-35.5) g/dl RDW Std Deviation (36.4-46.3) fL Plt Count (182-369) K/mm3 MPV (9.4-12.3) fl Neut % (Auto) (34.0-71.1) % Lymph % (Auto) (19.3-51.7) % [place] % (Auto) (4.7-12.5) % Eos % (Auto) (0.7-5.8) Baso % (Auto) (0.1-1.2) % Neut # (Auto) (1.56-6.13) K/mm3 Lymph # (Auto) (1.18-3.74) K/mm3 [place] # (Auto) (0.24-0.36) K/mm3 Eos # (Auto) (0.04-0.36) K/mm3 Baso # (Auto) (0.01-0.08) K/mm3 Manual Slide Review Sodium 142 (136-145) mEq/L Potassium 4.7 (3.5-5.1) mEq/L Chloride 107 (98-107) mEq/L Carbon Dioxide 25 (21-32) mEq/L Anion Gap 14.7 (5-15) BUN 14 (7-18) mg/dL Creatinine 1.3 H (0.55-1.02) mg/dL Est Cr Clr Drug Dosing 46.59 mL/min Estimated GFR (MDRD) 43 (>60) mL/min BUN/Creatinine Ratio 10.8 L (14-18) Glucose 156 H (74-106) mg/dL POC Glucose 172 H (70-105) mg/dL Calcium 9.3 (8.5-10.1) mg/dL Magnesium 1.9 (1.8-2.4) mg/dl ELMA Results - Last 24 hrs: Microbiology 07/22/17 13:20 Aerobic Blood Culture - Preliminary Blood - Venous - Lab Draw NO GROWTH AFTER 6 DAYS Anaerobic Blood Culture - Preliminary NO GROWTH AFTER 6 DAYS 07/22/17 13:05 Aerobic Blood Culture - Preliminary Blood - Venous NO GROWTH AFTER 6 DAYS Anaerobic Blood Culture - Preliminary NO GROWTH AFTER 6 DAYS Med Orders - Current: Current Medications Aspirin (Ecotrin) 325 mg PO DAILY [place] Last Admin: 07/28/17 08:39 Dose: 325 mg Dextrose/Water (Dextrose 50% In Water) 50 ml IVPUSH ASDIRECTED PRN PRN Reason: Hypoglycemia Gabapentin (Neurontin) 300 mg PO BEDTIME [facility] Last Admin: 07/27/17 20:47 Dose: 300 mg Gemfibrozil (Lopid) 600 mg PO BIDAC [facility] Last Admin: 07/28/17 06:34 Dose: 600 mg Glipizide (Glucotrol Xl) 5 mg PO BID [facility] Last Admin: 07/28/17 08:39 Dose: 5 mg Heparin Sodium (Porcine) (Heparin Sodium) 5,000 units SUBCUT Q8H [facility] Last Admin: 07/28/17 10:52 Dose: Not Given Clindamycin Phosphate 600 mg/ (Sodium Chloride) 104 mls @ 208 mls/hr IV Q12H [facility] Last Admin: 07/28/17 11:57 Dose: 208 mls/hr Piperacillin Sod/Tazobactam (Sod 4.5 gm/ Sodium Chloride) 100 mls @ 25 mls/hr IV Q8H [facility] Last Admin: 07/28/17 12:24 Dose: 25 mls/hr Ibuprofen (Motrin) 600 mg PO Q8H PRN PRN Reason: Pain Last Admin: 07/24/17 20:34 Dose: 600 mg Insulin Aspart (Novolog) 0 unit SUBCUT QIDACANDBED [facility] PRN Reason: Protocol Last Admin: 07/28/17 12:12 Dose: Not Given Levothyroxine Sodium (Levothroid) 137 mcg PO DAILY@0600 [facility] Last Admin: 07/28/17 06:33 Dose: 137 mcg Metformin HCl (Glucophage) 1,000 mg PO BIDMEALS [facility] Last Admin: 07/28/17 06:34 Dose: 1,000 mg Rosuvastatin Calcium (Crestor) 5 mg PO BEDTIME [facility] Last Admin: 07/27/17 20:46 Dose: 5 mg Saccharomyces Boulardii (Florastor) 250 mg PO BID [facility] Last Admin: 07/28/17 08:39 Dose: 250 mg Discontinued Medications Enoxaparin Sodium (Lovenox) 30 mg SUBCUT DAILY [facility] Hydromorphone HCl (Dilaudid) 1 mg IVPUSH ONETIME ONE Stop: 07/20/17 12:34 Last Admin: 07/20/17 12:39 Dose: 1 mg Ampicillin Sodium/Sulbactam (Sodium 3 gm/ Sodium Chloride) 100 mls @ 200 mls/ hr IV ONETIME ONE Stop: 07/20/17 11:13 Last Admin: 07/20/17 12:22 Dose: 200 mls/hr Vancomycin HCl 2 gm/ Sodium (Chloride) 250 mls @ 250 mls/hr IV ONETIME STA Stop: 07/20/17 11:43 Last Admin: 07/20/17 11:02 Dose: 250 mls/hr Sodium Chloride (Sodium Chloride 0.45%) 1,000 mls @ 150 mls/hr IV ASDIRECTED [facility] Stop: 07/21/17 02:01 Last Admin: 07/21/17 00:35 Dose: 150 mls/hr Ampicillin Sodium/Sulbactam (Sodium 3 gm/ Sodium Chloride) 100 mls @ 200 mls/ hr IV Q6H [facility] Last Admin: 07/21/17 06:21 Dose: 200 mls/hr Vancomycin HCl 1 gm/Vancomycin HCl 500 mg/ Sodium Chloride 500 mls @ 333 mls/ hr IV Q24H [facility] Last Admin: 07/22/17 10:10 Dose: 333 mls/hr Piperacillin Sod/Tazobactam (Sod 4.5 gm/ Sodium Chloride) 100 mls @ 200 mls/hr IV ONETIME ONE Stop: 07/21/17 12:29 Piperacillin Sod/Tazobactam (Sod 4.5 gm/ Sodium Chloride) 100 mls @ 25 mls/hr IV Q8H [facility] Cefazolin Sodium/Dextrose 2 gm (/ Premix) 50 mls @ 100 mls/hr IV Q8H [facility] Sodium Chloride (Sodium Chloride 0.45%) 1,000 mls @ 150 mls/hr IV ASDIRECTED [facility] Last Admin: 07/21/17 14:25 Dose: 150 mls/hr Piperacillin Sod/Tazobactam (Sod 4.5 gm/ Sodium Chloride) 100 mls @ 33.333 mls/ hr IV Q6H [facility] Piperacillin Sod/Tazobactam (Sod 4.5 gm/ Sodium Chloride) 100 mls @ 200 mls/hr IV ONETIME ONE Stop: 07/22/17 20:44 Last Admin: 07/22/17 20:36 Dose: 200 mls/hr Ibuprofen (Motrin) 600 mg PO Q8H PRN PRN Reason: Pain Last Admin: 07/21/17 06:26 Dose: 600 mg Levothyroxine Sodium (Levothroid) 137 mcg PO DAILY@0600 [facility] Last Admin: 07/21/17 07:54 Dose: Not Given Levothyroxine Sodium (Levothyroxine) 0 mcg PO DAILY@0600 [facility] Last Admin: 07/21/17 06:25 Dose: 125 mcg Levothyroxine Sodium (Levothyroxine) 0 mcg PO DAILY@0600 [facility] Levothyroxine Sodium (Levothyroxine) 0 mcg PO DAILY@0600 [facility] Last Admin: 07/21/17 06:25 Dose: 25 mcg Lorazepam (Ativan) 1 mg IVPUSH ONETIME ONE Stop: 07/21/17 11:06 Last Admin: 07/21/17 12:34 Dose: Not Given Metformin HCl (Glucophage) 1,000 mg PO BIDMEALS [facility] Last Admin: 07/21/17 06:26 Dose: 1,000 mg Metformin HCl (Glucophage) 1,000 mg PO BIDMEALS [facility] Vancomycin HCl (Pharmacy To Dose - Vancomycin) 1 dose .XX ASDIRECTED [facility] - Exam General: Reports: Alert, Oriented, Cooperative, No Acute Distress, Moderate Distress (Morbidly Obese) HEENT: Reports: Pupils Equal, Pupils Reactive, EOMI, Mucous Membr. Moist/[place] Neck: Reports: Supple, Trachea Midline, No JVD, Other (short and thick; has a palpable mass on her left upper neck ) Lungs: Reports: Clear to Auscultation, Normal Respiratory Effort Cardiovascular: Reports: Regular Rate, Regular Rhythm GI/Abdominal Exam: Normal Bowel Sounds, Soft, Non-Tender, No Organomegaly, No Distention, No Abnormal Bruit (Female) Exam: Deferred Rectal (Female) Exam: Deferred Back Exam: Reports: Normal Inspection, Decreased Range of Motion Extremities: Normal Range of Motion (right leg), Non-Tender (right leg), No Pedal Edema (right leg), Normal Capillary Refill (right leg), Pedal Edema (left leg), Limited Range of Motion (left leg), Increased Warmth (left leg), Redness ( left leg) Skin: Reports: Warm, Dry, Intact Wound/Incisions: Reports: Erythema Improving Neurological: Reports: No New Focal Deficit Psy/Mental Status: Reports: Alert, Normal Affect, Normal Mood *Q Meaningful Use (DIS) - VTE *Q VTE Criteria *Q: - Stroke *Q Stroke Criteria *Q: - AMI *Q AMI Criteria *Q:
[2017-07-28 16:18] VITALS: BP 99/67
== END 2017-07-28 15:50 | DRG 603 ==
LOC: JD.ED 09:59 → UNDOADMIN 14:08 → JD.MS 14:08 → JD.OB 07-27 16:53
PROVIDERS: ADMIT Internal Medicine Cardiovascular Disease; ATTEND Internal Medicine Cardiovascular Disease
DX: L03.116 Cellulitis of left lower limb (principal); Z68.43 Body mass index [BMI] 50.0-59.9, adult; L97.528 Non-pressure chronic ulcer of other part of left foot with other specified severity; I12.9 Hypertensive chronic kidney disease with stage 1 through stage 4 chronic kidney disease, or unspecified chronic kidney disease; E11.22 Type 2 diabetes mellitus with diabetic chronic kidney disease; N18.3 Chronic kidney disease, stage 3 (moderate); Z79.84 Long term (current) use of oral hypoglycemic drugs; E78.00 Pure hypercholesterolemia, unspecified; Z86.718 Personal history of other venous thrombosis and embolism; M19.90 Unspecified osteoarthritis, unspecified site; E03.9 Hypothyroidism, unspecified; E66.01 Morbid (severe) obesity due to excess calories; F17.210 Nicotine dependence, cigarettes, uncomplicated; Z79.82 Long term (current) use of aspirin; Z79.899 Other long term (current) drug therapy; Z88.7 Allergy status to serum and vaccine; E11.621 Type 2 diabetes mellitus with foot ulcer; M71.20 Synovial cyst of popliteal space [Baker], unspecified knee; S92.255A Nondisplaced fracture of navicular [scaphoid] of left foot, initial encounter for closed fracture; X58.XXXA Exposure to other specified factors, initial encounter; E11.649 Type 2 diabetes mellitus with hypoglycemia without coma; E11.65 Type 2 diabetes mellitus with hyperglycemia; Z86.711 Personal history of pulmonary embolism; I95.9 Hypotension, unspecified; Z91.19 Patient's noncompliance with other medical treatment and regimen
CPT/HCPCS: 36415; 73718-26-LT; 73718-LT; 80048; 80053; 80061; 82962; 83036; 83605; 83735; 85025; 85027; 85610; 85730; 86140; 87040; 87641; 93971-26-LT; 93971-LT; 96365; 96366; 96367; 96375; 97110-GP; 97162-GP; 97165-GO; 97530-GP; 99285; 99285-25; A9270-GY; J0295; J1170; J2543; J3370; J7030; J7040; J7050

== ENCOUNTER 2018-09-13 14:12 | Emergency (ER) | payer MEDICAID ==
[2018-09-13 14:29] VITALS: BP 112/58
[2018-09-13] MEDS ORDERED: Ibuprofen 600 MG Tab PO ONE (15:19)
--- NOTE | 2018-09-13 15:25 | EDM.PDOC ---
ED HPI GENERAL MEDICAL PROBLEM - General Chief Complaint: Upper Extremity Injury/Pain Time Seen by Provider: 09/13/18 14:20 Source of Information: Reports: Patient History Limitations: Reports: No Limitations - History of Present Illness INITIAL COMMENTS - FREE TEXT/NARRATIVE: 53 yo F comes in today for L arm pain which started 09/07/18, after she played tug-of-war with her dog. She stated the pain didn't start until the next day and describes it more as an achy, dull pain than a sharp, sudden pain. She did not feel any "pop" or tearing sensation during the activity. She states she feels she has "pulled a muscle" and she has had similar injury in the past, as she works at a [id number] and is constantly using the [employer]. The last time she had an injury like this was 2 years ago and muscle relaxant helped. She has tried massage therapy, Ice/heat therapy with no success. She has not tried OTC pain medication. No other complaints at this time. Left Arm Pain Score (Numeric/FACES): 8 - Related Data Allergies Allergy/AdvReac Type Severity Reaction Status Date / Time ceresin [From Eucerin] Allergy Rash Verified 05/01/18 16:11 emollient combination no.33 Allergy Rash Verified 05/01/18 16:11 [From Eucerin] isopropyl myristate Allergy Rash Verified 05/01/18 16:11 [From Eucerin] lanolin alcohols Allergy Rash Verified 05/01/18 16:11 [From Eucerin] mineral oil [From Eucerin] Allergy Rash Verified 05/01/18 16:11 petrolatum,white Allergy Rash Verified 05/01/18 16:11 [From Eucerin] soap [From Eucerin] Allergy Rash Verified 05/01/18 16:11 Tetanus Vaccines and Toxoid Allergy Swelling Verified 05/01/18 16:11 [Tetanus Vaccines & Toxoid] water [From Eucerin] Allergy Rash Verified 05/01/18 16:11 Home Meds: Home Meds Gemfibrozil 600 mg PO BID 01/28/17 [History] Levothyroxine Sodium [Levoxyl] 225 mcg PO DAILY 01/28/17 [History] glipiZIDE [Glucotrol XL] 5 mg PO BID 01/28/17 [History] metFORMIN [Glucophage XR] 1,000 mg PO BID 01/28/17 [History] Aspirin 325 mg PO DAILY 07/20/17 [History] Gabapentin [Neurontin] 300 mg PO BID 07/20/17 [History] Empagliflozin [Jardiance] 25 mg PO DAILY 05/01/18 [History] Lisinopril [Zestril] 2.5 mg PO DAILY 05/01/18 [History] Triamterene/Hydrochlorothiazid [Triamterene-HCTZ 37.5-25 MG] 1 tab PO DAILY [History] atorvaSTATin [Lipitor] 20 mg PO DAILY 05/01/18 [History] Saccharomyces Boulardii [Florastor] 250 mg PO DAILY #28 cap 05/05/18 [Rx] cephALEXin [Keflex] 500 mg PO Q6HR #28 cap 05/05/18 [Rx] Past Medical History HEENT History: Reports: Impaired Vision Cardiovascular History: Reports: Blood Clots/VTE/DVT, High Cholesterol, Hypertension Gastrointestinal History: Reports: Cholelithiasis Musculoskeletal History: Reports: Arthritis Neurological History: Reports: Neuropathy, Diabetic Endocrine/Metabolic History: Reports: Diabetes, Type II, Hypothyroidism, Obesity /BMI 30+ Dermatologic History: Reports: Cellulitis - Past Surgical History HEENT Surgical History: Reports: Adenoidectomy, Tonsillectomy GI Surgical History: Reports: Cholecystectomy Social & Family History - Family History Family Medical History: Noncontributory Cardiac: Reports: Other (See Below) Other Cardiac Family History: hypotension Respiratory: Reports: Asthma, COPD Other Respiratory Family Hisory: Diabetes mom, grandmother dementia. 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 ED EXAM, GENERAL - Physical Exam Exam: See Below Exam Limited By: No Limitations General Appearance: Alert Eye Exam: Bilateral Eye: EOMI, PERRL Head: Atraumatic, Normocephalic Neck: Normal Inspection, Supple, Non-Tender, Full Range of Motion Respiratory/Chest: No Respiratory Distress, Lungs Clear, Normal Breath Sounds Cardiovascular: Normal Peripheral Pulses, Regular Rate, Rhythm, No Edema, No Gallop, No JVD, No Murmur, No Rub Peripheral Pulses: 3+: Radial (L), Radial (R) GI/Abdominal: Normal Bowel Sounds, Soft, Non-Tender, No Organomegaly, No Distention, No Abnormal Bruit, No Mass Back Exam: Normal Inspection. No: Muscle Spasm, Paraspinal Tenderness, Vertebral Tenderness Extremities: Normal Inspection, Normal Range of Motion, Non-Tender, No Pedal Edema, Normal Capillary Refill, Arm Pain. No: Increased Warmth, Redness Neurological: Alert, Oriented, CN II-XII Intact, Normal Cognition, Normal Gait, Normal Reflexes, No Motor/Sensory Deficits Psychiatric: Normal Affect, Normal Mood Skin Exam: Warm, Dry, Intact, Normal Color, No Rash Course - Vital Signs Last Recorded V/S: Last Vital Signs Temp 97.8 F 09/13/18 14:27 Pulse 84 09/13/18 14:27 Resp 18 09/13/18 14:27 BP 112/58 L 09/13/18 14:27 Pulse Ox 98 09/13/18 14:27 - Orders/Labs/Meds Orders: Active Orders 24 hr Category Date Time Status DME for Discharge [COMM] Routine Oth 09/13/18 15:20 Ordered Meds: Medications Discontinued Medications Generic Name Dose Route Start Last Admin Trade Name Meng PRN Reason Stop Dose Admin Ibuprofen 600 mg 09/13/18 15:19 Motrin PO 09/13/18 15:20 ONETIME ONE - Re-Assessments/Exams Free Text/Narrative Re-Assessment/Exam: 09/13/18 15:26 I have ordered Ibuprofen 600mg PO one time for pain relief and sling. At this time, with history and physical exam, there does not seem to be a need for Xray or ortho f/u. She may go home with the sling and use OTC ibuprofen for relief as well as ice. Departure - Departure Time of Disposition: 15:27 Disposition: Home, Self-Care 01 Condition: Good Clinical Impression: Sprain of left upper arm - Discharge Information *PRESCRIPTION DRUG MONITORING PROGRAM REVIEWED*: Not Applicable *COPY OF PRESCRIPTION DRUG MONITORING REPORT IN PATIENT KENNY: Not Applicable Instructions: Shoulder Pain, [id number], How to Use a Sling, Pain Medicine Instructions, [id number] Referrals: John Moreau MD [Primary Care Provider] - Forms: ED Department Discharge Additional Instructions: You were seen today for left upper arm strain after overusing the arm while playing with your dog on Friday. Your physical exam was not worrisome for any broken bones, rotator cuff tear or other trauma. At this time, it is recommended you rest the arm in a sling, ice it, and use over the counter ibuprofen for pain relief. Will also send home with rx for muscle relaxant, Flexeril 1 tab daily, to use as needed for pain. Please do not operate any machinery/drive while taking this medication. Recommend f/u with orthopedic if no improvement in your arm within the next couple of weeks. Please return to ED if new or worsening symptoms. - My Orders Last 24 Hours: My Active Orders 09/13/18 15:20 DME for Discharge [COMM] Routine - Assessment/Plan Last 24 Hours: My Active Orders 09/13/18 15:20 DME for Discharge [COMM] Routine
== END 2018-09-13 15:40 | disposition home or self-care (01) ==
LOC: JD.ED 14:12
DX: S43.402A Unspecified sprain of left shoulder joint, initial encounter (principal); S53.402A Unspecified sprain of left elbow, initial encounter; E78.00 Pure hypercholesterolemia, unspecified; I10 Essential (primary) hypertension; E11.40 Type 2 diabetes mellitus with diabetic neuropathy, unspecified; E03.9 Hypothyroidism, unspecified; F17.210 Nicotine dependence, cigarettes, uncomplicated; Z88.8 Allergy status to other drugs, medicaments and biological substances; Z79.899 Other long term (current) drug therapy; X50.0XXA Overexertion from strenuous movement or load, initial encounter; Z79.84 Long term (current) use of oral hypoglycemic drugs
CPT/HCPCS: 99283; A9270; 99282

== ENCOUNTER 2018-12-19 18:56 | Emergency (ER) | payer MEDICAID ==
[2018-12-19 19:32] VITALS: BP 107/71
[2018-12-19] MEDS ORDERED: Ibuprofen 600 MG Tab PO ONE (20:23)
[2018-12-19] MEDS ORDERED: Orphenadrine 100 MG Tab.ER PO STA (20:23)
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
--- NOTE | 2018-12-20 19:34 | CR ---
Right knee: Four views of the right knee were obtained. Comparison: No previous knee exam. Slight osteophytes are noted off the medial and lateral knee. Study is not a weight bearing view to evaluate for joint space narrowing. Minimal spurring is noted off the patella. Slightly sclerotic area within the lateral tibial plateau is seen most likely due to old injury. No acute fracture or other abnormality is appreciated. Impression: 1. Mild degenerative change and probable old injury to the lateral tibial plateau. 2. I see nothing to indicate acute abnormality. Diagnostic code #2
== END 2018-12-19 21:29 | disposition home or self-care (01) ==
LOC: JD.ED 18:56
DX: S86.911A Strain of unspecified muscle(s) and tendon(s) at lower leg level, right leg, initial encounter (principal); I12.9 Hypertensive chronic kidney disease with stage 1 through stage 4 chronic kidney disease, or unspecified chronic kidney disease; N18.9 Chronic kidney disease, unspecified; E11.22 Type 2 diabetes mellitus with diabetic chronic kidney disease; E03.9 Hypothyroidism, unspecified; E11.40 Type 2 diabetes mellitus with diabetic neuropathy, unspecified; E66.9 Obesity, unspecified; F17.210 Nicotine dependence, cigarettes, uncomplicated; Z79.899 Other long term (current) drug therapy; Z98.890 Other specified postprocedural states; Z88.7 Allergy status to serum and vaccine; Z88.8 Allergy status to other drugs, medicaments and biological substances; Z90.49 Acquired absence of other specified parts of digestive tract; V57.4XXA Person boarding or alighting a pick-up truck or van injured in collision with fixed or stationary object, initial encounter
CPT/HCPCS: 73562; 99283; A9270

== ENCOUNTER 2020-01-21 17:25 | Emergency (ER) | payer MEDICAID ==
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
[2020-01-21 17:33] VITALS: BP 107/75; PULSE 88
--- NOTE | 2020-01-21 18:25 | CT ---
CT chest Technique: Multiple axial sections through the chest were obtained. Intravenous contrast not utilized. Comparison: No previous study. Findings: Multiple surgical clips are seen at the base of the neck presumably from previous thyroidectomy. Mediastinum and hilar region show no adenopathy. Aorta shows no aneurysm with atherosclerotic calcification. Mild coronary artery calcification is seen. Subcutaneous increased density as well as skin thickening is seen within the anterior left chest presumably due to contusion and skin injury. No axillary adenopathy is seen. Lungs show no acute parenchymal change. Bone window settings were reviewed. No discrete rib abnormality is appreciated. Mild degenerative spurring is noted within the spine. Nothing acute is appreciated within the spine or within the sternum. Impression: 1. Soft tissue injury within the anterior left chest as described above. 2. No other acute finding is seen on CT study of the chest. Diagnostic code #2 This report was dictated in MDT
== END 2020-01-21 19:28 | disposition home or self-care (01) ==
LOC: JD.ED 17:25
DX: S20.212A Contusion of left front wall of thorax, initial encounter (principal); S30.811A Abrasion of abdominal wall, initial encounter; I12.9 Hypertensive chronic kidney disease with stage 1 through stage 4 chronic kidney disease, or unspecified chronic kidney disease; E11.22 Type 2 diabetes mellitus with diabetic chronic kidney disease; N18.9 Chronic kidney disease, unspecified; E78.00 Pure hypercholesterolemia, unspecified; E11.40 Type 2 diabetes mellitus with diabetic neuropathy, unspecified; E03.9 Hypothyroidism, unspecified; E66.9 Obesity, unspecified; F17.210 Nicotine dependence, cigarettes, uncomplicated; Z68.42 Body mass index [BMI] 45.0-49.9, adult; Z88.8 Allergy status to other drugs, medicaments and biological substances; Z88.7 Allergy status to serum and vaccine; Z79.82 Long term (current) use of aspirin; Z79.899 Other long term (current) drug therapy; V59.9XXA Occupant (driver) (passenger) of pick-up truck or van injured in unspecified traffic accident, initial encounter
CPT/HCPCS: 71250; 71250-26; 99283; 99284-25

== ENCOUNTER 2025-06-14 14:10 | Emergency (ER) | payer MEDICARE, MEDICAID ==
[2025-06-14 15:51] LABS: BASOPHILS ABSOLUTE AUTO 0.0 K/mm3 (0.0-0.2); BASOPHILS PERCENT AUTO 0.2 % (0.0-1.0); EOSINOPHILS ABSOLUTE AUTO 0.2 K/mm3 (0.0-0.4); EOSINOPHILS PERCENT AUTO 2.6 % (0.0-6.0); IMMATURE GRAN ABSOLUTE AUTO 0.03 K/mm3 (0.00-0.05); IMMATURE GRAN PERCENT AUTO 0.3 % (0.0-0.4); LYMPHOCYTES ABSOLUTE AUTO 1.6 K/mm3 (1.0-4.8); LYMPHOCYTES PERCENT AUTO 17.7 % (24.0-44.0); MEAN PLATELET VOLUME 10.4 fl (9.4-12.3); MONOCYTES ABSOLUTE AUTO 0.5 K/mm3 (0.0-0.8); MONOCYTES PERCENT AUTO 5.2 % (0.0-8.0); NEUTROPHILS ABSOLUTE AUTO 6.8 K/mm3 (1.8-7.7); NEUTROPHILS PERCENT AUTO 74.0 % (41.0-71.0); NRBC ABSOLUTE 0.00 (0.00-0.02); NRBC PERCENT 0.0 % (0.0-0.2); PLATELET COUNT,PLT 304 K/mm3 (150-400); RED BLOOD CELL COUNT 4.26 M/mm3 (4.10-5.30); WHITE BLOOD CELL COUNT,WBC 9.21 K/mm3 (3.9-11.3)
[2025-06-14 16:16] LABS: LACTIC ACID 1.0 mmol/L (0.4-2.0)
[2025-06-14 16:26] LABS: A/G RATIO 0.7 (1-2); ALANINE AMINOTRANSFERASE,ALT 16.0 U/L (14-59); ASPARTATE AMNIOTRANSFERASE,AST 22.0 U/L (15-37); BILIRUBIN TOTAL 0.7 mg/dL (0.2-1.0); BLOOD UREA NITROGEN,BUN 30.0 mg/dL (7-18); CARBON DIOXIDE,CO2 29.0 mEq/L (21-32); CHLORIDE,CL 103.0 mEq/L (98-107); CREATININE 1.5 mg/dL (0.55-1.02); EST CRCL DRUG DOSING (CG) 36.79 mL/min; ESTIMATED GFR 40.0 mL/min (>60); GLUCOSE RANDOM 113.0 mg/dL (70-99); POTASSIUM,K 4.2 mEq/L (3.5-5.1); PROTEIN TOTAL,TP 7.6 g/dl (6.4-8.2); SODIUM,NA 142.0 mEq/L (136-145)
[2025-06-14] MEDS: Sodium Chloride 0.9% 10 ML Syringe FLUSH ONE (17:03)
[2025-06-14] MEDS: Iopamidol 755 Mg/ML 100 ML Bottle IVPUSH ONE (17:03)
[2025-06-14 19:18] VITALS: BP 120/76; PULSE 76
== END 2025-06-14 19:18 | disposition home or self-care (01) ==
LOC: JD.ED 14:10
DX: S42.011A Anterior displaced fracture of sternal end of right clavicle, initial encounter for closed fracture (principal); I12.9 Hypertensive chronic kidney disease with stage 1 through stage 4 chronic kidney disease, or unspecified chronic kidney disease; N18.9 Chronic kidney disease, unspecified; E78.00 Pure hypercholesterolemia, unspecified; E11.22 Type 2 diabetes mellitus with diabetic chronic kidney disease; E11.42 Type 2 diabetes mellitus with diabetic polyneuropathy; E03.9 Hypothyroidism, unspecified; E66.9 Obesity, unspecified; F17.200 Nicotine dependence, unspecified, uncomplicated; Z90.49 Acquired absence of other specified parts of digestive tract; Z88.7 Allergy status to serum and vaccine; Z88.8 Allergy status to other drugs, medicaments and biological substances; Z91.048 Other nonmedicinal substance allergy status; Z79.890 Hormone replacement therapy; Z79.82 Long term (current) use of aspirin; Z79.84 Long term (current) use of oral hypoglycemic drugs; Z79.899 Other long term (current) drug therapy; X58.XXXA Exposure to other specified factors, initial encounter; Z68.41 Body mass index [BMI] 40.0-44.9, adult
CPT/HCPCS: 36415; 71045; 71275; 73030; 80053; 83605; 83880; 85025; 85379; 99284; Q9967